=== PATIENT | female | born 1965 | race Caucasian/White ===

== ENCOUNTER 2017-11-30 15:28 | Emergency (ER) | payer BC, OTHER ==
[~2017-11-30] VITALS: Ht 165.1 cm; Wt 94.6 kg
[~2017-11-30 15:28] MED LIST: ACET1TAB84 PO; FRRS300 PO; IBUP-1105 PO; OXYC-57 PO
[2017-11-30 15:34] VITALS: TEMP 36.7; Ht 165.1 cm; Wt 94.6 kg
[2017-11-30] MEDS ORDERED: FERR1TAB13 PO (16:24)
[2017-11-30] MEDS ORDERED: IBUP-103 PO (16:24)
--- NOTE | 2017-11-30 16:43 | DIAGNOSTIC IMAGING REPORT ---
R TIBIA/FIBULA 2 VIEWS ROUTINE CLINICAL HISTORY: R lower leg pain pain COMPARISON: None. DISCUSSION: The bones and joint spaces appear intact. There is no evidence of fracture, dislocation or bony disease. There is no evidence for soft tissue swelling. IMPRESSION: Negative study. The above report was generated using voice recognition software. It may contain grammatical, syntax or spelling errors. Electronically signed by: Alex Torres M.D. 11/30/2017 4:41 PM Dictated Date/Time: 11/30/2017 4:41 PM
[2017-11-30] MEDS ORDERED: HYDR-5688 PO (17:29)
[2017-11-30 17:49] VITALS: BP 168/82; PULSE 78; O2SAT 98
--- NOTE | 2017-12-01 16:10 | EMERGENCY ROOM VISIT NOTE ---
ED Visit Note First contact with patient: 15:39 Chief Complaint: Right calf pain. History of Present Illness: Ms. Langley is a 52-year-old white female who ambulates into the ED on crutches accompanied by her complaining of left calf pain. Historically patient reports she has had a previous DVT in the right leg. 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 She reports last evening about 5 PM she was working with the cows and she reports they started to encroach in her area. She started pushing them away and when she twisted to run away she felt a popping sensation in the area of the gastrocnemius. She reports since that time she has been having pain in the area of the gastrocnemius and difficulty walking. Currently she describes her pain as a sharp/throbbing discomfort in the gastrocnemius. While at rest her pain is 1/10 and with ambulation and dorsiflexion her pain is 8/10. Her pain also increases but to a lesser extent with palpation. She has been using ibuprofen without relief of her discomfort. She denies any associated symptoms including skin eruptions, skin color changes, upper respiratory tract symptoms, cough, wheezing, shortness of breath , chest pain, palpitations, orthopnea, recent surgery/inactivity/extended travel , claudication, cramping, right hip pain, right thigh pain, right ankle pain, right foot pain, right lower extremity weakness/numbness/tingling. Review of Systems: As noted above in history of present illness. 8 body systems were reviewed and found to be negative as noted above. Past Medical History: As previously noted. Current Medications: Iron tablets, ibuprofen and acetaminophen. Allergies to Medications: Penicillin. Social History: Patient is currently employed; she feels safe in her home environment; she denies tobacco and alcohol use. Physical Examination: Vital Signs: Date Time Temp Pulse Resp B/P (MAP) Pulse Ox O2 Delivery O2 Flow Rate FiO2 11/30/17 17:49 78 16 168/82 98 11/30/17 15:34 36.7 83 18 152/87 95 Room Air GENERAL: 52-year-old female in mild to moderate distress due to pain, nontoxic- appearing, afebrile and hemodynamically stable. NEUROLOGICAL: Awake, alert and oriented to person, place and time. Answering questions appropriately and following commands. SKIN: Warm, dry and pink. No soft tissue eruptions or trauma noted. BACK: No tenderness over the bony lumbar spine. Full range of motion of the lumbar spine. No paraspinous muscle tenderness or spasm. RIGHT LOWER EXTREMITY: No gross bony deformity. No shortening or malrotation. No tenderness over the hip, thigh, anterior knee, ankle or foot. Mild to moderate tenderness over the mid aspect of the gastrocnemius. This area is firm also but is not erythematous or edematous. I believe this is consistent with a possible muscle rupture that has rolled superiorly. Throughout the knee there is no joint line tenderness. No laxity of the collateral cruciate ligaments. Negative patellar apprehension test. Negative ballottement test. Ganesh's test was deferred. Patient has minimally diminished strength in plantarflexion of the ankle. The Achilles tendon was palpable but not tender or erythematous. She had markedly diminished dorsiflexion strength which dramatically increased her discomfort. There is no dependent edema. No palpable cords. Distal pulses, sensation and capillary refill was intact. ED Course: Patient is assessed as noted above. Patient's medication list was reviewed. Patient was offered pain medication and refused. Right Lower Leg X-Rays: Were read by myself and the radiologist showing no acute fractures or dislocations. Patient was placed in an Ortho-Glass splint with the knee and partial plantar flexion; patient did bring crutches from a previous left leg injury and they were reevaluated to make sure they were fitting appropriately.. Patient was educated about today's findings and instructed on her treatment plan ; she verbalized understanding and agreement with this plan. Clinical Impression: Right calf pain. Decision-Making: Initially my differential diagnosis I considered gastrocnemius strain, Achilles tendon injury, tibial/fibula fracture and other causes. Disposition: Patient discharged home in stable condition accompanied by her ; prior to departure she was reassessed and subjectively reported she was feeling the same. Plan: Comfort measures were discussed with the patient including a sliding pain medication scale of acetaminophen, ibuprofen and [place]; her name was checked on state database and no red flags were noted and she was given appropriate narcotic precautions. Other comfort measures including rest, ice, splint and nonweightbearing crutches were discussed with the patient. Patient was encouraged to follow-up with orthopedics for recheck. Patient was encouraged to return the ED for worsening/uncontrolled pain, worsening swelling, leg weakness/numbness/tingling or any new/concerning symptoms.
== END 2017-11-30 17:47 | disposition home or self-care (01) ==
LOC: C.EDB 15:29 → C.EDD 17:47
DX: M79.661 Pain in right lower leg (principal); X50.1XXA Overexertion from prolonged static or awkward postures, initial encounter; Y92.79 Other farm location as the place of occurrence of the external cause; Y99.0 Civilian activity done for income or pay

== ENCOUNTER → 2017-12-04 | Outpatient (CLI) | payer OTHER ==
[~2017-12-04] MED LIST changes: +FERR1TAB13 PO; -FRRS300 PO; +HYDR-5688 PO; +IBUP-103 PO; -IBUP-1105 PO; -OXYC-57 PO
--- NOTE | 2017-12-04 16:26 | DIAGNOSTIC IMAGING REPORT ---
VENOUS DOPP LOWER EXT UNILAT HISTORY: 52 years-old Female HX DVT/PE, R LEG MUSCLE TEAR acute right leg pain and swelling COMPARISON: Duplex venous Doppler study of lower extremities 09/07/2015 TECHNIQUE: Multiple real-time sonographic images of the right lower extremity deep venous structures were obtained assessing grayscale appearance, color and spectral flow FINDINGS: The common femoral, profunda femoris and superficial femoral veins are patent. Occlusive thrombus with noncompressibility of the vessel involves the popliteal vein extending from the proximal portion of the vessel through the distal aspect of the posterior tibial and one of the paired peroneal veins. IMPRESSION: Occlusive deep venous thrombosis of the popliteal vein extending into the distal aspect of the posterior tibial vein and involving one of the paired peroneal veins. The above report was generated using voice recognition software. It may contain grammatical, syntax or spelling errors. Electronically signed by: Koko Clements M.D. 12/04/2017 4:24 PM Dictated Date/Time: 12/04/2017 4:21 PM
== END | disposition home or self-care (01) ==
LOC: C.ULTR 15:53
PROVIDERS: ATTEND Family Medicine Sports Medicine
DX: I82.4Z1 Acute embolism and thrombosis of unspecified deep veins of right distal lower extremity (principal); Z86.718 Personal history of other venous thrombosis and embolism; S86.119A Strain of other muscle(s) and tendon(s) of posterior muscle group at lower leg level, unspecified leg, initial encounter; X58.XXXA Exposure to other specified factors, initial encounter

== ENCOUNTER 2019-03-16 10:33 | Inpatient (IN) ==
[2019-03-16] MEDS ORDERED: MoRPHine SULFATE 4 MG/ML 1 ML CARP\\VIAL IV STA ×2 (11:01→11:37)
[2019-03-16] MEDS ORDERED: ONDANSETRON INJ 2 MG/ML 2 ML VIAL IV STA (11:01)
--- NOTE | 2019-03-16 11:05 | Emergency Department Note ---
History of Present Illness General Chief complaint: Abdominal Pain Stated complaint: ABD PAIN, VOMITING Time Seen by Provider: 03/16/19 10:54 History of Present Illness Maximum Pain Intensity: 10 This is a 53-year-old female that presents to the emergency department via private vehicle accompanied by male with complaints of "abdominal pain, vomiting". The patient notes that yesterday around 10 PM all of a sudden she began with diffuse abdominal pain that is worse in the left. Her bowel movements have been mucus-like over the past week. She has never had this before. No dysuria or urinary symptoms. She denies history of ulcerative colitis or Crohn's. She has a penicillin allergy, and notes that she has a history of PE and is currently on Xarelto but has not missed any doses. Last dose was around 10 PM but she vomited about half an hour later. No hematemesis. No hematochezia that she is aware of. This does not feel similar to any previous pain. No chest pain or shortness of breath. No fevers or chills. No abdominal surgeries. Home Medications Home Medications Medication Instructions Recorded Confirmed Type rivaroxaban [Xarelto] 20 mg PO PM 03/16/19 03/16/19 History Allergies Allergy/AdvReac Type Severity Reaction Status Date / Time Penicillins Allergy Severe HIVES, Verified 03/16/19 11:21 SOB, FACIAL SWELLING benzonatate AdvReac Intermediate rash Verified 03/16/19 11:21 [From Dior Young] Past Med/Surg History Medical History Lower leg fracture (Resolved) s/p pins & screws Pulmonary embolism (Chronic) Surgical History History of surgery on extremity Hx of appendectomy S/P lobectomy of lung Pt reports LLL resected s/p PE Family History Mother Factor V Leiden Social History Preferred Language: Macedonian Communication Ability: Effective Skylights Assembler Required: No Beliefs That Will Affect Care: None Current Living Situation: Spouse Other Information That Helps Us Care for You: No Feels Safe at Home: Yes Safety Concerns: Feels Safe At This Time Smoking Status: Never smoker Hx Alcohol Use: No Hx Substance Use: No Review of Systems A total of 10 systems reviewed and were otherwise negative Physical Exam Vital Signs Vital Signs - 24 hr 03/16/19 10:42 03/16/19 11:01 03/16/19 11:49 Temperature 36.6 C Temperature Source Oral Sepsis Recent Fever Within 48 Hours No Sepsis Action Taken by Nursing No Action Required Pulse Rate 102 H Pulse Rate [Left Finger] 83 Respiratory Rate 20 18 Respiratory Effort / Characteristics Non-Labored Non-Labored Spontaneous Respiratory Depth Normal Normal Respiratory Pattern Regular Blood Pressure 131/57 L Blood Pressure [Left Arm] 138/60 Blood Pressure Mean 81 Blood Pressure Mean [Left Arm] 86 Blood Pressure Position [Left Arm] Lying Pulse Oximetry 96 99 95 Oxygen Delivery Method Room Air Room Air Room Air 03/16/19 12:51 03/16/19 13:04 Temperature 37.0 C Temperature Source Oral Sepsis Recent Fever Within 48 Hours Sepsis Action Taken by Nursing Pulse Rate Pulse Rate [Left Finger] 79 82 Respiratory Rate 22 20 Respiratory Effort / Characteristics Non-Labored Spontaneous Non-Labored Spontaneous Respiratory Depth Normal Normal Respiratory Pattern Regular Blood Pressure Blood Pressure [Left Arm] 122/59 L 130/59 L Blood Pressure Mean Blood Pressure Mean [Left Arm] 80 82 Blood Pressure Position [Left Arm] Lying Lying Pulse Oximetry 100 97 Oxygen Delivery Method Room Air Room Air VITAL SIGNS - Vital signs and nursing notes were reviewed. Slightly hypotensive in regard to diastolic, slightly tachycardic at 102. GENERAL -53-year-old female appearing her stated age who is in no acute distress but appears to be in pain and is laying in the right position.. Communicates well with provider and answers questions appropriately. SKIN - Without rashes. No meningeal or petechial rash. HEAD - NC/AT. EYES - PERRL with EOMI bilaterally. Sclera anicteric. EARS - No deformities of external structures noted on gross examination bilaterally. NOSE - Midline and without cyanosis. No epistaxis or purulent drainage noted. MOUTH/OROPHARYNX - Without perioral cyanosis. NECK - Neck with FROM. Supple to palpation. No lymphadenopathy noted. No nuchal rigidity. LUNGS - Chest wall symmetric without accessory muscle use, intercostals retractions, or central cyanosis. Normal vesicular breath sounds CTA B/L. No wheezes, rales, or rhonchi appreciated. CARDIAC - RRR with S1/S2. No murmur, rubs, or gallops appreciated. ABDOMEN - Abdominal contour normal without pulsations or visible masses. BS normoactive all four quadrants. Diffuse abdominal tenderness noted throughout. No palpable masses, hepatosplenomegaly, or ascites noted. EXTREMITIES - No clubbing or peripheral cyanosis. No pretibial edema present.+5/5 strength noted in UE/LE bilaterally. NEUROLOGIC - Cranial nerves II through XII grossly intact. PSYCH - A&Ox3 and cooperates fully with examiner. Pt is very pleasant and interacts well with examiner. RECTAL exam: Large amount of hemorrhoids were noted. There is no bright red blood. No stool was visualized. Exam had to be stopped short secondary to patient not being able to tolerate the exam. There was no stool seen. I did nonetheless test with Hemoccult and it was negative. Please be aware this could be a false negative. Course Administered Medications Pantoprazole Sodium 40 mg/ (Dextrose) 100 mls @ 20 mls/hr IV Q5H YUNG Stop: 04/15/19 12:59 Last Admin: 03/16/19 13:43 Dose: 20 mls/hr Documented by: [id number] Ciprofloxacin (Cipro) 400 mg in 200 mls @ 100 mls/hr IV Q12H YUNG Stop: 03/26/19 15:59 Last Admin: 03/16/19 16:20 Dose: 100 mls/hr Documented by: [id number] Metronidazole (Flagyl) 500 mg in 100 mls @ 100 mls/hr IV Q8H YUNG Stop: 03/26/19 15:59 Last Infusion: 03/16/19 17:20 Dose: 0 mls/hr Documented by: [id number] Admin: 03/16/19 16:18 Dose: 100 mls/hr Documented by: [id number] Ioversol (Optiray 320 100ml) 94 ml IV ONCE PRN PRN Reason: Interaction Checking Stop: 03/20/19 12:19 Last Admin: 03/16/19 12:21 Dose: 94 ml Documented by: [id number] Morphine Sulfate (Morphine Sulfate) 4 mg IV Q4H PRN PRN Reason: Pain Stop: 03/30/19 15:03 Last Admin: 03/16/19 16:25 Dose: 4 mg Documented by: [id number] Discontinued Medications Fentanyl Citrate (Fentanyl Citrate) 25 mcg IV NOW STA Stop: 03/16/19 13:29 Last Admin: 03/16/19 14:08 Dose: 25 mcg Documented by: [id number] Sodium Chloride (Nss 1000ml) 1,000 mls @ 999 mls/hr IV .Q1H1M YUNG Stop: 03/16/19 12:15 Last Infusion: 03/16/19 12:48 Dose: 0 mls/hr Documented by: [id number] Admin: 03/16/19 11:12 Dose: 999 mls/hr Documented by: [id number] Sodium Chloride (Nss 1000ml) 1,000 mls @ 999 mls/hr IV .Q1H1M YUNG Stop: 03/16/19 14:00 Last Infusion: 03/16/19 15:09 Dose: 0 mls/hr Documented by: [id number] Admin: 03/16/19 14:01 Dose: 999 mls/hr Documented by: [id number] Pantoprazole Sodium 80 mg/ (Dextrose) 120 mls @ 480 mls/hr IV NOW STA Stop: 03/16/19 13:13 Last Infusion: 03/16/19 14:22 Dose: 0 mls/hr Documented by: [id number] Admin: 03/16/19 13:43 Dose: 480 mls/hr Documented by: [id number] Morphine Sulfate (Morphine Sulfate) 4 mg IV NOW STA Stop: 03/16/19 11:02 Last Admin: 03/16/19 11:12 Dose: 4 mg Documented by: [id number] Morphine Sulfate (Morphine Sulfate) 4 mg IV NOW STA Stop: 03/16/19 11:38 Last Admin: 03/16/19 11:45 Dose: 4 mg Documented by: [id number] Ondansetron HCl (Zofran) 4 mg IV NOW STA Stop: 03/16/19 11:02 Last Admin: 03/16/19 11:12 Dose: 4 mg Documented by: [id number] Medical Decision Making Laboratory Data Result diagrams: 03/16/19 11:08 03/16/19 11:08 Lab Results 03/16/19 03/16/19 03/16/19 Range/Units 11:08 11:08 11:08 WBC 13.38 H (4.8-10.8) K/uL RBC 3.68 L (4.2-5.4) M/uL Hgb 6.1 L* (12.0-16.0) g/dL Hct 22.8 L (37-47) % MCV 62.0 L (80-100) fL MCH 16.6 L (25-34) pg MCHC 26.8 L (32-36) g/dL RDW Std Deviation 46.5 H (36.4-46.3) fL RDW Coeff of Omero 20.8 H (11.5-14.5) % Plt Count 371 (130-400) K/uL MPV 8.9 (7.4-10.4) fL Immature Gran % (Auto) 0.2 % Neut % (Auto) 84.5 % Lymph % (Auto) 9.7 % [place] % (Auto) 5.5 % Eos % (Auto) 0.0 % Baso % (Auto) 0.1 % Immature Gran # (Auto) 0.03 H (0.00-0.02) K/uL Neut # (Auto) 11.31 H (1.4-6.5) K/uL Lymph # (Auto) 1.30 (1.2-3.4) K/uL [place] # (Auto) 0.73 H (0.11-0.59) K/uL Eos # (Auto) 0.00 (0-0.5) K/uL Baso # (Auto) 0.01 (0-0.2) K/uL Hypochromasia Present Anisocytosis Present PT 10.7 (9.0-12.0) Seconds INR 1.0 (0.9-1.1) APTT 21.7 (21.0-31.0) Seconds PTT Ratio 0.8 Sodium 136 (136-145) mmol/L Potassium 3.4 L (3.5-5.1) mmol/L Chloride 105 (98-107) mmol/L Carbon Dioxide 18 L (21-32) mmol/L Anion Gap 13.0 H (3-11) BUN 12 (7-18) mg/dl Creatinine 1.03 (0.6-1.2) mg/dl Est Cr Clr Drug Dosing 71.3 ml/min Est GFR ( Amer) 71.9 Est GFR (Non-Af Amer) 62.0 BUN/Creatinine Ratio 11.4 (10-20) Glucose 134 H (70-99) mg/dl Lactate (0.4-2.0) mmol/L Calcium 9.4 (8.5-10.1) mg/dl Magnesium 1.9 (1.8-2.4) mg/dl Total Bilirubin 0.6 (0.2-1) mg/dl AST 25 (15-37) U/L ALT 34 (12-78) U/L Alkaline Phosphatase 65 (45-117) U/L Troponin I < 0.015 (0-0.045) ng/ml Total Protein 8.0 (6.4-8.2) gm/dl Albumin 3.8 (3.4-5.0) gm/dl Globulin 4.2 H (2.5-4.0) gm/dl Albumin/Globulin Ratio 0.9 (0.9-2) Lipase 86 (73-393) U/L Blood Type Blood Type Recheck Antibody Screen Crossmatch 03/16/19 03/16/19 03/16/19 Range/Units 11:08 12:05 12:23 WBC (4.8-10.8) K/uL RBC (4.2-5.4) M/uL Hgb (12.0-16.0) g/dL Hct (37-47) % MCV (80-100) fL MCH (25-34) pg MCHC (32-36) g/dL RDW Std Deviation (36.4-46.3) fL RDW Coeff of Omero (11.5-14.5) % Plt Count (130-400) K/uL MPV (7.4-10.4) fL Immature Gran % (Auto) % Neut % (Auto) % Lymph % (Auto) % [place] % (Auto) % Eos % (Auto) % Baso % (Auto) % Immature Gran # (Auto) (0.00-0.02) K/uL Neut # (Auto) (1.4-6.5) K/uL Lymph # (Auto) (1.2-3.4) K/uL [place] # (Auto) (0.11-0.59) K/uL Eos # (Auto) (0-0.5) K/uL Baso # (Auto) (0-0.2) K/uL Hypochromasia Anisocytosis PT (9.0-12.0) Seconds INR (0.9-1.1) APTT (21.0-31.0) Seconds PTT Ratio Sodium (136-145) mmol/L Potassium (3.5-5.1) mmol/L Chloride (98-107) mmol/L Carbon Dioxide (21-32) mmol/L Anion Gap (3-11) BUN (7-18) mg/dl Creatinine (0.6-1.2) mg/dl Est Cr Clr Drug Dosing ml/min Est GFR ( Amer) Est GFR (Non-Af Amer) BUN/Creatinine Ratio (10-20) Glucose (70-99) mg/dl Lactate 3.9 H* (0.4-2.0) mmol/L Calcium (8.5-10.1) mg/dl Magnesium (1.8-2.4) mg/dl Total Bilirubin (0.2-1) mg/dl AST (15-37) U/L ALT (12-78) U/L Alkaline Phosphatase (45-117) U/L Troponin I (0-0.045) ng/ml Total Protein (6.4-8.2) gm/dl Albumin (3.4-5.0) gm/dl Globulin (2.5-4.0) gm/dl Albumin/Globulin Ratio (0.9-2) Lipase (73-393) U/L Blood Type A Positive Blood Type Recheck A Positive Antibody Screen NEGATIVE Crossmatch See Detail Imaging Data Radiologist's Impression: ABDOMEN AND PELVIS CT WITH IV CONTRAST CT DOSE: 914.89 mGycm HISTORY: Acute generalized abdominal pain diffuse abd pain, mucus stools. TECHNIQUE: Multiaxial CT images of the abdomen and pelvis were performed following the use of intravenous contrast. A dose lowering technique was utilized adhering to the principles of ALARA. COMPARISON STUDY: CTA of the chest 04/05/2018 FINDINGS: Minimal dependent subsegmental bibasilar atelectasis. There is no pneumatosis or pneumoperitoneum. The imaged inferior cardiac chambers are unremarkable. Trace pericardial effusion. Mild nonspecific periportal edema. Liver is otherwise unremarkable. The spleen, pancreas and adrenal glands are also unremarkable. There is suggestion of mild gallbladder wall thickening. No cholelithiasis or biliary ductal dilation identified. Kidneys, ureters and urinary bladder are within normal limits. Uterus and adnexa are also within normal limits. Mild calcified plaque of the abdominal aorta without aneurysm. There is no adenopathy. Small hiatal hernia. No bowel obstruction. Trace free pelvic fluid. Suggestion of mild wall thickening noted throughout the mid to distal sigmoid colon. Mild colonic diverticulosis without acute diverticulitis. Terminal ileum is unremarkable. The appendix is not diagnostically visualized. No secondary signs of acute appendicitis. Tiny fat filled periumbilical hernia, diastases 1.9 cm. Soft tissues and breast parenchyma are unremarkable. Multilevel spondylitic spurring and facet arthrosis. IMPRESSION: 1. Mild wall thickening about the mid to distal sigmoid colon may be secondary to partial distention versus a nonspecific colitis. Correlate clinically. Additionally, there is trace free pelvic fluid which may be on a reactive basis. 2. Suggestion of mild gallbladder wall thickening. Correlate clinically. 3. No bowel obstruction, pneumatosis or pneumoperitoneum. 4. Small hiatal hernia. 5. Additional findings as above. Electronically signed by: Koko Clements M.D. 03/16/2019 12:41 PM MDM Narrative Patient was seen and evaluated as above in room C9. Review was performed of nursing notes and vital signs. After obtaining a thorough history and physical examination the above work up was performed. She presents to us today with lower abdominal pain. She is nontoxic on exam but appears to be in pain and is laying on the right side in the position. She was given IV morphine x2. Zofran for nausea. Leukocytosis of 13.38 with significant anemia with hemoglobin of 6.1. Type and screen/cross for 2 units were ordered. Consent was obtained by the attending physician. Coags are normal. Potassium 3.4. Lactic is 3.9. She was given fluids. She is a positive. I discussed these findings with Dr. Thomason. We discussed how the patient had the last dose of Xarelto last night and there is likely very little in her system as she vomited about half an hour after and has not had any today. No indication to reverse at this time however we discussed benefit versus risk of TXA but will hold at this time. A ratio of 2-1 red cell to plasma transfusion was recommended. She can be reached at [phone] with any questions. The patient was then managed pain farrell with fentanyl noting that she became slightly hypotensive. The concern is that with her decreased volume she could have had a slow GI bleed and now has ischemic colitis. CT of the abdomen pelvis shows nonspecific colitis. Given her lactic elevation and level of pain I believe it is reasonable until another diagnosis can be made. Case discussed with the attending physician, and subsequently the hospitalist and implementation project coordinator. Please refer to further documentation regarding her stay. Pharmacy did provide Protonix bolus drip. A rectal exam was performed on the patient with nurse post partum nurse at bedside. A large amount of hemorrhoids were noted but no bright red blood or melena. I will note that the patient had a difficult time tolerating this and this was stopped and no stool was able to be visualized. Although the Hemoccult was negative this could be a false negative. Patient was educated upon today's findings and will be admitted to the ICU for further evaluation and management. Case was discussed with the attending physician. GCS: 15 In the evaluation and treatment of this patient, the following differential diagnoses were considered: ASC, CO, Pneumonia, GERD, Cholecystitis, Ascending Cholangitis, dissection, ischemic colitis, Cholydocholithiasis, Bowel Obstruction, PE, Amongst Others. Impression & Plan Colitis, Anemia Critical Care Time Critical Care Time: Yes I have personally spent greater than 60 minutes of critical care time in the direct management of this patient. This includes bedside care, interpretation of diagnostic studies, and testing, discussion with consultants, patient, and family members, and other required patient management activities. This 60 minutes is in excess of all separately billable procedures. Discharge Plan Visit Data *Final* Discharge Date/Time: 03/16/19 14:55 Chief Complaint: Abdominal Pain Stated Complaint: ABD PAIN, VOMITING ED Provider: Ramon Whalen ED Midlevel Provider: Ulisses Alonso Discharge Problem: Colitis, Anemia Patient Disposition: Admitted As Inpatient Discharge Instructions Interventions: ED Discharge Assessment Last Done: 03/16/19 14:55
[2019-03-16] MEDS ORDERED: SODIUM CHLORIDE 0.9% 1000ML 1,000 ML IV SCH ×2 (11:15→13:00)
[2019-03-16 11:43] LABS: Partial Thromboplastin Ratio 0.8; Partial Thromboplastin Time 21.7 Seconds (21.0-31.0); Prothrombin Time 10.7 Seconds (9.0-12.0)
[2019-03-16 11:46] LABS: Alanine Aminotransferase 34 U/L (12-78); Albumin Level 3.8 gm/dl (3.4-5.0); Aspartate Aminotransferase 25 U/L (15-37); BUN Creatinine Ratio 11.4 (10-20); Blood Urea Nitrogen 12 mg/dl (7-18); Calcium 9.4 mg/dl (8.5-10.1); Carbon Dioxide 18 mmol/L (21-32); Chloride 105 mmol/L (98-107); Creatinine Clr Calc Pharmacy 71.3 ml/min; Est GFR (African American) 71.9; Glucose 134 mg/dl (70-99); Magnesium 1.9 mg/dl (1.8-2.4); Potassium 3.4 mmol/L (3.5-5.1); Sodium 136 mmol/L (136-145)
[2019-03-16 11:47] LABS: Hematocrit (blood only) 22.8 % (37-47); Hemoglobin 6.1 g/dL (12.0-16.0); Mean Corpuscular Hgb Conc 26.8 g/dL (32-36); Mean Platelet Volume 8.9 fL (7.4-10.4); Platelet Count 371 K/uL (130-400); RDW Coefficient of Variation 20.8 % (11.5-14.5); RDW Standard Deviation 46.5 fL (36.4-46.3); Red Blood Count 3.68 M/uL (4.2-5.4); White Blood Count 13.38 K/uL (4.8-10.8)
[2019-03-16 11:51] LABS: Albumin Globulin Ratio 0.9 (0.9-2); Alkaline Phosphatase 65 U/L (45-117); Bilirubin,Total 0.6 mg/dl (0.2-1); Globulin 4.2 gm/dl (2.5-4.0); Troponin I < 0.015 ng/ml (0-0.045)
[2019-03-16] MEDS ORDERED: SODIUM CHLORIDE 0.9% 250 ML IV PRN ×2 (12:09→13:03)
[2019-03-16] MEDS ORDERED: IOVERSOL 100ml IV PRN (12:20)
[2019-03-16 12:26] LABS: Anisocytosis Present; Basophils # (auto) 0.01 K/uL (0-0.2); Basophils % (auto) 0.1 %; Hypochromasia Present; Immature Granulocytes # (auto) 0.03 K/uL (0.00-0.02); Immature Granulocytes % (auto) 0.2 %; Lymphocytes % (auto) 9.7 %; Monocytes # (auto) 0.73 K/uL (0.11-0.59); Monocytes % (auto) 5.5 %; Neutrophils # (auto) 11.31 K/uL (1.4-6.5); Neutrophils % (auto) 84.5 %
--- NOTE | 2019-03-16 12:42 | CT Scan Report ---
ABDOMEN AND PELVIS CT WITH IV CONTRAST CT DOSE: 914.89 mGycm HISTORY: Acute generalized abdominal pain diffuse abd pain, mucus stools. TECHNIQUE: Multiaxial CT images of the abdomen and pelvis were performed following the use of intrave nous contrast. A dose lowering technique was utilized adhering to the principles of ALARA. COMPARISON STUDY: CTA of the chest 04/05/2018 FINDINGS: Minimal dependent subsegmental bibasilar atelectasis. There is no pneumatosis or pneumoperitoneum. Th e imaged inferior cardiac chambers are unremarkable. Trace pericardial effusion. Mild nonspecific periportal edema. Liver is otherwise unremarkable. The spleen, pancreas and adrenal glands are also unremarkable. There is suggestion of mild gallbladder wall thickening. No cholelithia sis or biliary ductal dilation identified. Kidneys, ureters and urinary bladder are within normal lock its. Uterus and adnexa are also within normal limits. Mild calcified plaque of the abdominal aorta wi thout aneurysm. There is no adenopathy. Small hiatal hernia. No bowel obstruction. Trace free pelvic fluid. Suggestion of mild wall thickenin g noted throughout the mid to distal sigmoid colon. Mild colonic diverticulosis without acute diverti culitis. Terminal ileum is unremarkable. The appendix is not diagnostically visualized. No secondary signs of acute appendicitis. Tiny fat filled periumbilical hernia, diastases 1.9 cm. Soft tissues and breast parenchyma are unremarkable. Multilevel spondylitic spurring and facet arthrosis. IMPRESSION: 1. Mild wall thickening about the mid to distal sigmoid colon may be secondary to partial distention versus a nonspecific colitis. Correlate clinically. Additionally, there is trace free pelvic fluid wh ich may be on a reactive basis. 2. Suggestion of mild gallbladder wall thickening. Correlate clinically. 3. No bowel obstruction, pneumatosis or pneumoperitoneum. 4. Small hiatal hernia. 5. Additional findings as above. Electronically signed by: Koko Clements M.D. 03/16/2019 12:41 PM
[2019-03-16] MEDS ORDERED: PANTOprazole 80 MG in DEXTROSE 5% 100 ML IV STA (12:59)
[2019-03-16] MEDS ORDERED: fentaNYL citrate 100 MCG/2 ML VIAL IV STA (13:28)
[2019-03-16] MEDS: PANTOprazole 40 MG in DEXTROSE 5% 100 ML IV SCH ×3 (13:43→23:28)
--- NOTE | 2019-03-16 14:00 | Critical Care Consultation ---
Date of Consultation March 16, 2019 Assessment & Plan (1) Abdominal pain: Neuro- awake alert. pain control CV- HD stable. elevated lactic acid. fluids and recheck Pulmonary- sat well on RA ID- abx for colitis cipro/metronidazole. Renal- cr ok. hypokalemia will replace GI- abdominal pain nonspecific colitis on CT. I am concerned about inflammatory bowel disease. it is not clear to me that she has acute GI bleed. I suspect her anemia is more chronic. will need GI eval for source of bleeding as well as for colitis. nausea control Heme- leukocytosis. anemia with low MCV likely iron deficiency. needs colonoscopy and possibly EGD for source. hold anticoagulation for now with possible bleeding. history of pulmonary embolism. has been on anticoagulation for 3 years. unsure she needs to continue as she had aprovoked PE. per pt has had hypercoagulable workup in the past that was negative Endocrine- keep blood sugars <180 Dispo- will need admission for further eval (2) Colitis: (3) Anemia: History of Present Illness Reason for Consultation: possible GI bleed History of Present Illness 53 y/o female with a history of pulmonary embolism related to leg surgery presenting with abdominal pain which started yesterday. She has also has nausea and vomiting last this morning. no blood. says at end vomit was yellow. no blood or dark stool. has been having trouble having a bowel movement and has had mucus in stool. Her abdominal pain is diffuse but worse in lower abd. prior to the pain she says he has generally been weak. She says she has been craving ice for the last 3 months. She recently had a cough and was treated with Tessalon pearls. she denies URI symptoms at that time and said her chest felt congested. In the ED she was found to have nonspecific colitis on CT. no clear bleeding source with hgb 6.1. no family history of inflammatory bowel disease. Allergies Allergy/AdvReac Type Severity Reaction Status Date / Time Penicillins Allergy Severe HIVES, Verified 03/16/19 11:21 SOB, FACIAL SWELLING benzonatate AdvReac Intermediate rash Verified 03/16/19 11:21 [From Tesganga Young] Home Medications Home Medications Medication Instructions Recorded Confirmed Type rivaroxaban [Xarelto] 20 mg PO PM 03/16/19 03/16/19 History Patient History Medical History Lower leg fracture (Resolved) Pulmonary embolism (Chronic) Surgical History History of surgery on extremity Hx of appendectomy Family History Mother Factor V Leiden Social History Feels Safe at Home: Yes Smoking Status: Never smoker Review of Systems Constitutional: + fatigue and + weakness; no fever and no chills Eyes: no diplopia and no worsening vision Ear, Nose, Mouth, Throat: no dizziness, no nasal congestion, no sinus pain/pressure and no sore throat Respiratory: + cough and + chest congestion; no dyspnea and no dyspnea on exertion Cardiovascular: no chest pain, no chest pain with activity, no palpitations and no lightheadedness Gastrointestinal: + abdominal pain, + nausea and + vomiting; no hematemesis, no diarrhea/loose stools, no blood in stools and no melena Genitourinary: no dysuria, no difficulty urinating, no urinary frequency and no urinary urgency Musculoskeletal: no back pain, no joint pain and no myalgia Integumentary: no rash and no new lesions Neurologic: no localized weakness, no numbness, no syncope and no headache(s) Psychiatric: no depression and no anxiety Endocrine: + fatigue; no cold intolerance and no heat intolerance Hematologic / Lymphatic: no easy bleeding and no easy bruising Allergy / Immunological: no rash Physical Exam Physical Exam: Constitutional: uncomfortable in pain NAD HEENT: normocephalic atraumatic. MMM. no cervical lymphadenopathy CV: RRR nl s1,s2 no murmurs rubs or gallops Lungs: clear to auscultation bilaterally. no accessory muscle use Abd: soft diffusely tender nondistended. + bowel sounds (rectal per ED hemorrhoids no stool, no gross blood) Ext: no edema. no cyanosis, no clubbing Skin: warm dry. no rash Neuro: alert and oriented. moving all extremities Psych: slightly anxious Results & Data Vital Signs (Past 12 Hours) Vital Signs Temp Pulse Pulse Resp BP BP Pulse Ox 03/16/19 13:04 37.0 C 82 20 130/59 L 97 03/16/19 12:51 79 22 122/59 L 100 03/16/19 11:49 83 18 138/60 95 03/16/19 11:01 99 07/01/19 10:42 36.6 C 102 H 20 131/57 L 96 Laboratory Results Laboratory Results - last 24 hr 03/16/19 03/16/19 03/16/19 11:08 11:08 11:08 WBC 13.38 H RBC 3.68 L Hgb 6.1 L* Hct 22.8 L MCV 62.0 L MCH 16.6 L MCHC 26.8 L RDW Std Deviation 46.5 H RDW Coeff of Omero 20.8 H Plt Count 371 MPV 8.9 Immature Gran % (Auto) 0.2 Neut % (Auto) 84.5 Lymph % (Auto) 9.7 Nolan % (Auto) 5.5 Eos % (Auto) 0.0 Baso % (Auto) 0.1 Immature Gran # (Auto) 0.03 H Neut # (Auto) 11.31 H Lymph # (Auto) 1.30 Nolan # (Auto) 0.73 H Eos # (Auto) 0.00 Baso # (Auto) 0.01 Hypochromasia Present Anisocytosis Present PT 10.7 INR 1.0 APTT 21.7 PTT Ratio 0.8 Sodium 136 Potassium 3.4 L Chloride 105 Carbon Dioxide 18 L Anion Gap 13.0 H BUN 12 Creatinine 1.03 Est Cr Clr Drug Dosing 71.3 Est GFR ( Amer) 71.9 Est GFR (Non-Af Amer) 62.0 BUN/Creatinine Ratio 11.4 Glucose 134 H Lactate Calcium 9.4 Magnesium 1.9 Total Bilirubin 0.6 AST 25 ALT 34 Alkaline Phosphatase 65 Troponin I < 0.015 Total Protein 8.0 Albumin 3.8 Globulin 4.2 H Albumin/Globulin Ratio 0.9 Lipase 86 Blood Type Blood Type Recheck Antibody Screen Crossmatch 03/16/19 03/16/19 03/16/19 11:08 12:05 12:23 WBC RBC Hgb Hct MCV MCH MCHC RDW Std Deviation RDW Coeff of Omero Plt Count MPV Immature Gran % (Auto) Neut % (Auto) Lymph % (Auto) Nolan % (Auto) Eos % (Auto) Baso % (Auto) Immature Gran # (Auto) Neut # (Auto) Lymph # (Auto) Nolan # (Auto) Eos # (Auto) Baso # (Auto) Hypochromasia Anisocytosis PT INR APTT PTT Ratio Sodium Potassium Chloride Carbon Dioxide Anion Gap BUN Creatinine Est Cr Clr Drug Dosing Est GFR ( Amer) Est GFR (Non-Af Amer) BUN/Creatinine Ratio Glucose Lactate 3.9 H* Calcium Magnesium Total Bilirubin AST ALT Alkaline Phosphatase Troponin I Total Protein Albumin Globulin Albumin/Globulin Ratio Lipase Blood Type A Positive Blood Type Recheck A Positive Antibody Screen NEGATIVE Crossmatch See Detail Diagnostic Findings ABDOMEN AND PELVIS CT WITH IV CONTRAST CT DOSE: 914.89 mGycm HISTORY: Acute generalized abdominal pain diffuse abd pain, mucus stools. TECHNIQUE: Multiaxial CT images of the abdomen and pelvis were performed following the use of intravenous contrast. A dose lowering technique was utilized adhering to the principles of ALARA. COMPARISON STUDY: CTA of the chest 04/05/2018 FINDINGS: Minimal dependent subsegmental bibasilar atelectasis. There is no pneumatosis or pneumoperitoneum. The imaged inferior cardiac chambers are unremarkable. Trace pericardial effusion. Mild nonspecific periportal edema. Liver is otherwise unremarkable. The spleen, pancreas and adrenal glands are also unremarkable. There is suggestion of mild gallbladder wall thickening. No cholelithiasis or biliary ductal dilation identified. Kidneys, ureters and urinary bladder are within normal limits. Uterus and adnexa are also within normal limits. Mild calcified plaque of the abdominal aorta without aneurysm. There is no adenopathy. Small hiatal hernia. No bowel obstruction. Trace free pelvic fluid. Suggestion of mild wall thickening noted throughout the mid to distal sigmoid colon. Mild colonic diverticulosis without acute diverticulitis. Terminal ileum is unremarkable. The appendix is not diagnostically visualized. No secondary signs of acute appendicitis. Tiny fat filled periumbilical hernia, diastases 1.9 cm. Soft tissues and breast parenchyma are unremarkable. Multilevel spondylitic spurring and facet arthrosis. IMPRESSION: 1. Mild wall thickening about the mid to distal sigmoid colon may be secondary to partial distention versus a nonspecific colitis. Correlate clinically. Additionally, there is trace free pelvic fluid which may be on a reactive basis. 2. Suggestion of mild gallbladder wall thickening. Correlate clinically. 3. No bowel obstruction, pneumatosis or pneumoperitoneum. 4. Small hiatal hernia. 5. Additional findings as above. Electronically signed by: Koko Clements M.D. 03/16/2019 12:41 PM
--- NOTE | 2019-03-16 14:26 | History & Physical Report ---
Date of Service March 16, 2019 Assessment & Plan (1) Abdominal pain: Uncertain etiology CTAP noted for possible colitis Concerning for GIB in the setting of abd pain and xarelto use with anemia GI c/s pending Heme neg in the ED, but no stool obtained for that testing Hemoccult pending NPO with protonix gtt and IVF Holding xarelto, ED spoke with Dr. Thomason who felt it did not need reversed given pt had an episode of emesis shortly after taking it last night (2) Anemia: As noted above PRBC ordered in the ED Monitor (3) Pulmonary emboli: Hx of provoked PE 3 yrs ago Holding xarelto Prior hypercoag workup reported as neg (4) Hypokalemia: Replace and monitor (5) DVT prophylaxis: SCDs, holding rx due to above History of Present Illness Primary Care Provider: Paulo Weston MD 53 y/o F c/o abd pain. Pt states that this started suddenly last night after taking her xarelto. She had an episode of emesis at that time. Abd pain starts laterally and moves into the center of her abd. Her pain worsened and she had n/v this AM. Denies blood in her emesis. She has been constipated lately, no blood in her stool. She has never had abd pain like this in the past. Pt denies fever, SOB, chest pain, LE pain or swelling. Pt does feel somewhat improved s/p ED interventions, but still with abd pain. Allergies Allergy/AdvReac Type Severity Reaction Status Date / Time Penicillins Allergy Severe HIVES, Verified 03/16/19 11:21 SOB, FACIAL SWELLING benzonatate AdvReac Intermediate rash Verified 03/16/19 11:21 [From Tesganga Young] Home Medications Home Medications Medication Instructions Recorded Confirmed Type rivaroxaban [Xarelto] 20 mg PO PM 03/16/19 03/16/19 History Past Med/Surg History Medical History Lower leg fracture (Resolved) s/p pins & screws Pulmonary embolism (Chronic) Surgical History History of surgery on extremity Hx of appendectomy S/P lobectomy of lung Pt reports LLL resected s/p PE Family History Mother Factor V Leiden Social History Preferred Language: Sudanese Communication Ability: Effective [employer] Range Feeder Required: No Beliefs That Will Affect Care: None Current Living Situation: Spouse Other Information That Helps Us Care for You: No Feels Safe at Home: Yes Safety Concerns: Feels Safe At This Time Smoking Status: Never smoker Hx Alcohol Use: No Hx Substance Use: No Review of Systems Review of Systems: Pertinent positives and negatives reviewed in HPI--all others negative Physical Exam Constitutional: WD/WN, vitals as above + ill appearing Eyes: normal visual suero by confrontation and + anicteric sclerae Neck: normal visual inspection and trachea midline Respiratory: normal respiratory effort, lungs clear to auscultation Cardiovascular: Rate/Rhythm: regular rate and regular rhythm Gastrointestinal (Abdomen): Inspection/Auscultation: abdomen not distended Percussion/Palpation: + abdomen tender (diffuse) and abdomen soft Musculoskeletal: Head/Neck/Chest: normocephalic and head atraumatic negative for edema, peripheral pulses intact Skin: no rashes, warm and dry Neurologic: awake; not confused Speech / Cognition: normal speech Psychiatric: A+Ox3, euthymic affect Results & Data Vital Signs (Past 12 Hours) Vital Signs Temp Pulse Pulse Resp BP BP Pulse Ox 03/16/19 14:07 37.1 C 95 H 18 129/61 96 03/16/19 13:57 37.0 C 85 18 131/63 98 03/16/19 13:52 37 C 94 H 18 123/63 96 03/16/19 13:04 37.0 C 82 20 130/59 L 97 03/16/19 12:51 79 22 122/59 L 100 03/16/19 11:49 83 18 138/60 95 03/16/19 11:01 99 03/16/19 10:42 36.6 C 102 H 20 131/57 L 96 Diagnostic Findings CTAP: possible colitis of sigmoid colon ECG Additional Comments: Sinus arrhytmia seen prior Code Status & VTE Plan Code Status Full code VTE Prophylaxis Plan VTE Prophylaxis will be ordered: Yes PG Care Time/CCT Total # of Minutes Spent Total Time Spent with Patient: Total time spent is greater than 50% in coordination of care (as documented) at patient's floor/unit and/or counseling patient:
[2019-03-16] MEDS ORDERED: MAGNESIUM HYDROXIDE SUSP 30 ML UDC PO PRN (14:59)
[2019-03-16] MEDS ORDERED: ICU PROTOCOL FOR HYPERGLYCEMIA PRN (14:59)
[2019-03-16] MEDS: metroNIDAZOLE 500 MG/100 ML BAG IV SCH ×2 (16:18→23:31)
[2019-03-16] MEDS: CIPROFLOXACIN 400 MG/200 ML BAG IV SCH (16:20)
[2019-03-16] MEDS: MoRPHine SULFATE 4 MG/ML 1 ML CARP\\VIAL IV PRN ×2 (16:25→20:33)
[2019-03-16] MEDS: D5NSS + 20MEQ KCL 20 MEQ/1,000 ML BAG IV SCH (19:00)
[2019-03-16 19:23] LABS: Hematocrit (blood only) 27.9 % (37-47); Hemoglobin 8.1 g/dL (12.0-16.0); Mean Corpuscular Volume 68.6 fL (80-100); Platelet Count 251 K/uL (130-400); RDW Coefficient of Variation 24.4 % (11.5-14.5); RDW Standard Deviation 60.4 fL (36.4-46.3); Red Blood Count 4.07 M/uL (4.2-5.4); White Blood Count 20.38 K/uL (4.8-10.8)
[2019-03-16 23:57] LABS: Appearance Urine Clear (Clear); Bilirubin Urine Negative (Negative); Blood Urine Negative (Negative); Color Urine Yellow; Glucose Urine UA Negative (Negative); Ketones Urine Negative (Negative); Leukocyte Esterase Urine Negative (Negative); Nitrite Urine Negative (Negative); Protein Urine Negative (Negative); Specific Gravity Urine > 1.045 (1.000-1.030); Urobilinogen Urine Negative (Negative)
[2019-03-17 03:45] LABS: BUN Creatinine Ratio 8.6 (10-20); Calcium 8.5 mg/dl (8.5-10.1); Creatinine Clr Calc Pharmacy 82.5 ml/min; Est GFR (African American) 85.8; Phosphorus 2.7 mg/dl (2.5-4.9); Potassium 3.9 mmol/L (3.5-5.1)
[2019-03-17] MEDS: CIPROFLOXACIN 400 MG/200 ML BAG IV SCH ×2 (04:27→16:46)
[2019-03-17] MEDS: PANTOprazole 40 MG in DEXTROSE 5% 100 ML IV SCH ×4 (04:27→19:09)
[2019-03-17] MEDS: D5NSS + 20MEQ KCL 20 MEQ/1,000 ML BAG IV SCH ×2 (04:28→15:59)
[2019-03-17 04:31] LABS: Hematocrit (blood only) 27.3 % (37-47); Hemoglobin 7.8 g/dL (12.0-16.0); Mean Corpuscular Hgb Conc 28.6 g/dL (32-36); Mean Corpuscular Volume 67.7 fL (80-100); Mean Platelet Volume 9.5 fL (7.4-10.4); Platelet Count 267 K/uL (130-400); RDW Standard Deviation 59.5 fL (36.4-46.3); Red Blood Count 4.03 M/uL (4.2-5.4); White Blood Count 21.04 K/uL (4.8-10.8)
[2019-03-17 05:00] LABS: Anisocytosis Present; Basophils # (auto) 0.02 K/uL (0-0.2); Basophils % (auto) 0.1 %; Hypochromasia Present; Immature Granulocytes # (auto) 0.08 K/uL (0.00-0.02); Immature Granulocytes % (auto) 0.4 %; Lymphocytes # (auto) 1.54 K/uL (1.2-3.4); Lymphocytes % (auto) 7.3 %; Microcytosis Present; Monocytes # (auto) 1.39 K/uL (0.11-0.59); Monocytes % (auto) 6.6 %; Neutrophils # (auto) 18.01 K/uL (1.4-6.5); Neutrophils % (auto) 85.6 %; Poikilocytosis Present
[2019-03-17] MEDS ORDERED: INSULIN ASPART 100 UNITS/ML 3 ML PEN SC SCH (06:00)
[2019-03-17] MEDS ORDERED: CARBOHYDRATES FOR HYPOGLYCEMIA PO PRN (06:00)
[2019-03-17] MEDS ORDERED: GLUCOSE 10 TABS/TUBE PO PRN (06:00)
[2019-03-17] MEDS ORDERED: GLUCOSE 40% GEL 15 GM TUBE PO PRN (06:00)
[2019-03-17] MEDS ORDERED: DEXTROSE 50% 50 ML SYRINGE IV PRN (06:00)
[2019-03-17] MEDS ORDERED: GLUCAGON FOR INJ 1 MG VIAL IM PRN (06:00)
--- NOTE | 2019-03-17 07:52 | Critical Care Progress Note ---
Date of Service March 17, 2019 Assessment & Plan (1) Abdominal pain: Neuro- awake alert. pain control CV- HD stable. lactic acid improved Pulmonary- sat well on RA ID- abx for colitis cipro/metronidazole(pcn allergy) but unclear she has true infection. Renal- cr ok. GI- abdominal pain nonspecific colitis on CT. I am concerned about inflammatory bowel disease. it is not clear to me that she has acute GI bleed. I suspect her anemia is more chronic. will need GI eval for source of bleeding as well as for colitis. nausea control Heme- leukocytosis. anemia with low MCV likely iron deficiency. needs colonoscopy and possibly EGD for source. hold anticoagulation for now with possible bleeding. history of pulmonary embolism. has been on anticoagulation for 3 years. unsure she needs to continue as she had a provoked PE. per pt has had hypercoagulable workup in the past that was negative Endocrine- keep blood sugars <180 Dispo- ok to transfer out of the ICU (2) Colitis: (3) Anemia: Subjective no bleeding hgb responded appropriately abd pain improving and only present when she moves complains of a headache Physical Exam Physical Exam: Constitutional: Comfortable NAD HEENT: normocephalic atraumatic. MMM. CV: RRR nl s1,s2 no murmurs rubs or gallops Lungs: clear to auscultation bilaterally. no accessory muscle use Abd: soft diffusely tender nondistended. + bowel sounds Ext: no edema. no cyanosis, no clubbing Skin: warm dry. no rash Neuro: alert and oriented. moving all extremities Psych: slightly anxious Results & Data Vital Signs (Past 12 Hours) Vital Signs Temp Pulse BP Pulse Ox 03/17/19 06:30 87 93 03/17/19 06:13 91 H 122/68 91 03/17/19 06:07 110 H 94 03/17/19 05:40 37.1 C 88 100 03/17/19 05:30 84 100 03/17/19 05:00 90 133/64 100 03/17/19 04:30 91 H 100 03/17/19 04:01 98 H 133/88 100 03/17/19 04:00 103 H 99 03/17/19 03:30 89 97 03/17/19 03:00 100 H 133/67 96 03/17/19 02:30 95 H 100 03/17/19 02:00 94 H 128/66 99 03/17/19 01:30 91 H 98 03/17/19 01:00 90 131/67 96 03/17/19 00:30 88 97 03/17/19 00:20 89 98 03/17/19 00:10 36.9 C 90 136/71 96 03/17/19 00:00 92 H 136/71 94 03/16/19 23:50 95 H 93 03/16/19 23:40 103 H 88 L 03/16/19 22:50 107 H 96 03/16/19 22:40 99 H 90 03/16/19 22:30 99 H 93 03/16/19 22:20 96 H 94 03/16/19 22:10 98 H 94 03/16/19 22:00 100 H 129/70 92 03/16/19 21:00 100 H 130/60 90 03/16/19 20:00 92 H 135/63 97 Laboratory Results Laboratory Results - last 24 hr 03/16/19 03/16/19 03/16/19 11:08 11:08 11:08 WBC 13.38 H RBC 3.68 L Hgb 6.1 L* Hct 22.8 L MCV 62.0 L MCH 16.6 L MCHC 26.8 L RDW Std Deviation 46.5 H RDW Coeff of Omero 20.8 H Plt Count 371 MPV 8.9 Immature Gran % (Auto) 0.2 Neut % (Auto) 84.5 Lymph % (Auto) 9.7 Clay % (Auto) 5.5 Eos % (Auto) 0.0 Baso % (Auto) 0.1 Immature Gran # (Auto) 0.03 H Neut # (Auto) 11.31 H Lymph # (Auto) 1.30 Clay # (Auto) 0.73 H Eos # (Auto) 0.00 Baso # (Auto) 0.01 Absolute Nucleated RBC Nucleated RBC % (auto) Neutrophils % (Manual) Band Neutrophils % Lymphocytes % (Manual) Prolymphocyte % Reactive Lymphs % (Man) Monocytes % (Manual) Eosinophils % (Manual) Basophils % (Manual) Metamyelocytes % (Man) Myelocytes % (Man) Promyelocytes % (Man) Blast Cells % (Manual) Plasma Cell % (Manual) Other Cells % Nucleated RBC % Neutrophils # (Manual) Band Neutrophils # Total Absolute Neuts Lymphocytes # (Manual) Prolymphocyte # Reactive Lymphs # Total Abs Lymphocytes Monocytes # (Manual) Eosinophils # (Manual) Basophils # (Manual) Metamyelocytes # (Man) Myelocytes # (Manual) Promyelocytes # (Man) Blast Cells # (Man) Plasma Cell # (Manual) Other Cells # Nucleated RBCs # (Man) Hypersegmented Neuts Hyposegmented Neuts Hypogranular Neuts Large Granular Lymphs # Lrg Granular Lymphs Hairy Cells Smudge Cells Toxic Granulation Toxic Vacuolation Dohle Bodies Harmony Rods Platelet Estimate Hypogranular Platelets Clumped Platelets Giant Platelets Platelet Satelliting RBC Morphology Polychromasia Hypochromasia Present Poikilocytosis Basophilic Stippling Anisocytosis Present Microcytosis Macrocytosis Spherocytes Pappenheimer Bodies Sickle Cells Target Cells Tear Drop Cells Ovalocytes Stomatocytes [place] Bodies Echinocytes Acanthocytes (Spur) Rouleaux RBC Agglutinates Schistocytes RBC Morph Comment Sezary Cell PT 10.7 INR 1.0 APTT 21.7 PTT Ratio 0.8 Sodium 136 Potassium 3.4 L Chloride 105 Carbon Dioxide 18 L Anion Gap 13.0 H BUN 12 Creatinine 1.03 Est Cr Clr Drug Dosing 71.3 Est GFR ( Amer) 71.9 Est GFR (Non-Af Amer) 62.0 BUN/Creatinine Ratio 11.4 Glucose 134 H POC Glucose Lactate Calcium 9.4 Phosphorus Magnesium 1.9 Total Bilirubin 0.6 AST 25 ALT 34 Alkaline Phosphatase 65 Troponin I < 0.015 Total Protein 8.0 Albumin 3.8 Globulin 4.2 H Albumin/Globulin Ratio 0.9 Lipase 86 Urine Color Urine Appearance Urine pH Ur Specific [place] Urine Protein Urine Glucose (UA) Urine Ketones Urine Blood Urine Nitrite Urine Bilirubin Urine Urobilinogen Ur Leukocyte Esterase Nasal Screen MRSA (PCR) Blood Type Blood Type Recheck Antibody Screen Crossmatch 03/16/19 03/16/19 03/16/19 11:08 12:05 12:23 WBC RBC Hgb Hct MCV MCH MCHC RDW Std Deviation RDW Coeff of Omero Plt Count MPV Immature Gran % (Auto) Neut % (Auto) Lymph % (Auto) Clay % (Auto) Eos % (Auto) Baso % (Auto) Immature Gran # (Auto) Neut # (Auto) Lymph # (Auto) [place] # (Auto) Eos # (Auto) Baso # (Auto) Absolute Nucleated RBC Nucleated RBC % (auto) Neutrophils % (Manual) Band Neutrophils % Lymphocytes % (Manual) Prolymphocyte % Reactive Lymphs % (Man) Monocytes % (Manual) Eosinophils % (Manual) Basophils % (Manual) Metamyelocytes % (Man) Myelocytes % (Man) Promyelocytes % (Man) Blast Cells % (Manual) Plasma Cell % (Manual) Other Cells % Nucleated RBC % Neutrophils # (Manual) Band Neutrophils # Total Absolute Neuts Lymphocytes # (Manual) Prolymphocyte # Reactive Lymphs # Total Abs Lymphocytes Monocytes # (Manual) Eosinophils # (Manual) Basophils # (Manual) Metamyelocytes # (Man) Myelocytes # (Manual) Promyelocytes # (Man) Blast Cells # (Man) Plasma Cell # (Manual) Other Cells # Nucleated RBCs # (Man) Hypersegmented Neuts Hyposegmented Neuts Hypogranular Neuts Large Granular Lymphs # Lrg Granular Lymphs Hairy Cells Smudge Cells Toxic Granulation Toxic Vacuolation Dohle Bodies Harmony Rods Platelet Estimate Hypogranular Platelets Clumped Platelets Giant Platelets Platelet Satelliting RBC Morphology Polychromasia Hypochromasia Poikilocytosis Basophilic Stippling Anisocytosis Microcytosis Macrocytosis Spherocytes Pappenheimer Bodies Sickle Cells Target Cells Tear Drop Cells Ovalocytes Stomatocytes [place] Bodies Echinocytes Acanthocytes (Spur) Rouleaux RBC Agglutinates Schistocytes RBC Morph Comment Sezary Cell PT INR APTT PTT Ratio Sodium Potassium Chloride Carbon Dioxide Anion Gap BUN Creatinine Est Cr Clr Drug Dosing Est GFR ( Amer) Est GFR (Non-Af Amer) BUN/Creatinine Ratio Glucose POC Glucose Lactate 3.9 H* Calcium Phosphorus Magnesium Total Bilirubin AST ALT Alkaline Phosphatase Troponin I Total Protein Albumin Globulin Albumin/Globulin Ratio Lipase Urine Color Urine Appearance Urine pH Ur Specific [place] Urine Protein Urine Glucose (UA) Urine Ketones Urine Blood Urine Nitrite Urine Bilirubin Urine Urobilinogen Ur Leukocyte Esterase Nasal Screen MRSA (PCR) Blood Type A Positive Blood Type Recheck A Positive Antibody Screen NEGATIVE Crossmatch See Detail 03/16/19 03/16/19 03/16/19 14:45 19:07 19:07 WBC 20.38 H RBC 4.07 L Hgb 8.1 L Hct 27.9 L MCV 68.6 L D MCH 19.9 L MCHC 29.0 L RDW Std Deviation 60.4 H RDW Coeff of Omero 24.4 H Plt Count 251 MPV 9.0 Immature Gran % (Auto) Neut % (Auto) Lymph % (Auto) [place] % (Auto) Eos % (Auto) Baso % (Auto) Immature Gran # (Auto) Neut # (Auto) Lymph # (Auto) [place] # (Auto) Eos # (Auto) Baso # (Auto) Absolute Nucleated RBC Nucleated RBC % (auto) Neutrophils % (Manual) Band Neutrophils % Lymphocytes % (Manual) Prolymphocyte % Reactive Lymphs % (Man) Monocytes % (Manual) Eosinophils % (Manual) Basophils % (Manual) Metamyelocytes % (Man) Myelocytes % (Man) Promyelocytes % (Man) Blast Cells % (Manual) Plasma Cell % (Manual) Other Cells % Nucleated RBC % Neutrophils # (Manual) Band Neutrophils # Total Absolute Neuts Lymphocytes # (Manual) Prolymphocyte # Reactive Lymphs # Total Abs Lymphocytes Monocytes # (Manual) Eosinophils # (Manual) Basophils # (Manual) Metamyelocytes # (Man) Myelocytes # (Manual) Promyelocytes # (Man) Blast Cells # (Man) Plasma Cell # (Manual) Other Cells # Nucleated RBCs # (Man) Hypersegmented Neuts Hyposegmented Neuts Hypogranular Neuts Large Granular Lymphs # Lrg Granular Lymphs Hairy Cells Smudge Cells Toxic Granulation Toxic Vacuolation Dohle Bodies Harmony Rods Platelet Estimate Hypogranular Platelets Clumped Platelets Giant Platelets Platelet Satelliting RBC Morphology Polychromasia Hypochromasia Poikilocytosis Basophilic Stippling Anisocytosis Microcytosis Macrocytosis Spherocytes Pappenheimer Bodies Sickle Cells Target Cells Tear Drop Cells Ovalocytes Stomatocytes [place] Bodies Echinocytes Acanthocytes (Spur) Rouleaux RBC Agglutinates Schistocytes RBC Morph Comment Sezary Cell PT INR APTT PTT Ratio Sodium Potassium Chloride Carbon Dioxide Anion Gap BUN Creatinine Est Cr Clr Drug Dosing Est GFR ( Amer) Est GFR (Non-Af Amer) BUN/Creatinine Ratio Glucose POC Glucose Lactate 2.7 H* Calcium Phosphorus Magnesium Total Bilirubin AST ALT Alkaline Phosphatase Troponin I Total Protein Albumin Globulin Albumin/Globulin Ratio Lipase Urine Color Urine Appearance Urine pH Ur Specific [place] Urine Protein Urine Glucose (UA) Urine Ketones Urine Blood Urine Nitrite Urine Bilirubin Urine Urobilinogen Ur Leukocyte Esterase Nasal Screen MRSA (PCR) Negative Blood Type Blood Type Recheck Antibody Screen Crossmatch 03/16/19 03/16/19 03/17/19 23:42 23:45 03:21 WBC Cancelled RBC Cancelled Hgb Cancelled Hct Cancelled MCV Cancelled MCH Cancelled MCHC Cancelled RDW Std Deviation Cancelled RDW Coeff of Omero Cancelled Plt Count Cancelled MPV Cancelled Immature Gran % (Auto) Cancelled Neut % (Auto) Cancelled Lymph % (Auto) Cancelled Clay % (Auto) Cancelled Eos % (Auto) Cancelled Baso % (Auto) Cancelled Immature Gran # (Auto) Cancelled Neut # (Auto) Cancelled Lymph # (Auto) Cancelled [place] # (Auto) Cancelled Eos # (Auto) Cancelled Baso # (Auto) Cancelled Absolute Nucleated RBC Cancelled Nucleated RBC % (auto) Cancelled Neutrophils % (Manual) Cancelled Band Neutrophils % Cancelled Lymphocytes % (Manual) Cancelled Prolymphocyte % Cancelled Reactive Lymphs % (Man) Cancelled Monocytes % (Manual) Cancelled Eosinophils % (Manual) Cancelled Basophils % (Manual) Cancelled Metamyelocytes % (Man) Cancelled Myelocytes % (Man) Cancelled Promyelocytes % (Man) Cancelled Blast Cells % (Manual) Cancelled Plasma Cell % (Manual) Cancelled Other Cells % Cancelled Nucleated RBC % Cancelled Neutrophils # (Manual) Cancelled Band Neutrophils # Cancelled Total Absolute Neuts Cancelled Lymphocytes # (Manual) Cancelled Prolymphocyte # Cancelled Reactive Lymphs # Cancelled Total Abs Lymphocytes Cancelled Monocytes # (Manual) Cancelled Eosinophils # (Manual) Cancelled Basophils # (Manual) Cancelled Metamyelocytes # (Man) Cancelled Myelocytes # (Manual) Cancelled Promyelocytes # (Man) Cancelled Blast Cells # (Man) Cancelled Plasma Cell # (Manual) Cancelled Other Cells # Cancelled Nucleated RBCs # (Man) Cancelled Hypersegmented Neuts Cancelled Hyposegmented Neuts Cancelled Hypogranular Neuts Cancelled Large Granular Lymphs Cancelled # Lrg Granular Lymphs Cancelled Hairy Cells Cancelled Smudge Cells Cancelled Toxic Granulation Cancelled Toxic Vacuolation Cancelled Dohle Bodies Cancelled Harmony Rods Cancelled Platelet Estimate Cancelled Hypogranular Platelets Cancelled Clumped Platelets Cancelled Giant Platelets Cancelled Platelet Satelliting Cancelled RBC Morphology Cancelled Polychromasia Cancelled Hypochromasia Cancelled Poikilocytosis Cancelled Basophilic Stippling Cancelled Anisocytosis Cancelled Microcytosis Cancelled Macrocytosis Cancelled Spherocytes Cancelled Pappenheimer Bodies Cancelled Sickle Cells Cancelled Target Cells Cancelled Tear Drop Cells Cancelled Ovalocytes Cancelled Stomatocytes Cancelled [place] Bodies Cancelled Echinocytes Cancelled Acanthocytes (Spur) Cancelled Rouleaux Cancelled RBC Agglutinates Cancelled Schistocytes Cancelled RBC Morph Comment Cancelled Sezary Cell Cancelled PT INR APTT PTT Ratio Sodium Potassium Chloride Carbon Dioxide Anion Gap BUN Creatinine Est Cr Clr Drug Dosing Est GFR ( Amer) Est GFR (Non-Af Amer) BUN/Creatinine Ratio Glucose POC Glucose 149 H Lactate Calcium Phosphorus Magnesium Total Bilirubin AST ALT Alkaline Phosphatase Troponin I Total Protein Albumin Globulin Albumin/Globulin Ratio Lipase Urine Color Yellow Urine Appearance Clear Urine pH 5.0 Ur Specific [place] > 1.045 H Urine Protein Negative Urine Glucose (UA) Negative Urine Ketones Negative Urine Blood Negative Urine Nitrite Negative Urine Bilirubin Negative Urine Urobilinogen Negative Ur Leukocyte Esterase Negative Nasal Screen MRSA (PCR) Blood Type Blood Type Recheck Antibody Screen Crossmatch 03/17/19 03/17/19 03/17/19 03:21 03:21 04:10 WBC 21.04 H RBC 4.03 L Hgb 7.8 L Hct 27.3 L MCV 67.7 L MCH 19.4 L MCHC 28.6 L RDW Std Deviation 59.5 H RDW Coeff of Omero 24.0 H Plt Count 267 MPV 9.5 Immature Gran % (Auto) 0.4 Neut % (Auto) 85.6 Lymph % (Auto) 7.3 Clay % (Auto) 6.6 Eos % (Auto) 0.0 Baso % (Auto) 0.1 Immature Gran # (Auto) 0.08 H Neut # (Auto) 18.01 H Lymph # (Auto) 1.54 Clay # (Auto) 1.39 H Eos # (Auto) 0.00 Baso # (Auto) 0.02 Absolute Nucleated RBC Nucleated RBC % (auto) Neutrophils % (Manual) Band Neutrophils % Lymphocytes % (Manual) Prolymphocyte % Reactive Lymphs % (Man) Monocytes % (Manual) Eosinophils % (Manual) Basophils % (Manual) Metamyelocytes % (Man) Myelocytes % (Man) Promyelocytes % (Man) Blast Cells % (Manual) Plasma Cell % (Manual) Other Cells % Nucleated RBC % Neutrophils # (Manual) Band Neutrophils # Total Absolute Neuts Lymphocytes # (Manual) Prolymphocyte # Reactive Lymphs # Total Abs Lymphocytes Monocytes # (Manual) Eosinophils # (Manual) Basophils # (Manual) Metamyelocytes # (Man) Myelocytes # (Manual) Promyelocytes # (Man) Blast Cells # (Man) Plasma Cell # (Manual) Other Cells # Nucleated RBCs # (Man) Hypersegmented Neuts Hyposegmented Neuts Hypogranular Neuts Large Granular Lymphs # Lrg Granular Lymphs Hairy Cells Smudge Cells Toxic Granulation Toxic Vacuolation Dohle Bodies Harmony Rods Platelet Estimate Hypogranular Platelets Clumped Platelets Giant Platelets Platelet Satelliting RBC Morphology Polychromasia Hypochromasia Present Poikilocytosis Present Basophilic Stippling Anisocytosis Present Microcytosis Present Macrocytosis Spherocytes Pappenheimer Bodies Sickle Cells Target Cells Tear Drop Cells Ovalocytes Stomatocytes [place] Bodies Echinocytes Acanthocytes (Spur) Rouleaux RBC Agglutinates Schistocytes RBC Morph Comment Sezary Cell PT INR APTT PTT Ratio Sodium 136 Potassium 3.9 Chloride 105 Carbon Dioxide 26 Anion Gap 5.0 BUN 8 Creatinine 0.89 Est Cr Clr Drug Dosing 82.5 Est GFR ( Amer) 85.8 Est GFR (Non-Af Amer) 74.0 BUN/Creatinine Ratio 8.6 L Glucose 158 H POC Glucose Lactate 1.8 Calcium 8.5 Phosphorus 2.7 Magnesium 2.0 Total Bilirubin AST ALT Alkaline Phosphatase Troponin I Total Protein Albumin Globulin Albumin/Globulin Ratio Lipase Urine Color Urine Appearance Urine pH Ur Specific [place] Urine Protein Urine Glucose (UA) Urine Ketones Urine Blood Urine Nitrite Urine Bilirubin Urine Urobilinogen Ur Leukocyte Esterase Nasal Screen MRSA (PCR) Blood Type Blood Type Recheck Antibody Screen Crossmatch 03/17/19 06:10 WBC RBC Hgb Hct MCV MCH MCHC RDW Std Deviation RDW Coeff of Omero Plt Count MPV Immature Gran % (Auto) Neut % (Auto) Lymph % (Auto) Clay % (Auto) Eos % (Auto) Baso % (Auto) Immature Gran # (Auto) Neut # (Auto) Lymph # (Auto) [place] # (Auto) Eos # (Auto) Baso # (Auto) Absolute Nucleated RBC Nucleated RBC % (auto) Neutrophils % (Manual) Band Neutrophils % Lymphocytes % (Manual) Prolymphocyte % Reactive Lymphs % (Man) Monocytes % (Manual) Eosinophils % (Manual) Basophils % (Manual) Metamyelocytes % (Man) Myelocytes % (Man) Promyelocytes % (Man) Blast Cells % (Manual) Plasma Cell % (Manual) Other Cells % Nucleated RBC % Neutrophils # (Manual) Band Neutrophils # Total Absolute Neuts Lymphocytes # (Manual) Prolymphocyte # Reactive Lymphs # Total Abs Lymphocytes Monocytes # (Manual) Eosinophils # (Manual) Basophils # (Manual) Metamyelocytes # (Man) Myelocytes # (Manual) Promyelocytes # (Man) Blast Cells # (Man) Plasma Cell # (Manual) Other Cells # Nucleated RBCs # (Man) Hypersegmented Neuts Hyposegmented Neuts Hypogranular Neuts Large Granular Lymphs # Lrg Granular Lymphs Hairy Cells Smudge Cells Toxic Granulation Toxic Vacuolation Dohle Bodies Harmony Rods Platelet Estimate Hypogranular Platelets Clumped Platelets Giant Platelets Platelet Satelliting RBC Morphology Polychromasia Hypochromasia Poikilocytosis Basophilic Stippling Anisocytosis Microcytosis Macrocytosis Spherocytes Pappenheimer Bodies Sickle Cells Target Cells Tear Drop Cells Ovalocytes Stomatocytes [place] Bodies Echinocytes Acanthocytes (Spur) Rouleaux RBC Agglutinates Schistocytes RBC Morph Comment Sezary Cell PT INR APTT PTT Ratio Sodium Potassium Chloride Carbon Dioxide Anion Gap BUN Creatinine Est Cr Clr Drug Dosing Est GFR ( Amer) Est GFR (Non-Af Amer) BUN/Creatinine Ratio Glucose POC Glucose 139 H Lactate Calcium Phosphorus Magnesium Total Bilirubin AST ALT Alkaline Phosphatase Troponin I Total Protein Albumin Globulin Albumin/Globulin Ratio Lipase Urine Color Urine Appearance Urine pH Ur Specific [place] Urine Protein Urine Glucose (UA) Urine Ketones Urine Blood Urine Nitrite Urine Bilirubin Urine Urobilinogen Ur Leukocyte Esterase Nasal Screen MRSA (PCR) Blood Type Blood Type Recheck Antibody Screen Crossmatch
[2019-03-17] MEDS: metroNIDAZOLE 500 MG/100 ML BAG IV SCH ×2 (08:20→15:58)
[2019-03-17] MEDS ORDERED: METOCLOPRAMIDE HCL INJ 5 MG/ML 2 ML VIAL IV ONE (09:42)
--- NOTE | 2019-03-17 10:36 | Gastrointestinal Consultation ---
Date of Consultation March 17, 2019 Assessment & Plan (1) Anemia: Differentials considered include IBD, colon cancer, upper GI bleeding. Plan: Clear liquids p.o. today Antiemetics EGD tomorrow as well as colonoscopy (if able to hold down p.o. liquid prep) by Dr. Ellis. Present on Admission?: Yes (2) Colitis: Present on Admission?: Yes Supervising Physician Co-Signing Physician Notes I performed a history and physical examination of the patient, including specifically on physical exam - soft, nontender abdomen. I have discussed the patient's management with Naomy. Please refer to the nurse practitioner's note for the documented findings and plan of care. 53 years old female patient on Xarelto for Hx of PE, admitted with anemia, seems to be chronic, no rectal bleeding. CT scan with concern for sigmoid colitis. DDx: r/o PUD, Ischemic colitis, AVM and malignancy. Plan: EGD and colonoscopy tomorrow after bowel prep. Check Echocardiogram. History of Present Illness Reason for Consultation: Colitis, anemia. ?inflam bowel disease. ?GI bleed Requesting Physician: Tessy Sahni Attending Physician: Maldonado Mae History of Present Illness Ms. Liliana Langley is a 53-year-old female patient of Dr. Weston with a history of PE (provoked 3 years ago) on rivaroxaban (Xarelto), most recent dose on Saturday. GI is consulted for anemia, question colitis The patient tells me that about a week ago she noticed that her bowel movements consisted of clear mucus a small amount and she did not have any abdominal pain or cramping with those bowel movements. However, as the week progressed she began to have diffuse abdominal discomfort. . She has not passed flatus since . On Saturday she noticed a distended painful abdomen and yesterday vomited several times. She denies any gross GI bleeding. She has felt tired weak and had exertional shortness of breath for at least a few months but cannot recall exactly when this started. She is never previously had endoscopy. Rectal in the ICU with occult positive stool. She denies any NSAID use. On arrival, rivaroxaban was held, CT with mild sigmoid wall thickening and mild gallbladder wall thickening. She has microcytic anemia Hb 6.1, MCV 19 on arrival, then received 2 units of red blood cells and hemoglobin this morning is 78. She also has marked leukocytosis at 21. She has not passed a BM. Abdomen is distended though not taunt and she remains with a diffuse painful abdomen though she is awake, alert, oriented and hemodynamically stable with BP: 122/68, HR 87, POx 93% with O2 by NC at 2L/min. Allergies Allergy/AdvReac Type Severity Reaction Status Date / Time Penicillins Allergy Severe HIVES, Verified 03/16/19 11:21 SOB, FACIAL SWELLING benzonatate AdvReac Intermediate rash Verified 03/16/19 11:21 [From Dior Young] Home Medications Home Medications Medication Instructions Recorded Confirmed Type rivaroxaban [Xarelto] 20 mg PO PM 03/16/19 03/16/19 History Patient History Medical History Lower leg fracture (Resolved) s/p pins & screws Pulmonary embolism (Chronic) Surgical History History of surgery on extremity Hx of appendectomy S/P lobectomy of lung Pt reports LLL resected s/p PE Family History Mother Factor V Leiden Social History Preferred Language: [place] Communication Ability: Effective Esthetic Dermatologist Required: No Beliefs That Will Affect Care: None Current Living Situation: Spouse Other Information That Helps Us Care for You: No Feels Safe at Home: Yes Safety Concerns: Feels Safe At This Time Smoking Status: Never smoker Hx Alcohol Use: No Hx Substance Use: No Review of Systems Review of Systems: ROS: Gen: Generalized weakness No fevers or weight loss Eyes: No eye redness, or pain, no recent vision changes Resp: No SOB, no cough Cardio: No palpitations/irregular beats, no chest pain GI: + abdominal pain and distention, + no nausea/vomiting : Denies pain on urination Skin: No jaundice, itching or new rashes Physical Exam Constitutional: WD/WN, vitals as above + ill appearing Eyes: PERRL, conjunctivae normal, anicteric sclerae ENMT: external ear and nose normal, oropharynx normal Neck: trachea midline, no thyromegaly Respiratory: normal respiratory effort, lungs clear to auscultation Cardiovascular: RRR, no murmur, no edema Gastrointestinal (Abdomen): normal bowel sounds, soft, nontender, no hepatosplenomegaly Musculoskeletal: no cyanosis or clubbing, extremities motor strength 5/5 Skin: pale Neurologic: PERRL, EOMI, accommodation nl, no face palsy, no dysarthria Psychiatric: A+Ox3, euthymic affect Lymphatic: no cervical or axillary lymphadenopathy Results & Data Vital Signs (Past 12 Hours) Vital Signs Temp Pulse BP Pulse Ox 03/17/19 06:30 87 93 03/17/19 06:13 91 H 122/68 91 03/17/19 06:07 110 H 94 03/17/19 05:40 37.1 C 88 100 03/17/19 05:30 84 100 03/17/19 05:00 90 133/64 100 03/17/19 04:30 91 H 100 03/17/19 04:01 98 H 133/88 100 03/17/19 04:00 103 H 99 03/17/19 03:30 89 97 03/17/19 03:00 100 H 133/67 96 03/17/19 02:30 95 H 100 03/17/19 02:00 94 H 128/66 99 03/17/19 01:30 91 H 98 03/17/19 01:00 90 131/67 96 03/17/19 00:30 88 97 03/17/19 00:20 89 98 03/17/19 00:10 36.9 C 90 136/71 96 03/17/19 00:00 92 H 136/71 94 03/16/19 23:50 95 H 93 03/16/19 23:40 103 H 88 L 03/16/19 22:50 107 H 96 03/16/19 22:40 99 H 90 Laboratory Results WBC 21, hemoglobin 7.8, hematocrit 27, platelets 267, sodium 136, potassium 3.9, BUN 8, creatinine 0.8, glucose [address] abd/pelvis with IV contrast: 1. Mild wall thickening about the mid to distal sigmoid colon may be secondary to partial distention versus a nonspecific colitis. Correlate clinically. Additionally, there is trace free pelvic fluid which may be on a reactive basis. 2. Suggestion of mild gallbladder wall thickening. Correlate clinically. 3. No bowel obstruction, pneumatosis or pneumoperitoneum. 4. Small hiatal hernia. 5. Additional findings as above.
[2019-03-17] MEDS ORDERED: LAVAGE SOLUTION 4000ML PO SCH (11:30)
[2019-03-17] MEDS: MoRPHine SULFATE 4 MG/ML 1 ML CARP\\VIAL IV PRN ×2 (15:58→20:05)
--- NOTE | 2019-03-17 20:01 | Hospitalist Progress Note ---
Date of Service March 17, 2019 Assessment & Plan (1) Colitis: Question of -- as seen on CT. Abdominal pain on exam is in same location of colitis on CT. Remains on cipro/flagyl. Concern is for IBD in light of what appears to be a chronic iron deficiency anemia. Plan - Cipro/flagyl. IVF. Pain meds. EGD/colonoscopy tomorrow; prep tonight. NPO. Check a c diff to be complete but low likelihood of this. (2) Abdominal pain: see "colitis" as above (3) Microcytosis: check iron studies in AM replace Fe as needed (4) Anemia: microcytic EGD/colonoscopy tomorrow to r/o source of occult GI blood loss check iron studies, b12, folate in am (5) Aphthous ulcer of tongue: in light of clinical history/exam/etc this would be concerning for IBD (6) Dyspnea: o2 sats during my visit were low 90s in RA will check a 2-view cxr to start if normal or noncontributory then consider echo, CT chest, outpatient PFTs, etc could have pulmonary HTN related to past PEs (7) Pulmonary emboli: history of - has been on xarelto of late. had significant PE burden in March 2015 at time of diagnosis with possible infarction as well. xarelto on hold due to presumed GI blood loss and need for GI endoscopies (8) DVT prophylaxis: SCDs for now continue IV fluids Subjective patient with lower abdominal discomfort. was trying to drink her colonoscopy prep for tomorrow's c-scope. burping but no nausea or emesis. has not noted any obvious melena or blood at home. has had a "strawberry tongue" since childhood. Review of Systems Constitutional: + weight gain; no weight loss Respiratory: + cough, + dyspnea and + dyspnea on exertion symptoms present for several months or longer Cardiovascular: no chest pain Gastrointestinal: + abdominal pain and + nausea; no vomiting and no blood in stools Physical Exam Constitutional: + obese; no acute distress and no altered mental status ENMT: Mouth: + tongue abnormality (aphthous ulcers; no thrush) Respiratory: normal respiratory effort, lungs clear to auscultation Auscultation: + diminished lung sounds (bases) Cardiovascular: Rate/Rhythm: regular rate and regular rhythm Heart Sounds: normal S1 and normal S2; no murmur Vessels: posterior tibial pulses present and dorsalis pedis pulses present; no JVD Gastrointestinal (Abdomen): Inspection/Auscultation: + abdomen distended and normal bowel sounds Percussion/Palpation: + abdomen tender (LLQ); no hepatosplenomegaly Skin: + pallor Psychiatric: A+Ox3, euthymic affect Results & Data Vital Signs (Past 12 Hours) Vital Signs Temp Pulse Resp BP Pulse Ox 03/17/19 18:01 37.4 C 84 135/71 92 03/17/19 17:01 81 128/69 97 03/17/19 16:20 87 95 03/17/19 16:10 87 97 03/17/19 16:00 37.4 C 82 138/68 100 03/17/19 15:46 89 03/17/19 15:01 82 117/67 100 03/17/19 14:00 82 18 128/62 100 03/17/19 13:00 86 20 114/69 100 03/17/19 12:00 37.3 C 94 H 20 129/64 100 03/17/19 11:00 88 125/76 100 03/17/19 10:00 80 134/68 100 03/17/19 09:00 94 H 96/83 L 98 03/17/19 08:00 37.6 C H 85 118/73 99 Laboratory Results Laboratory Results - last 24 hr 03/16/19 03/16/19 03/17/19 23:42 23:45 03:21 WBC Cancelled RBC Cancelled Hgb Cancelled Hct Cancelled MCV Cancelled MCH Cancelled MCHC Cancelled RDW Std Deviation Cancelled RDW Coeff of Omero Cancelled Plt Count Cancelled MPV Cancelled Immature Gran % (Auto) Cancelled Neut % (Auto) Cancelled Lymph % (Auto) Cancelled [place] % (Auto) Cancelled Eos % (Auto) Cancelled Baso % (Auto) Cancelled Immature Gran # (Auto) Cancelled Neut # (Auto) Cancelled Lymph # (Auto) Cancelled [place] # (Auto) Cancelled Eos # (Auto) Cancelled Baso # (Auto) Cancelled Absolute Nucleated RBC Cancelled Nucleated RBC % (auto) Cancelled Neutrophils % (Manual) Cancelled Band Neutrophils % Cancelled Lymphocytes % (Manual) Cancelled Prolymphocyte % Cancelled Reactive Lymphs % (Man) Cancelled Monocytes % (Manual) Cancelled Eosinophils % (Manual) Cancelled Basophils % (Manual) Cancelled Metamyelocytes % (Man) Cancelled Myelocytes % (Man) Cancelled Promyelocytes % (Man) Cancelled Blast Cells % (Manual) Cancelled Plasma Cell % (Manual) Cancelled Other Cells % Cancelled Nucleated RBC % Cancelled Neutrophils # (Manual) Cancelled Band Neutrophils # Cancelled Total Absolute Neuts Cancelled Lymphocytes # (Manual) Cancelled Prolymphocyte # Cancelled Reactive Lymphs # Cancelled Total Abs Lymphocytes Cancelled Monocytes # (Manual) Cancelled Eosinophils # (Manual) Cancelled Basophils # (Manual) Cancelled Metamyelocytes # (Man) Cancelled Myelocytes # (Manual) Cancelled Promyelocytes # (Man) Cancelled Blast Cells # (Man) Cancelled Plasma Cell # (Manual) Cancelled Other Cells # Cancelled Nucleated RBCs # (Man) Cancelled Hypersegmented Neuts Cancelled Hyposegmented Neuts Cancelled Hypogranular Neuts Cancelled Large Granular Lymphs Cancelled # Lrg Granular Lymphs Cancelled Hairy Cells Cancelled Smudge Cells Cancelled Toxic Granulation Cancelled Toxic Vacuolation Cancelled Dohle Bodies Cancelled Harmony Rods Cancelled Platelet Estimate Cancelled Hypogranular Platelets Cancelled Clumped Platelets Cancelled Giant Platelets Cancelled Platelet Satelliting Cancelled RBC Morphology Cancelled Polychromasia Cancelled Hypochromasia Cancelled Poikilocytosis Cancelled Basophilic Stippling Cancelled Anisocytosis Cancelled Microcytosis Cancelled Macrocytosis Cancelled Spherocytes Cancelled Pappenheimer Bodies Cancelled Sickle Cells Cancelled Target Cells Cancelled Tear Drop Cells Cancelled Ovalocytes Cancelled Stomatocytes Cancelled [place] Bodies Cancelled Echinocytes Cancelled Acanthocytes (Spur) Cancelled Rouleaux Cancelled RBC Agglutinates Cancelled Schistocytes Cancelled RBC Morph Comment Cancelled Sezary Cell Cancelled Sodium Potassium Chloride Carbon Dioxide Anion Gap BUN Creatinine Est Cr Clr Drug Dosing Est GFR ( Amer) Est GFR (Non-Af Amer) BUN/Creatinine Ratio Glucose POC Glucose 149 H Lactate Calcium Phosphorus Magnesium Urine Color Yellow Urine Appearance Clear Urine pH 5.0 Ur Specific [place] > 1.045 H Urine Protein Negative Urine Glucose (UA) Negative Urine Ketones Negative Urine Blood Negative Urine Nitrite Negative Urine Bilirubin Negative Urine Urobilinogen Negative Ur Leukocyte Esterase Negative 07/11/0403/17/19 03/17/19 03:21 03:21 04:10 WBC 21.04 H RBC 4.03 L Hgb 7.8 L Hct 27.3 L MCV 67.7 L MCH 19.4 L MCHC 28.6 L RDW Std Deviation 59.5 H RDW Coeff of Omero 24.0 H Plt Count 267 MPV 9.5 Immature Gran % (Auto) 0.4 Neut % (Auto) 85.6 Lymph % (Auto) 7.3 [place] % (Auto) 6.6 Eos % (Auto) 0.0 Baso % (Auto) 0.1 Immature Gran # (Auto) 0.08 H Neut # (Auto) 18.01 H Lymph # (Auto) 1.54 [place] # (Auto) 1.39 H Eos # (Auto) 0.00 Baso # (Auto) 0.02 Absolute Nucleated RBC Nucleated RBC % (auto) Neutrophils % (Manual) Band Neutrophils % Lymphocytes % (Manual) Prolymphocyte % Reactive Lymphs % (Man) Monocytes % (Manual) Eosinophils % (Manual) Basophils % (Manual) Metamyelocytes % (Man) Myelocytes % (Man) Promyelocytes % (Man) Blast Cells % (Manual) Plasma Cell % (Manual) Other Cells % Nucleated RBC % Neutrophils # (Manual) Band Neutrophils # Total Absolute Neuts Lymphocytes # (Manual) Prolymphocyte # Reactive Lymphs # Total Abs Lymphocytes Monocytes # (Manual) Eosinophils # (Manual) Basophils # (Manual) Metamyelocytes # (Man) Myelocytes # (Manual) Promyelocytes # (Man) Blast Cells # (Man) Plasma Cell # (Manual) Other Cells # Nucleated RBCs # (Man) Hypersegmented Neuts Hyposegmented Neuts Hypogranular Neuts Large Granular Lymphs # Lrg Granular Lymphs Hairy Cells Smudge Cells Toxic Granulation Toxic Vacuolation Dohle Bodies Harmony Rods Platelet Estimate Hypogranular Platelets Clumped Platelets Giant Platelets Platelet Satelliting RBC Morphology Polychromasia Hypochromasia Present Poikilocytosis Present Basophilic Stippling Anisocytosis Present Microcytosis Present Macrocytosis Spherocytes Pappenheimer Bodies Sickle Cells Target Cells Tear Drop Cells Ovalocytes Stomatocytes [place] Bodies Echinocytes Acanthocytes (Spur) Rouleaux RBC Agglutinates Schistocytes RBC Morph Comment Sezary Cell Sodium 136 Potassium 3.9 Chloride 105 Carbon Dioxide 26 Anion Gap 5.0 BUN 8 Creatinine 0.89 Est Cr Clr Drug Dosing 82.5 Est GFR ( Amer) 85.8 Est GFR (Non-Af Amer) 74.0 BUN/Creatinine Ratio 8.6 L Glucose 158 H POC Glucose Lactate 1.8 Calcium 8.5 Phosphorus 2.7 Magnesium 2.0 Urine Color Urine Appearance Urine pH Ur Specific [place] Urine Protein Urine Glucose (UA) Urine Ketones Urine Blood Urine Nitrite Urine Bilirubin Urine Urobilinogen Ur Leukocyte Esterase 03/17/19 03/17/19 03/17/19 06:10 11:52 18:31 WBC RBC Hgb Hct MCV MCH MCHC RDW Std Deviation RDW Coeff of Omero Plt Count MPV Immature Gran % (Auto) Neut % (Auto) Lymph % (Auto) [place] % (Auto) Eos % (Auto) Baso % (Auto) Immature Gran # (Auto) Neut # (Auto) Lymph # (Auto) [place] # (Auto) Eos # (Auto) Baso # (Auto) Absolute Nucleated RBC Nucleated RBC % (auto) Neutrophils % (Manual) Band Neutrophils % Lymphocytes % (Manual) Prolymphocyte % Reactive Lymphs % (Man) Monocytes % (Manual) Eosinophils % (Manual) Basophils % (Manual) Metamyelocytes % (Man) Myelocytes % (Man) Promyelocytes % (Man) Blast Cells % (Manual) Plasma Cell % (Manual) Other Cells % Nucleated RBC % Neutrophils # (Manual) Band Neutrophils # Total Absolute Neuts Lymphocytes # (Manual) Prolymphocyte # Reactive Lymphs # Total Abs Lymphocytes Monocytes # (Manual) Eosinophils # (Manual) Basophils # (Manual) Metamyelocytes # (Man) Myelocytes # (Manual) Promyelocytes # (Man) Blast Cells # (Man) Plasma Cell # (Manual) Other Cells # Nucleated RBCs # (Man) Hypersegmented Neuts Hyposegmented Neuts Hypogranular Neuts Large Granular Lymphs # Lrg Granular Lymphs Hairy Cells Smudge Cells Toxic Granulation Toxic Vacuolation Dohle Bodies Harmony Rods Platelet Estimate Hypogranular Platelets Clumped Platelets Giant Platelets Platelet Satelliting RBC Morphology Polychromasia Hypochromasia Poikilocytosis Basophilic Stippling Anisocytosis Microcytosis Macrocytosis Spherocytes Pappenheimer Bodies Sickle Cells Target Cells Tear Drop Cells Ovalocytes Stomatocytes [place] Bodies Echinocytes Acanthocytes (Spur) Rouleaux RBC Agglutinates Schistocytes RBC Morph Comment Sezary Cell Sodium Potassium Chloride Carbon Dioxide Anion Gap BUN Creatinine Est Cr Clr Drug Dosing Est GFR ( Amer) Est GFR (Non-Af Amer) BUN/Creatinine Ratio Glucose POC Glucose 139 H 150 H 124 H Lactate Calcium Phosphorus Magnesium Urine Color Urine Appearance Urine pH Ur Specific [place] Urine Protein Urine Glucose (UA) Urine Ketones Urine Blood Urine Nitrite Urine Bilirubin Urine Urobilinogen Ur Leukocyte Esterase PG Care Time/CCT Total # of Minutes Spent Total Time Spent with Patient: Total time spent is greater than 50% in coordination of care (as documented) at patient's floor/unit and/or counseling patient: (1) Abdominal pain Abdominal location: left lower quadrant Qualified Code(s): R10.32 - Left lower quadrant pain (2) Pulmonary emboli Pulmonary embolism type: unspecified Chronicity: unspecified Acute cor pulmonale presence: without acute cor pulmonale Qualified Code(s): I26.99 - Other pulmonary embolism without acute cor pulmonale (3) Dyspnea Dyspnea type: dyspnea on exertion Qualified Code(s): R06.09 - Other forms of dyspnea (4) Anemia Anemia type: unspecified type Qualified Code(s): D64.9 - Anemia, unspecified
--- NOTE | 2019-03-17 21:01 | XRay Report ---
XR chest 1V portable CLINICAL HISTORY: cough, sob history COMPARISON STUDY: 04/05/2018 FINDINGS: Interval increase in cardiac size as well as prominence of the pulmonary vasculature. Small bilateral pleural effusions. IMPRESSION: Congestive heart failure The above report was generated using voice recognition software. It may contain grammatical, syntax or spelling errors. Electronically signed by: Alex Torres M.D. 03/17/2019 9:00 PM
[2019-03-18] MEDS: PANTOprazole 40 MG in DEXTROSE 5% 100 ML IV SCH ×2 (00:02→05:28)
[2019-03-18] MEDS: metroNIDAZOLE 500 MG/100 ML BAG IV SCH ×3 (00:03→15:45)
[2019-03-18] MEDS: MoRPHine SULFATE 4 MG/ML 1 ML CARP\\VIAL IV PRN ×3 (00:03→20:45)
[2019-03-18] MEDS: CIPROFLOXACIN 400 MG/200 ML BAG IV SCH ×2 (04:19→16:20)
[2019-03-18] MEDS: D5NSS + 20MEQ KCL 20 MEQ/1,000 ML BAG IV SCH ×3 (04:19→21:10)
[2019-03-18 05:48] LABS: Hematocrit (blood only) 26.5 % (37-47); Hemoglobin 7.5 g/dL (12.0-16.0); Mean Corpuscular Hgb Conc 28.3 g/dL (32-36); Mean Corpuscular Volume 68.8 fL (80-100); Mean Platelet Volume 9.4 fL (7.4-10.4); Platelet Count 244 K/uL (130-400); RDW Coefficient of Variation 24.7 % (11.5-14.5); RDW Standard Deviation 62.1 fL (36.4-46.3); Red Blood Count 3.85 M/uL (4.2-5.4); White Blood Count 15.46 K/uL (4.8-10.8)
[2019-03-18 05:57] LABS: Anisocytosis Present; Basophils # (auto) 0.01 K/uL (0-0.2); Basophils % (auto) 0.1 %; Eosinophils # (auto) 0.03 K/uL (0-0.5); Eosinophils % (auto) 0.2 %; Hypochromasia Present; Immature Granulocytes # (auto) 0.05 K/uL (0.00-0.02); Immature Granulocytes % (auto) 0.3 %; Lymphocytes # (auto) 1.86 K/uL (1.2-3.4); Microcytosis Present; Monocytes % (auto) 8.4 %; Neutrophils # (auto) 12.21 K/uL (1.4-6.5)
[2019-03-18 05:58] LABS: BUN Creatinine Ratio 9.3 (10-20); Calcium 8.4 mg/dl (8.5-10.1); Creatinine Clr Calc Pharmacy 97.9 ml/min; Est GFR (African American) 105.5; Potassium 3.6 mmol/L (3.5-5.1)
[2019-03-18 06:02] LABS: Ferritin 28.5 ng/ml (8-388); Phosphorus 2.4 mg/dl (2.5-4.9)
[2019-03-18 07:59] LABS: Folate (Folic Acid) 12.52 ng/ml (>5.38)
--- NOTE | 2019-03-18 07:59 | Critical Care Progress Note ---
Date of Service March 18, 2019 Assessment & Plan (1) Abdominal pain: Neuro- awake alert. pain control CV- HD stable. lactic acid improved Pulmonary- sat well on RA. some hypoxia yesterday worse after morphine. CXR will some pulm edema. incentive spirometry ID- abx for colitis cipro/metronidazole(pcn allergy) but unclear she has true infection. Renal- cr ok. GI- abdominal pain nonspecific colitis on CT. I am concerned about inflammatory bowel disease. it is not clear to me that she has acute GI bleed. I suspect her anemia is more chronic. for EGD colonoscopy today Heme- leukocytosis. anemia with low MCV likely iron deficiency. needs colonoscopy and possibly EGD for source. hold anticoagulation for now with possible bleeding. history of pulmonary embolism. has been on anticoagulation for 3 years. unsure she needs to continue as she had a provoked PE. per pt has had hypercoagulable workup in the past that was negative Endocrine- keep blood sugars <180 Dispo- ok to transfer out of the ICU (2) Colitis: (3) Anemia: Subjective no events overnight abdominal pain about the same Physical Exam Physical Exam: Constitutional: Comfortable NAD HEENT: normocephalic atraumatic. MMM. CV: RRR nl s1,s2 no murmurs rubs or gallops Lungs: clear to auscultation bilaterally. no accessory muscle use Abd: soft diffusely tender nondistended. + bowel sounds Ext: no edema. no cyanosis, no clubbing Skin: warm dry. no rash Neuro: alert and oriented. moving all extremities Psych: slightly anxious Results & Data Vital Signs (Past 12 Hours) Vital Signs Temp Pulse Resp BP Pulse Ox 03/18/19 06:14 82 134/66 93 03/18/19 05:00 77 18 121/69 98 03/18/19 04:00 81 20 123/73 100 03/18/19 03:00 81 20 129/66 100 03/18/19 02:01 102 H 20 122/82 93 03/18/19 01:00 84 116/62 100 03/18/19 00:00 37.0 C 74 18 132/75 100 03/17/19 23:00 92 H 20 145/78 H 100 03/17/19 22:00 84 20 130/66 99 03/17/19 21:00 80 20 138/74 100 03/17/19 20:00 36.8 C 84 129/67 92 (1) Anemia Anemia type: unspecified type Qualified Code(s): D64.9 - Anemia, unspecified (2) Abdominal pain Abdominal location: left lower quadrant Qualified Code(s): R10.32 - Left lower quadrant pain
[2019-03-18] MEDS ORDERED: LIDOCAINE HCL VISCOUS SOLN 2% 15 ML UDC TOP ONE (09:00)
--- NOTE | 2019-03-18 10:14 | Gastroenterology Progress Note ---
Date of Service March 18, 2019 Assessment & Plan (1) Anemia: Differentials considered include IBD, colon cancer, upper GI bleeding. Plan: NPO, enema prior to endoscopy. BID PPI. EGD and colonoscopy Dr. Ellis, today. (2) Colitis: Supervising Physician Co-Signing Physician Notes I performed a history and physical examination of the patient, including specifically on physical exam - soft, nontender abdomen. I have discussed the patient's management with Naomy. Please refer to the nurse practitioner's note for the documented findings and plan of care. EGD and colonoscopy today. Subjective Ms. Liliana Langley is a 53 yr old female pt who presented to the ED Saturday for constipation x 5 days, abdominal distention, N/V x 24 hrs. Since arrival, leukocytosis, anemia (Hb 6 + 2units-> 7.5), abdominal distention continues. CT mild wall thickening about the mid to distal sigmoid colon. Drank about 1800ml of Golytely through he day yesterday - > 3 loose/liquid brown BMs. On cipro Flaygl and WBC decreasing 20 ->13 Review of Systems Review of Systems: ROS: Gen: Generalized weakness No fevers or weight loss Eyes: No eye redness, or pain, no recent vision changes Resp: No SOB, no cough Cardio: No palpitations/irregular beats, no chest pain GI: + abdominal pain and distention, + no nausea; no vomiting since prior to admission. + Constipation prior to arrival, diarrhea only with prep. : Denies pain on urination Skin: No jaundice, itching or new rashes Physical Exam Constitutional: WD/WN, vitals as above + ill appearing Eyes: PERRL, conjunctivae normal, anicteric sclerae ENMT: external ear and nose normal, oropharynx normal Neck: trachea midline, no thyromegaly Respiratory: normal respiratory effort, lungs clear to auscultation Cardiovascular: RRR, no murmur, no edema Gastrointestinal (Abdomen): normal bowel sounds, soft, nontender, no hepatosplenomegaly Musculoskeletal: no cyanosis or clubbing, extremities motor strength 5/5 Neurologic: PERRL, EOMI, accommodation nl, no face palsy, no dysarthria Psychiatric: A+Ox3, euthymic affect Lymphatic: no cervical or axillary lymphadenopathy Results & Data Vital Signs (Past 12 Hours) Vital Signs Temp Pulse Resp BP Pulse Ox 03/18/19 06:14 82 134/66 93 03/18/19 05:00 77 18 121/69 98 03/18/19 04:00 81 20 123/73 100 03/18/19 03:00 81 20 129/66 100 03/18/19 02:01 102 H 20 122/82 93 03/18/19 01:00 84 116/62 100 03/18/19 00:00 37.0 C 74 18 132/75 100 03/17/19 23:00 92 H 20 145/78 H 100 (1) Anemia Anemia type: unspecified type Qualified Code(s): D64.9 - Anemia, unspecified
--- NOTE | 2019-03-18 12:49 | Anesthesiology Consultation ---
Date of Service March 18, 2019 Assessment & Plan (1) Encounter for pre-operative examination: Chart Review Chart Review: Acceptable Risk for Surgery and Patient NOT seen in Pre Admission Testing Consults Requested none History Surgery Operation Date: 03/18/19 09:30 Proposed Procedures p Colonoscopy EGD Dr. Ellis - Bautista Ellis MD Height/Weight Height: 5 ft 5 in Weight: 93.3 kg Allergies Allergy/AdvReac Type Severity Reaction Status Date / Time Penicillins Allergy Severe HIVES, Verified 03/18/19 12:48 SOB, FACIAL SWELLING benzonatate AdvReac Intermediate rash Verified 03/18/19 12:48 [From Tesganga Young] Medications Home Medications Medication Instructions Recorded Confirmed Last Taken rivaroxaban [Xarelto] 20 mg PO PM 03/16/19 03/16/19 03/15/19 Active Medications Generic Name Dose Route Start Last Admin Trade Name Freq PRN Reason Stop Dose Admin Potassium Chloride/Dextrose/Sod Cl 20 meq in 1,000 mls @ 100 mls/hr 03/16/19 15:00 03/18/19 04:19 D5nss + 20meq Kcl IV 04/15/19 14:59 100 mls/hr .Q10H YUNG Administration Ciprofloxacin 400 mg in 200 mls @ 100 mls/hr 03/16/19 16:00 03/18/19 06:35 Cipro IV 03/26/19 15:59 Infused Q12H YUNG Infusion Metronidazole 500 mg in 100 mls @ 100 mls/hr 03/16/19 16:00 03/18/19 11:00 Flagyl IV 03/26/19 15:59 Infused Q8H YUNG Infusion Ioversol 94 ml 03/16/19 12:20 03/16/19 12:21 Optiray 320 100ml IV 03/20/19 12:19 94 ml ONCE PRN Administration Interaction Checking Morphine Sulfate 4 mg 03/16/19 15:04 03/18/19 06:09 Morphine Sulfate IV 03/30/19 15:03 4 mg Q4H PRN Administration Pain Past Medical History Medical History Lower leg fracture (Resolved) s/p pins & screws Pulmonary embolism (Chronic) Exercise / Class Metabolic Activity II 4-5 Yardwork/Stairs/Walk up hill Past Family History Family History Mother Factor V Leiden Past Surgical History Surgical History History of surgery on extremity Hx of appendectomy S/P lobectomy of lung Pt reports LLL resected s/p PE Past Anesthesia History No Hx of Anesthesia Complications and No Family Hx of Anesthesia Complications History of PONV No Hx of PONV and No Hx of Motion Sickness Social History Smoking Status: Never smoker Hx Alcohol Use: No Hx Substance Use: No Physical Exam Vital Signs Last Vital Signs Temp 37.0 C 03/18/19 00:00 Pulse 78 03/18/19 11:01 Resp 14 03/18/19 11:01 BP 107/59 L 03/18/19 11:01 Pulse Ox 94 03/18/19 11:01 Testing Laboratory Results 03/18/19 05:13 03/18/19 05:13 PT 10.7 Seconds (9.0-12.0) 03/16/19 11:08 INR 1.0 (0.9-1.1) 03/16/19 11:08 APTT 21.7 Seconds (21.0-31.0) 03/16/19 11:08 Urine Color Yellow 03/16/19 23:45 Urine Appearance Clear (Clear) 03/16/19 23:45 Urine pH 5.0 (4.5-7.5) 03/16/19 23:45 Ur Specific [place] > 1.045 (1.000-1.030) H 03/16/19 23:45 Urine Protein Negative (Negative) 03/16/19 23:45 Urine Glucose (UA) Negative (Negative) 03/16/19 23:45 Urine Ketones Negative (Negative) 03/16/19 23:45 Urine Nitrite Negative (Negative) 03/16/19 23:45 Ur Leukocyte Esterase Negative (Negative) 03/16/19 23:45 Blood Type A Positive 03/16/19 12:05 Antibody Screen NEGATIVE 03/16/19 12:05
[2019-03-18] MEDS ORDERED: LIDOCAINE HCL 2% 2 ML VIAL/AMP(20MG/ML) INFIL ONE ×2 (14:21→17:16)
[2019-03-18] MEDS ORDERED: PROPOFOL IV EMULSION 10 MG/ML 20 ML VIAL IV ONE ×2 (14:21→17:16)
--- NOTE | 2019-03-18 14:23 | GI REPORT ---
Patient Name: Liliana Langley Procedure Date: 03/18/2019 1:46 PM Date of : 1965 Admit Type: Inpatient Age: 53 Gender: Female Attending MD: Bautista Ellis MD Procedure: Upper GI endoscopy Providers: Bautista Ellis MD Referring MD: Maldonado Mae Indications: Anemia Medicines: Monitored Anesthesia Care Complications: No immediate complications. Estimated Blood Loss: Estimated blood loss: none. Procedure: Pre-Anesthesia Assessment: - Prior to the procedure, a History and Physical was performed, and patient medications and allergies were reviewed. The patient is competent. The risks and benefits of the procedure and the sedation options and risks were discussed with the patient. All questions were answered and informed consent was obtained. Patient identification and proposed procedure were verified by the physician and the nurse in the procedure room. Mental Status Examination: alert and oriented. Airway Examination: normal oropharyngeal airway and neck mobility. Respiratory Examination: clear to auscultation. CV Examination: normal. ASA Grade Assessment: III - A patient with severe systemic disease. After reviewing the risks and benefits, the patient was deemed in satisfactory condition to undergo the procedure. The anesthesia plan was to use monitored anesthesia care (MAC). Immediately prior to administration of medications, the patient was re-assessed for adequacy to receive sedatives. The heart rate, respiratory rate, oxygen saturations, blood pressure, adequacy of pulmonary ventilation, and response to care were monitored throughout the procedure. The physical status of the patient was re-assessed after the procedure. After obtaining informed consent, the endoscope was passed under direct vision. Throughout the procedure, the patient's blood pressure, pulse, and oxygen saturations were monitored continuously. The Endoscope was introduced through the mouth, and advanced to the second part of duodenum. The upper GI endoscopy was accomplished without difficulty. The patient tolerated the procedure well. Findings: The examined esophagus was normal. Mildly erythematous mucosa was found in the gastric antrum. Biopsies were taken with a cold forceps for Helicobacter pylori testing. Verification of patient identification for the specimen was done by the physician and nurse using the patient's name and date. The duodenal bulb and second portion of the duodenum were normal. Biopsies were taken with a cold forceps for histology. Impression: - Normal esophagus. - Erythematous mucosa in the antrum. Biopsied. - Normal duodenal bulb and second portion of the duodenum. Biopsied. Recommendation: - Await pathology results. - Perform a colonoscopy today. Bautista Ellis MD 03/18/2019 2:22:46 PM This report has been signed electronically. Note Initiated On: 03/18/2019 1:46 PM Number of Addenda: 0 I attest to the content of the Intraoperative Record and orders documented therein, exceptions below {[id number]}
--- NOTE | 2019-03-18 14:34 | GI REPORT ---
Patient Name: Liliana Langley Procedure Date: 03/18/2019 1:46 PM Date of : 1965 Admit Type: Inpatient Age: 53 Gender: Female Attending MD: Bautista Ellis MD Procedure: Colonoscopy Providers: Bautista Ellis MD Referring MD: Maldonado Mae Indications: Abnormal CT of the GI tract, Anemia Medicines: Monitored Anesthesia Care Complications: No immediate complications. Estimated Blood Loss: Estimated blood loss: none. Procedure: Pre-Anesthesia Assessment: - Prior to the procedure, a History and Physical was performed, and patient medications and allergies were reviewed. The patient is competent. The risks and benefits of the procedure and the sedation options and risks were discussed with the patient. All questions were answered and informed consent was obtained. Patient identification and proposed procedure were verified by the physician and the nurse in the procedure room. Mental Status Examination: alert and oriented. Airway Examination: normal oropharyngeal airway and neck mobility. Respiratory Examination: clear to auscultation. CV Examination: normal. ASA Grade Assessment: III - A patient with severe systemic disease. After reviewing the risks and benefits, the patient was deemed in satisfactory condition to undergo the procedure. The anesthesia plan was to use monitored anesthesia care (MAC). Immediately prior to administration of medications, the patient was re-assessed for adequacy to receive sedatives. The heart rate, respiratory rate, oxygen saturations, blood pressure, adequacy of pulmonary ventilation, and response to care were monitored throughout the procedure. The physical status of the patient was re-assessed after the procedure. After I obtained informed consent, the scope was passed under direct vision. Throughout the procedure, the patient's blood pressure, pulse, and oxygen saturations were monitored continuously. The Scope was introduced through the anus with the intention of advancing to the cecum. The scope was advanced to the sigmoid colon before the procedure was aborted. Medications were given. The colonoscopy was performed without difficulty. The patient tolerated the procedure well. The quality of the bowel preparation was good. The rectum was photographed. Findings: The perianal exam findings include thrombosed external hemorrhoids. Segmental severe mucosal changes (necrosis) were found in the sigmoid colon and from 20 to 30 cm proximal to the anus. Biopsies were taken with a cold forceps for histology, no blood oozed from the biopsy site consistent with necrosis. Verification of patient identification for the specimen was done by the physician and nurse using the patient's name and date. Procedure was aborted at this point and the scope was not advanced beyond this area to avoid the risk of perforation. Non-bleeding internal hemorrhoids were found during retroflexion. The hemorrhoids were small. Impression: - Thrombosed external hemorrhoids found on perianal exam. 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 Biopsied. - Non-bleeding internal hemorrhoids. Recommendation: - Return patient to [facility] for ongoing care. - NPO. - Surgery consult for possible resection (high risk for perforation). - Await pathology results. - Cotninue broad spectrum IV ABx. - Echocardiogram to r/o Embolization. - CTA to evaluate the PEDRITO. - Vasculitis work up. Bautista Ellis MD 03/18/2019 2:34:28 PM This report has been signed electronically. Note Initiated On: 03/18/2019 1:46 PM Number of Addenda: 0 I attest to the content of the Intraoperative Record and orders documented therein, exceptions below {[id number]}
--- NOTE | 2019-03-18 14:47 | Progress Note ---
Date of Service March 18, 2019 Subjective Patient with Hx of PE and AC presented with anemia and severe LLQ abdominal pain, CT scan showed sigmoid colitis. Initially with Leukocytosis and Lactic acidosis that responded to ABx and Hydration. Colonoscopy showed 10 cm segment of colon necrosis due to severe ischemic colitis. In view of her abdominal pain and tenderness she is extremely high risk for perforation and I recommend urgent colonic resection. Please consult surgery. Results & Data Vital Signs (Past 12 Hours) Vital Signs Temp Pulse Pulse Resp BP BP Pulse Ox 03/18/19 14:33 83 18 104/83 95 03/18/19 14:18 90 16 119/64 99 03/18/19 12:50 36.7 C 92 H 14 144/73 H 94 03/18/19 11:01 78 14 107/59 L 94 03/18/19 10:01 77 17 152/77 H 96 03/18/19 09:01 80 127/70 93 03/18/19 08:01 77 135/71 100 03/18/19 07:01 81 140/79 100 03/18/19 06:14 82 134/66 93 03/18/19 05:00 77 18 121/69 98 03/18/19 04:00 81 20 123/73 100 03/18/19 03:00 81 20 129/66 100
[2019-03-18] MEDS ORDERED: SODIUM CHLORIDE 0.9% 250 ML IV PRN ×2 (15:00→15:09)
[2019-03-18] MEDS ORDERED: LIDOCAINE HCL 1% 20 ML VIAL ONE (15:05)
[2019-03-18] MEDS ORDERED: BUPIVACAINE 0.5 % 5 MG/1 ML MPF 30ML VIAL ONE (15:05)
[2019-03-18] MEDS ORDERED: BACITRACIN OINT 15 GM TUBE ONE (15:05)
--- NOTE | 2019-03-18 15:06 | Surgery Consultation ---
Date of Consultation March 18, 2019 Assessment & Plan (1) Colon necrosis: pt is 53 year old female who was admitted to ICU for anemia and abdominal pain, colitis, today, pt had colonoscopy done finding- necrosis of sigmoid colon IMP: necrosis of sigmoid colon Plan, I recommend to do emergent exploratory laparotomy, bowel resection, colostomy, D/W benefits, risks and alternatives of the surgery with pt and her , the risks may including but not limit such as infection, sepsis, bleeding, incisional hernia, bowel obstruction, anastomotic leak, SC, DVT, stroke, , pt and her understood, they agree with the surgery, I answered all questions, 2 Units PRBC now, pt will go to OR soon, D/W ICU attending, History of Present Illness Attending Physician: Ms. Liliana Langley is a 53-year-old female patient of Dr. Weston with a history of PE (provoked 3 years ago) on rivaroxaban (Xarelto), most recent dose on Saturday. GI is consulted for anemia, question colitis The patient tells me that about a week ago she noticed that her bowel movements consisted of clear mucus a small amount and she did not have any abdominal pain or cramping with those bowel movements. However, as the week progressed she began to have diffuse abdominal discomfort. . She has not passed flatus since . On Saturday she noticed a distended painful abdomen and yesterday vomited several times. She denies any gross GI bleeding. She has felt tired weak and had exertional shortness of breath for at least a few months but cannot recall exactly when this started. She is never previously had endoscopy. Rectal in the ICU with occult positive stool. She denies any NSAID use. On arrival, rivaroxaban was held, CT with mild sigmoid wall thickening and mild gallbladder wall thickening. She has microcytic anemia Hb 6.1, MCV 19 on arrival, then received 2 units of red blood cells and hemoglobin this morning is 78. She also has marked leukocytosis at 21. She has not passed a BM. Abdomen is distended though not taunt and she remains with a diffuse painful abdomen though she is awake, alert, oriented and hemodynamically stable with BP: 122/68, HR 87, POx 93% with O2 by NC at 2L/min. I ( Mary Kay Mcnair MD ) got a call for consult colonoscopy finding- necrosis of sigmoid colon, I reviewed pt's H/P with pt and her , pt has been abdominal pain for 1 week, pt was admitted to ICU for anemia, colitis yesterday, H/H 6.10/07. she had 2 PRBC yesterday, today H/H 7.03/11. pt is still have a lot abdominal pain, pt denies nausea, no vomiting, no chest pain, no bloody stool, or dark stool, today pt had Colonoscopy by GI doctor finding- necrosis of sigmoid colon, Allergies Allergy/AdvReac Type Severity Reaction Status Date / Time Penicillins Allergy Severe HIVES, Verified 03/18/19 12:48 SOB, FACIAL SWELLING benzonatate AdvReac Intermediate rash Verified 03/18/19 12:48 [From Dior Young] Home Medications Home Medications Medication Instructions Recorded Confirmed Type rivaroxaban [Xarelto] 20 mg PO PM 03/16/19 03/18/19 History Patient History Medical History Lower leg fracture (Resolved) s/p pins & screws Pulmonary embolism (Chronic) Surgical History History of surgery on extremity Hx of appendectomy S/P lobectomy of lung Pt reports LLL resected s/p PE Family History Mother Factor V Leiden Social History Preferred Language: Occitan Communication Ability: Effective Facilities Assistant Required: No Beliefs That Will Affect Care: None Current Living Situation: Spouse Other Information That Helps Us Care for You: No Feels Safe at Home: Yes Safety Concerns: Feels Safe At This Time Smoking Status: Never smoker Hx Alcohol Use: No Hx Substance Use: No Review of Systems Constitutional: as per Subjective / HPI Ear, Nose, Mouth, Throat: as per Subjective / HPI Respiratory: as per Subjective / HPI PE 3 years ago Cardiovascular: as per Subjective / HPI Additional Comments: chest pain Gastrointestinal: abdominal pain colitis, esophagitis Genitourinary: as per Subjective / HPI Musculoskeletal: as per Subjective / HPI Neurologic: as per Subjective / HPI Psychiatric: as per Subjective / HPI Endocrine: as per Subjective / HPI Hematologic / Lymphatic: as per Subjective / HPI Physical Exam Constitutional: WD/WN, vitals as above well developed, well nourished, + ill appearing, + intoxicated appearing and + obese ENMT: external ear and nose normal, oropharynx normal Neck: trachea midline, no thyromegaly trachea midline Respiratory: normal respiratory effort, lungs clear to auscultation normal respiratory effort Cardiovascular: RRR, no murmur, no edema Rate/Rhythm: regular rate, regular rhythm and + tachycardic Heart Sounds: normal S1 and normal S2 Gastrointestinal (Abdomen): slightly distend, tenderness LLQ, with rebound pain, guarding, BS_ Musculoskeletal: no cyanosis or clubbing, extremities motor strength 5/5 Neurologic: patellar DTR's 2+ bilat, sensation intact Psychiatric: A+Ox3, euthymic affect Orientation: alert and oriented x 3 Lymphatic: no cervical or axillary lymphadenopathy Results & Data Vital Signs (Past 12 Hours) Vital Signs Temp Pulse Pulse Resp BP BP Pulse Ox 03/18/19 14:48 86 18 112/69 98 03/18/19 14:33 83 18 104/83 95 03/18/19 14:18 90 16 119/64 99 03/18/19 12:50 36.7 C 92 H 14 144/73 H 94 03/18/19 11:01 78 14 107/59 L 94 03/18/19 10:01 77 17 152/77 H 96 03/18/19 09:01 80 127/70 93 03/18/19 08:01 77 135/71 100 03/18/19 07:01 81 140/79 100 03/18/19 06:14 82 134/66 93 03/18/19 05:00 77 18 121/69 98 03/18/19 04:00 81 20 123/73 100 Laboratory Results Abnormal lab results 03/16/19 03/17/19 03/18/19 Range/Units 12:05 18:31 05:13 WBC (4.8-10.8) K/uL RBC (4.2-5.4) M/uL Hgb (12.0-16.0) g/dL Hct (37-47) % MCV (80-100) fL MCH (25-34) pg MCHC (32-36) g/dL RDW Std Deviation (36.4-46.3) fL RDW Coeff of Omero (11.5-14.5) % Immature Gran # (Auto) (0.00-0.02) K/uL Neut # (Auto) (1.4-6.5) K/uL Izard # (Auto) (0.11-0.59) K/uL BUN/Creatinine Ratio 9.3 L (10-20) Glucose 139 H (70-99) mg/dl POC Glucose 124 H (70-99) Calcium 8.4 L (8.5-10.1) mg/dl Phosphorus 2.4 L (2.5-4.9) mg/dl Iron 9 L (35-150) mcg/dl Transferrin % Sat 2 L (15-50) % Crossmatch See Detail 03/18/19 Range/Units 05:13 WBC 15.46 H (4.8-10.8) K/uL RBC 3.85 L (4.2-5.4) M/uL Hgb 7.5 L (12.0-16.0) g/dL Hct 26.5 L (37-47) % MCV 68.8 L (80-100) fL MCH 19.5 L (25-34) pg MCHC 28.3 L (32-36) g/dL RDW Std Deviation 62.1 H (36.4-46.3) fL RDW Coeff of Omero 24.7 H (11.5-14.5) % Immature Gran # (Auto) 0.05 H (0.00-0.02) K/uL Neut # (Auto) 12.21 H (1.4-6.5) K/uL Izard # (Auto) 1.30 H (0.11-0.59) K/uL BUN/Creatinine Ratio (10-20) Glucose (70-99) mg/dl POC Glucose (70-99) Calcium (8.5-10.1) mg/dl Phosphorus (2.5-4.9) mg/dl Iron (35-150) mcg/dl Transferrin % Sat (15-50) % Crossmatch Diagnostic Findings ABDOMEN AND PELVIS CT WITH IV CONTRAST CT DOSE: 914.89 mGycm HISTORY: Acute generalized abdominal pain diffuse abd pain, mucus stools. TECHNIQUE: Multiaxial CT images of the abdomen and pelvis were performed following the use of intravenous contrast. A dose lowering technique was utilized adhering to the principles of ALARA. COMPARISON STUDY: CTA of the chest 04/05/2018 FINDINGS: Minimal dependent subsegmental bibasilar atelectasis. There is no pneumatosis or pneumoperitoneum. The imaged inferior cardiac chambers are unremarkable. Trace pericardial effusion. Mild nonspecific periportal edema. Liver is otherwise unremarkable. The spleen, pancreas and adrenal glands are also unremarkable. There is suggestion of mild gallbladder wall thickening. No cholelithiasis or biliary ductal dilation identified. Kidneys, ureters and urinary bladder are within normal limits. Uterus and adnexa are also within normal limits. Mild calcified plaque of the abdominal aorta without aneurysm. There is no adenopathy. Small hiatal hernia. No bowel obstruction. Trace free pelvic fluid. Suggestion of mild wall thickening noted throughout the mid to distal sigmoid colon. Mild colonic diverticulosis without acute diverticulitis. Terminal ileum is unremarkable. The appendix is not diagnostically visualized. No secondary signs of acute appendicitis. Tiny fat filled periumbilical hernia, diastases 1.9 cm. Soft tissues and breast parenchyma are unremarkable. Multilevel spondylitic spurring and facet arthrosis. IMPRESSION: 1. Mild wall thickening about the mid to distal sigmoid colon may be secondary to partial distention versus a nonspecific colitis. Correlate clinically. Additionally, there is trace free pelvic fluid which may be on a reactive basis. 2. Suggestion of mild gallbladder wall thickening. Correlate clinically. 3. No bowel obstruction, pneumatosis or pneumoperitoneum. 4. Small hiatal hernia. 5. Additional findings as above. I reviewed colonoscopy- segmental necrosis of sigmoid colon, 20-30cm and anus,
[2019-03-18] MEDS ORDERED: MIDAZOLAM HCL 1 MG/ML 2ML VIAL ONE (15:09)
[2019-03-18] MEDS ORDERED: fentaNYL citrate 100 MCG/2 ML VIAL ONE (15:09)
--- NOTE | 2019-03-18 15:27 | History & Physical Bridge Note ---
Date of Service March 18, 2019 History & Physical Bridge Note I have examined the patient, reviewed the History & Physical and in the interval since the performance of the History & Physical I have noted the following changes of clinical significance: no changes noted Supervising Physician Co-Signing Physician Notes I performed a history and physical examination of the patient, including specifically on physical exam - soft, nontender abdomen. I have discussed the patient's management with Naomy. Please refer to the nurse practitioner's note for the documented findings and plan of care. EGD and colonoscopy today.
--- NOTE | 2019-03-18 15:48 | Anesthesiology Progress Note ---
Date of Service March 18, 2019 Anesthesia Post Procedure Vital Signs Vital Signs: Temp Pulse Pulse Resp BP BP Pulse Ox 03/18/19 15:28 36.9 C 89 22 133/73 97 03/18/19 14:48 86 18 112/69 98 03/18/19 14:33 83 18 104/83 95 03/18/19 14:18 90 16 119/64 99 03/18/19 12:50 36.7 C 92 H 14 144/73 H 94 03/18/19 11:01 78 14 107/59 L 94 03/18/19 10:01 77 17 152/77 H 96 03/18/19 09:01 80 127/70 93 03/18/19 08:01 77 135/71 100 03/18/19 07:01 81 140/79 100 03/18/19 06:14 82 134/66 93 03/18/19 05:00 77 18 121/69 98 03/18/19 04:00 81 20 123/73 100 03/18/19 03:00 81 20 129/66 100 03/18/19 02:01 102 H 20 122/82 93 03/18/19 01:00 84 116/62 100 03/18/19 00:00 37.0 C 74 18 132/75 100 03/17/19 23:00 92 H 20 145/78 H 100 03/17/19 22:00 84 20 130/66 99 03/17/19 21:00 80 20 138/74 100 03/17/19 20:00 36.8 C 84 129/67 92 03/17/19 19:00 84 131/64 90 03/17/19 18:01 37.4 C 84 135/71 92 03/17/19 17:01 81 128/69 97 03/17/19 16:20 87 95 03/17/19 16:10 87 97 03/17/19 16:00 37.4 C 82 138/68 100 Pain Intensity Left Abdomen: Pain Intensity: 10 Transfer of Care Handoff Completed per policy Notes Mental Status: alert / awake / arousable and participated in evaluation Patient Amnestic to Procedure: Yes Nausea / Vomiting: adequately controlled Pain: see Notes below Airway Patency, RR, SpO2: stable & adequate BP & HR: stable & adequate Hydration State: stable & adequate Anesthetic Complications: no major complications apparent and Pt Satisfied with anesthetic care Notes: pt found to have ischemic bowel and planned trip now to OR after blood transfusion in ICU
--- NOTE | 2019-03-18 16:01 | Anesthesiology Consultation ---
Date of Service March 18, 2019 Acute CHF Necrotic Bowel Acute anemia DVTs Factor V Leiden Sepsis Assessment & Plan Chart Review Chart Review: Acceptable Risk for Surgery and Patient NOT seen in Pre Admission Testing Consults Requested none ASA [id number] Proposed Anesthesia Anesthesia Type: General Anesthesia Line Insertion: Arterial line Risk / Benefits Reviewed With: PT / POA / Parent / Guardian, Accepts Plan and Informed Consent Obtained History Surgery Operation Date: 03/18/19 07:50 Proposed Procedures p Exploratory Laparotomy - Bowel - Mary Kay Mcnair MD Operation Date: 03/18/19 09:30 Proposed Procedures p Colonoscopy EGD Dr. Ellis - Bautista Ellis MD Height/Weight Height: 5 ft 5 in Weight: 93.3 kg Allergies Allergy/AdvReac Type Severity Reaction Status Date / Time Penicillins Allergy Severe HIVES, Verified 03/18/19 12:48 SOB, FACIAL SWELLING benzonatate AdvReac Intermediate rash Verified 03/18/19 12:48 [From Dior Young] Medications Home Medications Medication Instructions Recorded Confirmed Last Taken rivaroxaban [Xarelto] 20 mg PO PM 03/16/19 03/18/19 03/15/19 Active Medications Generic Name Dose Route Start Last Admin Trade Name Freq PRN Reason Stop Dose Admin Potassium Chloride/Dextrose/Sod Cl 20 meq in 1,000 mls @ 100 mls/hr 03/16/19 15:00 03/18/19 12:30 D5nss + 20meq Kcl IV 04/15/19 14:59 0 mls/hr .Q10H YUNG Infusion Ciprofloxacin 400 mg in 200 mls @ 100 mls/hr 03/16/19 16:00 03/18/19 06:35 Cipro IV 03/26/19 15:59 Infused Q12H YUNG Infusion Metronidazole 500 mg in 100 mls @ 100 mls/hr 03/16/19 16:00 03/18/19 15:45 Flagyl IV 03/26/19 15:59 100 mls/hr Q8H YUNG Administration Ioversol 94 ml 03/16/19 12:20 03/16/19 12:21 Optiray 320 100ml IV 03/20/19 12:19 94 ml ONCE PRN Administration Interaction Checking Morphine Sulfate 4 mg 03/16/19 15:04 03/18/19 06:09 Morphine Sulfate IV 03/30/19 15:03 4 mg Q4H PRN Administration Pain NPO Date Last Intake of Fluids: 03/18/19 Time Last Intake of Fluids: 08:15 Date Last Intake of Solids: 03/15/19 Time Last Intake of Solids: 07:00 Past Medical History Medical History Colon necrosis Lower leg fracture (Resolved) s/p pins & screws Pulmonary embolism (Chronic) Exercise / Class Metabolic Activity III < 4 Walking/Shop/Light housework Past Family History Family History Mother Factor V Leiden Past Surgical History Surgical History History of surgery on extremity Hx of appendectomy S/P lobectomy of lung Pt reports LLL resected s/p PE Past Anesthesia History No Hx of Anesthesia Complications and No Family Hx of Anesthesia Complications History of PONV No Hx of PONV and No Hx of Motion Sickness Social History Smoking Status: Never smoker Hx Alcohol Use: No Hx Substance Use: No Physical Exam Vital Signs Last Vital Signs Temp 36.9 C 03/18/19 15:28 Pulse 89 03/18/19 15:28 Resp 22 03/18/19 15:28 BP 133/73 03/18/19 15:28 Pulse Ox 97 03/18/19 15:28 Constitutional + obese ENMT Mouth: no dentition abnormality Thyromental Distance: > or= 3.5 Finger Breadths Mallampati Class: III Neck normal visual inspection Respiratory normal respiratory effort Auscultation: + diminished lung sounds Cardiovascular Rate/Rhythm: regular rate and regular rhythm Psychiatric Orientation: alert Testing Laboratory Results 03/18/19 05:13 03/18/19 05:13 PT 10.7 Seconds (9.0-12.0) 03/16/19 11:08 INR 1.0 (0.9-1.1) 03/16/19 11:08 APTT 21.7 Seconds (21.0-31.0) 03/16/19 11:08 Urine Color Yellow 03/16/19 23:45 Urine Appearance Clear (Clear) 03/16/19 23:45 Urine pH 5.0 (4.5-7.5) 03/16/19 23:45 Ur Specific [place] > 1.045 (1.000-1.030) H 03/16/19 23:45 Urine Protein Negative (Negative) 03/16/19 23:45 Urine Glucose (UA) Negative (Negative) 03/16/19 23:45 Urine Ketones Negative (Negative) 03/16/19 23:45 Urine Nitrite Negative (Negative) 03/16/19 23:45 Ur Leukocyte Esterase Negative (Negative) 03/16/19 23:45 Blood Type A Positive 03/16/19 12:05 Antibody Screen NEGATIVE 03/16/19 12:05 Electrocardiogram Date: 03/17/19 Findings: + NSR @ and + NSST changes Chest X-Ray Date: 03/17/19 Findings: + pulmonary vascular congestion
[2019-03-18] MEDS ORDERED: LARYING-O-JET KIT (LTA) ONE (17:16)
[2019-03-18] MEDS ORDERED: ONDANSETRON INJ 2 MG/ML 2 ML VIAL ONE (17:16)
[2019-03-18] MEDS ORDERED: SUCCINYLCHOLINE CHLORIDE 20 MG/ML 10 ML VIAL ONE (17:16)
[2019-03-18] MEDS ORDERED: DEXAMETHASONE SOD INJ 4 MG/ML VIAL ONE (17:16)
[2019-03-18] MEDS ORDERED: ROCURONIUM BROMIDE 10 MG/ML 5 ML VIAL ONE (17:16)
[2019-03-18] MEDS ORDERED: GLYCOPYRROLATE 0.2 MG/ML VIAL ONE (17:16)
[2019-03-18] MEDS ORDERED: NEOSTIGMINE METHYLSULFATE 5 MG/5 ML SYR ONE (17:16)
[2019-03-18] MEDS ORDERED: HYDROmorphone INJ 2 MG/ML SYR/VIAL ONE (17:49)
--- NOTE | 2019-03-18 18:54 | Post Operative Brief Note ---
Immediate Post Op Note v1 Date of Surgery March 18, 2019 Pre & Post Diagnosis Operation Date: 03/18/19 07:50 Pre-Op Diagnosis: Necrosis of Sigmoid Colon Post-Op Diagnosis: Necrosis of Sigmoid Colon Operation Date: 03/18/19 09:30 Pre-Op Diagnosis: ANEMIA Post-Op Diagnosis: EGD: Normal Findings Procedure Operation Date: 03/18/19 07:50 Actual Procedures exploratory laparotomy, resection sigmoid colon, colostomy - Mary Kay Mcnair MD Operation Date: 03/18/19 09:30 Actual Procedures p EGD Biopsy Cytology - Bautista Ellis MD s Colonoscopy Biopsy Cytology - Bautista Ellis MD Surgeon Mary Kay Mcnair MD 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
[2019-03-18 19:17] LABS: iSTAT Creatinine 0.5 mg/dl (0.6-1.3); iSTAT Hemoglobin 9.2 g/dl (12.0-16.0); iSTAT Ionized Calcium 1.13 mmol/l (1.12-1.32); iSTAT Potassium 3.8 mEq/L (3.3-5.0)
[2019-03-18 19:17] LABS: iSTAT Arterial Blood Gas HCO3 22 meg/L (19-24); iSTAT Arterial Blood Gas pCO2 36 mmHg (35-46); iSTAT Arterial Blood Gas pH 7.39 (7.35-7.45); iSTAT Carbon Dioxide 23 mEq/l (24-31)
--- NOTE | 2019-03-18 19:43 | Surgery Progress Note ---
Date of Service S/P exploratory laparotomy, resection sigmoid colon, colostomy, pt is in ICU now, March 18, 2019 Assessment & Plan (1) Colon necrosis: pt is 53 year old female who was admitted to ICU for anemia and abdominal pain, colitis, today, pt had colonoscopy done finding- necrosis of sigmoid colon IMP: necrosis of sigmoid colon Plan, I recommend to do emergent exploratory laparotomy, bowel resection, colostomy, D/W benefits, risks and alternatives of the surgery with pt and her , the risks may including but not limit such as infection, sepsis, bleeding, incisional hernia, bowel obstruction, anastomotic leak, [place], DVT, stroke, , pt and her understood, they agree with the surgery, I answered all questions, 2 Units PRBC now, pt will go to OR soon, D/W ICU attending, 03/18/2019 7:39pm, just finished surgery pt tolerated the procedure well, VVS in ICU now, I informed pt's family members about OR finding, and the procedure pt had, they understood, I answered all questions, sanitation officer surgeon will cover this pt tomorrow and weekend, D/W ICU attending, Physical Exam Constitutional: see ICU monitor record Gastrointestinal (Abdomen): EVELIA minimal fluid, no active bleeding Results & Data Vital Signs (Past 12 Hours) Vital Signs Temp Pulse Pulse Pulse Resp BP BP 03/18/19 19:30 36.5 C 91 H 18 140/74 03/18/19 19:25 36.5 C 90 20 135/74 03/18/19 19:20 36.5 C 96 H 20 122/80 03/18/19 19:15 36.5 C 91 H 21 132/81 03/18/19 19:10 36.5 C 97 H 19 140/80 03/18/19 16:00 37 C 85 25 H 116/72 03/18/19 15:45 83 25 H 117/65 03/18/19 15:30 85 23 133/68 03/18/19 15:28 36.9 C 89 22 133/73 03/18/19 14:48 86 18 112/69 03/18/19 14:33 83 18 104/83 03/18/19 14:18 90 16 119/64 03/18/19 12:50 36.7 C 92 H 14 144/73 H 03/18/19 11:01 78 14 107/59 L 03/18/19 10:01 77 17 152/77 H 03/18/19 09:01 80 127/70 03/18/19 08:01 77 135/71 Pulse Ox 03/18/19 19:30 95 03/18/19 19:25 98 03/18/19 19:20 96 03/18/19 19:15 97 03/18/19 19:10 97 03/18/19 16:00 90 03/18/19 15:45 92 03/18/19 15:30 95 03/18/19 15:28 97 03/18/19 14:48 98 03/18/19 14:33 95 03/18/19 14:18 99 03/18/19 12:50 94 03/18/19 11:01 94 03/18/19 10:01 96 03/18/19 09:01 93 03/18/19 08:01 100
--- NOTE | 2019-03-18 20:28 | Hospitalist Progress Note ---
Date of Service March 18, 2019 Assessment & Plan (1) Ischemic colitis: Colonoscopy today revealed necrosis of the sigmoid colon consistent with ischemic colitis. This is an unusual case in that she does not have traditional risk factors for ischemia including HTN, hyperlipidemia, smoking, advanced age, etc. Apparently symptoms began sometime Saturday evening; that afternoon she had been mowing the lawn in the hot weather. She never had documented hypotension here. Did she have transient hypotension at home in the setting of severe anemia leading to colonic ischemia? Could she have had an embolus to the colonic vessels? Other? s/p emergent sigmoid resection with colostomy formation by Dr Mcnair this afternoon. Defer management to surgical team. Work-up for ischemic colitis - 1. consider CTA abd/pelvis 2. echo - rule out thrombus 3. consider sed rate/crp (for vasculitis) 4. review old records from her hospitalization for PEs in 2014 (had hypercoagulable then) Remains on cipro/flagyl. (2) Anemia: severe iron deficiency based on iron studies today. this is likely chronic. b12/folate normal. cause of iron deficiency? biopsies taken from stomach/duodenum. no evidence of upper GI bleeding. will need to inquire about whether she still has menses and if so are they heavy. will need iron replacement. s/p 2 additional units of PRBCs today. CBC am. Present on Admission?: Yes (3) Aphthous ulcer of tongue: concerning for IBD but no evidence of such at this time (4) Dyspnea: check echo, consider CT chest, obtain outpatient PFTs, etc could have pulmonary HTN related to past PEs (5) Pulmonary emboli: 2015. provoked - had the event in setting of ankle surgery. had significant PE burden in March 2015 at time of diagnosis with possible infarction as well. xarelto has been on hold since admission. VTE risk is quite high post-op. I discussed this with Tyrel Benson from the ICU. Will check with general surgery to see when a heparin infusion can be safely started from surgical standpoint. (6) Gastritis: as seen on EGD today H2 Flip IV (7) DVT prophylaxis: lovenox 40mg daily but needs systemic anticoagulation in light of PE history and high risk of post-op VTE /son updated at bedside this evening Subjective I saw the patient post-op in the ICU. She was sleeping. /son were at bedside. Events of day reviewed - had EGD that only showed gastritis. Then had colonoscopy showing severe ischemia/necrosis of the sigmoid colon. The scope was not traversed beyond the sigmoid colon. Following the colonoscopy the patient had an emergent gen surg consultation and decision was made to take him to the OR immediately. Op note reviewed - he underwent sigmoid resection with colostomy formation. Son/ confirm she DOES NOT SMOKE and has been compliant with her xarelto. Review of Systems Review of Systems: Unobtainable due to cognitive status Physical Exam Constitutional: + obese; no acute distress ENMT: NG tube in place; oxymask on mouth; MM dry Respiratory: no respiratory distress Auscultation: + rales (bases, w/ course BS b/l) Cardiovascular: Rate/Rhythm: regular rate and regular rhythm Heart Sounds: normal S1 and normal S2; no murmur Vessels: posterior tibial pulses present and dorsalis pedis pulses present; no JVD Gastrointestinal (Abdomen): Inspection/Auscultation: + abdomen distended; + abnormal bowel sounds (decreased) abdominal binder in place; EVELIA drain in place; dressings present; colostomy bag present Psychiatric: sleeping but arouses and occasionally moans Results & Data Vital Signs (Past 12 Hours) Vital Signs Temp Pulse Pulse Pulse Resp BP BP 03/18/19 19:40 36.5 C 86 18 138/92 03/18/19 19:35 36.5 C 89 18 141/71 H 03/18/19 19:30 36.5 C 91 H 18 140/74 03/18/19 19:25 36.5 C 90 20 135/74 03/18/19 19:20 36.5 C 96 H 20 122/80 03/18/19 19:15 36.5 C 91 H 21 132/81 03/18/19 19:10 36.5 C 97 H 19 140/80 03/18/19 16:00 37 C 85 25 H 116/72 03/18/19 15:45 83 25 H 117/65 03/18/19 15:30 85 23 133/68 03/18/19 15:28 36.9 C 89 22 133/73 03/18/19 14:48 86 18 112/69 03/18/19 14:33 83 18 104/83 03/18/19 14:18 90 16 119/64 03/18/19 12:50 36.7 C 92 H 14 144/73 H 03/18/19 11:01 78 14 107/59 L 03/18/19 10:01 77 17 152/77 H 03/18/19 09:01 80 127/70 Pulse Ox 03/18/19 19:40 93 03/18/19 19:35 95 03/18/19 19:30 95 03/18/19 19:25 98 03/18/19 19:20 96 03/18/19 19:15 97 03/18/19 19:10 97 03/18/19 16:00 90 03/18/19 15:45 92 03/18/19 15:30 95 03/18/19 15:28 97 03/18/19 14:48 98 03/18/19 14:33 95 03/18/19 14:18 99 03/18/19 12:50 94 03/18/19 11:01 94 03/18/19 10:01 96 03/18/19 09:01 93 Laboratory Results Laboratory Results - last 24 hr 03/16/19 03/17/19 03/18/19 12:05 23:53 05:13 WBC RBC Hgb POC Hgb Hct POC Hct MCV MCH MCHC RDW Std Deviation RDW Coeff of Omero Plt Count MPV Immature Gran % (Auto) Neut % (Auto) Lymph % (Auto) [place] % (Auto) Eos % (Auto) Baso % (Auto) Immature Gran # (Auto) Neut # (Auto) Lymph # (Auto) [place] # (Auto) Eos # (Auto) Baso # (Auto) Hypochromasia Anisocytosis Microcytosis POC pH POC pCO2 POC pO2 POC HCO3 POC Total CO2 POC Base Excess POC ABG O2 Sat POC Sodium Sodium 137 POC Potassium Potassium 3.6 POC Chloride Chloride 106 Carbon Dioxide 27 Anion Gap 5.0 POC Anion Gap POC BUN BUN 7 Creatinine 0.75 POC Creatinine Est Cr Clr Drug Dosing 97.9 Est GFR ( Amer) 105.5 Est GFR (Non-Af Amer) 91.0 BUN/Creatinine Ratio 9.3 L Glucose 139 H POC Glucose (other) Calcium 8.4 L POC Ioniz Calcium Anastasia Phosphorus 2.4 L Magnesium 2.0 Iron 9 L Transferrin 267 Transferrin % Sat 2 L Ferritin 28.5 Vitamin B12 Folate Stl C. diff Tox B Gene Negative Cdiff Gene Blood Type A Positive Antibody Screen NEGATIVE Crossmatch See Detail 03/18/19 03/18/19 03/18/19 05:13 05:13 16:59 WBC 15.46 H RBC 3.85 L Hgb 7.5 L POC Hgb Hct 26.5 L POC Hct MCV 68.8 L MCH 19.5 L MCHC 28.3 L RDW Std Deviation 62.1 H RDW Coeff of Omero 24.7 H Plt Count 244 MPV 9.4 Immature Gran % (Auto) 0.3 Neut % (Auto) 79.0 Lymph % (Auto) 12.0 [place] % (Auto) 8.4 Eos % (Auto) 0.2 Baso % (Auto) 0.1 Immature Gran # (Auto) 0.05 H Neut # (Auto) 12.21 H Lymph # (Auto) 1.86 [place] # (Auto) 1.30 H Eos # (Auto) 0.03 Baso # (Auto) 0.01 Hypochromasia Present Anisocytosis Present Microcytosis Present POC pH 7.39 POC pCO2 36 POC pO2 135 H POC HCO3 22 POC Total CO2 23 L POC Base Excess -3.0 POC ABG O2 Sat 99.0 H POC Sodium Sodium POC Potassium Potassium POC Chloride Chloride Carbon Dioxide Anion Gap POC Anion Gap POC BUN BUN Creatinine POC Creatinine Est Cr Clr Drug Dosing Est GFR ( Amer) Est GFR (Non-Af Amer) BUN/Creatinine Ratio Glucose POC Glucose (other) Calcium POC Ioniz Calcium Anastasia Phosphorus Magnesium Iron Transferrin Transferrin % Sat Ferritin Vitamin B12 447 Folate 12.52 Stl C. diff Tox B Gene Blood Type Antibody Screen Crossmatch 03/18/19 17:36 WBC RBC Hgb POC Hgb 9.2 L Hct POC Hct 27 L MCV MCH MCHC RDW Std Deviation RDW Coeff of Omero Plt Count MPV Immature Gran % (Auto) Neut % (Auto) Lymph % (Auto) [place] % (Auto) Eos % (Auto) Baso % (Auto) Immature Gran # (Auto) Neut # (Auto) Lymph # (Auto) [place] # (Auto) Eos # (Auto) Baso # (Auto) Hypochromasia Anisocytosis Microcytosis POC pH POC pCO2 POC pO2 POC HCO3 POC Total CO2 23 L POC Base Excess POC ABG O2 Sat POC Sodium 136 Sodium POC Potassium 3.8 Potassium POC Chloride 103 Chloride Carbon Dioxide Anion Gap POC Anion Gap 15.0 L POC BUN 5 L BUN Creatinine POC Creatinine 0.5 L Est Cr Clr Drug Dosing Est GFR ( Amer) Est GFR (Non-Af Amer) BUN/Creatinine Ratio Glucose POC Glucose (other) 148 H Calcium POC Ioniz Calcium Anastasia 1.13 Phosphorus Magnesium Iron Transferrin Transferrin % Sat Ferritin Vitamin B12 Folate Stl C. diff Tox B Gene Blood Type Antibody Screen Crossmatch PG Care Time/CCT Total # of Minutes Spent Total Time Spent with Patient: Total time spent is greater than 50% in coordination of care (as documented) at patient's floor/unit and/or counseling patient: (1) Anemia Anemia type: unspecified type Qualified Code(s): D64.9 - Anemia, unspecified (2) Dyspnea Dyspnea type: dyspnea on exertion Qualified Code(s): R06.09 - Other forms of dyspnea (3) Pulmonary emboli Pulmonary embolism type: unspecified Chronicity: unspecified Acute cor pulmonale presence: without acute cor pulmonale Qualified Code(s): I26.99 - Other pulmonary embolism without acute cor pulmonale (4) Gastritis Gastritis type: unspecified gastritis Chronicity: unspecified Gastritis bleeding: without bleeding Qualified Code(s): K29.70 - Gastritis, unspecified, without bleeding
[2019-03-18] MEDS: ONDANSETRON INJ 2 MG/ML 2 ML VIAL IV PRN (20:45)
[2019-03-18] MEDS: FAMOTIDINE 20 MG in SYRINGE 3 ML IV SCH (20:45)
--- NOTE | 2019-03-18 20:56 | Anesthesiology Progress Note ---
Date of Service March 18, 2019 Anesthesia Post Procedure Vital Signs Vital Signs: Temp Pulse Pulse Pulse Resp BP BP 03/18/19 20:00 87 03/18/19 19:40 36.5 C 86 18 138/92 03/18/19 19:35 36.5 C 89 18 141/71 H 03/18/19 19:30 36.5 C 91 H 18 140/74 03/18/19 19:25 36.5 C 90 20 135/74 03/18/19 19:20 36.5 C 96 H 20 122/80 03/18/19 19:15 36.5 C 91 H 21 132/81 03/18/19 19:10 36.5 C 97 H 19 140/80 03/18/19 16:00 37 C 85 25 H 116/72 03/18/19 15:45 83 25 H 117/65 03/18/19 15:30 85 23 133/68 03/18/19 15:28 36.9 C 89 22 133/73 03/18/19 14:48 86 18 112/69 03/18/19 14:33 83 18 104/83 03/18/19 14:18 90 16 119/64 03/18/19 12:50 36.7 C 92 H 14 144/73 H 03/18/19 11:01 78 14 107/59 L 03/18/19 10:01 77 17 152/77 H 03/18/19 09:01 80 127/70 03/18/19 08:01 77 135/71 03/18/19 07:01 81 140/79 03/18/19 06:14 82 134/66 03/18/19 05:00 77 18 121/69 03/18/19 04:00 81 20 123/73 03/18/19 03:00 81 20 129/66 03/18/19 02:01 102 H 20 122/82 03/18/19 01:00 84 116/62 03/18/19 00:00 37.0 C 74 18 132/75 03/17/19 23:00 92 H 20 145/78 H 03/17/19 22:00 84 20 130/66 03/17/19 21:00 80 20 138/74 Pulse Ox 03/18/19 20:00 03/18/19 19:40 93 03/18/19 19:35 95 03/18/19 19:30 95 03/18/19 19:25 98 03/18/19 19:20 96 03/18/19 19:15 97 03/18/19 19:10 97 03/18/19 16:00 90 03/18/19 15:45 92 03/18/19 15:30 95 03/18/19 15:28 97 03/18/19 14:48 98 03/18/19 14:33 95 03/18/19 14:18 99 03/18/19 12:50 94 03/18/19 11:01 94 03/18/19 10:01 96 03/18/19 09:01 93 03/18/19 08:01 100 03/18/19 07:01 100 03/18/19 06:14 93 03/18/19 05:00 98 03/18/19 04:00 100 03/18/19 03:00 100 03/18/19 02:01 93 03/18/19 01:00 100 03/18/19 00:00 100 03/17/19 23:00 100 03/17/19 22:00 99 03/17/19 21:00 100 Pain Intensity Left Abdomen: Pain Intensity: 10 Transfer of Care Handoff Completed per policy Notes Mental Status: alert / awake / arousable Patient Amnestic to Procedure: Yes Nausea / Vomiting: adequately controlled Pain: adequately controlled Airway Patency, RR, SpO2: stable & adequate BP & HR: stable & adequate Hydration State: stable & adequate Anesthetic Complications: no major complications apparent Notes: Report personally given to refund specialist
[2019-03-18] MEDS ORDERED: FAMOTIDINE 20MG/5ML IV PUSH IV SCH (21:00)
--- NOTE | 2019-03-18 21:08 | Procedure Note ---
Procedure Note Date of Service March 18, 2019 Procedure: Wire Coiner Indwelling Peripherally Inserted IV Catheter Placement Attending: Dr. Turpin APC: Tyrel Benson PA-C Indication: Need for IV Access, Poor Vascular Access Anesthesia: None Verbal consent was obtained from patient prior to performing the procedure. A time-out was completed verifying correct patient, procedure, site, positioning, and implant(s) or special equipment if applicable. Utilizing bedside ultrasound, vascularity of the RIGHT upper extremity was assessed. V essel size was noted for appropriate catheter selection and skin was marked with gentle pressure. Patients RIGHT upper extremity was prepped and draped in the usual sterile fashion utilizing chlorhexidine. Ultrasound guidance was used to aid needle placement. An 18 g Endurance Catheter was introduced into the RIGHT Cephalic vein under direct ultrasound guidance. Guide wire was easily deployed without resistance. Catheter was threaded over the guide wire without resistance and the entire apparatus was removed intact. Good venous blood return was noted in the catheter. The IV catheter was easily flushed with sterile saline flush. Sterile clave was attached to the end of the catheter and good blood return was again noted. Tourniquet was released. StatLock device and sterile dressing were applied. The patient tolerated the procedure well. Blood Loss: Minimal Complications: None Procedural Ultrasound Guidance: Procedure Date: 03/18/2019 Indication: Poor Vascular Access Attending: Dr. Turpin APC: Tyrel Benson PA-C Artery/Veins Identified: YES Access confirmed in Vein with ultrasound: YES Complications: NONE Patient tolerated procedure: WELL Coding CPT Codes Tubes, Drains, and Vasc Access - Tubes, Drains, and Vasc Access: Venipuncture, Age 3/>Req physician skill, (sep proc), Dx/Tx (not rout) ([id number])
[2019-03-19] MEDS: MoRPHine SULFATE 4 MG/ML 1 ML CARP\\VIAL IV PRN ×4 (00:10→21:33)
[2019-03-19] MEDS: metroNIDAZOLE 500 MG/100 ML BAG IV SCH ×3 (00:11→16:18)
[2019-03-19 00:53] LABS: INR 1.2 (0.9-1.1); Partial Thromboplastin Time 25.9 Seconds (21.0-31.0); Prothrombin Time 12.2 Seconds (9.0-12.0)
[2019-03-19 00:54] LABS: Hematocrit (blood only) 33.5 % (37-47); Hemoglobin 10.3 g/dL (12.0-16.0); Mean Corpuscular Hgb Conc 30.7 g/dL (32-36); Mean Corpuscular Volume 72.5 fL (80-100); Mean Platelet Volume 9.1 fL (7.4-10.4); Platelet Count 200 K/uL (130-400); RDW Coefficient of Variation 25.3 % (11.5-14.5); RDW Standard Deviation 66.4 fL (36.4-46.3); Red Blood Count 4.62 M/uL (4.2-5.4); White Blood Count 15.35 K/uL (4.8-10.8)
[2019-03-19 01:16] LABS: Hypochromasia Present; Immature Granulocytes # (auto) 0.05 K/uL (0.00-0.02); Immature Granulocytes % (auto) 0.3 %; Lymphocytes # (auto) 0.65 K/uL (1.2-3.4); Lymphocytes % (auto) 4.2 %; Monocytes # (auto) 0.67 K/uL (0.11-0.59); Monocytes % (auto) 4.4 %; Neutrophils # (auto) 13.98 K/uL (1.4-6.5); Neutrophils % (auto) 91.1 %; Polychromasia 1+
[2019-03-19] MEDS ORDERED: Heparin Adult STANDARD Wt-Based Dextrose 5% 25,000 units/500 mL IV SCH (01:30)
[2019-03-19] MEDS ORDERED: Heparin IV Standard *NO* Bolus IV ONE (01:30)
[2019-03-19] MEDS: CIPROFLOXACIN 400 MG/200 ML BAG IV SCH ×2 (03:33→17:51)
[2019-03-19 04:59] LABS: Hematocrit (blood only) 32.3 % (37-47); Hemoglobin 9.7 g/dL (12.0-16.0); Immature Granulocytes # (auto) 0.03 K/uL (0.00-0.02); Immature Granulocytes % (auto) 0.2 %; Lymphocytes # (auto) 0.66 K/uL (1.2-3.4); Lymphocytes % (auto) 4.8 %; Mean Corpuscular Volume 72.4 fL (80-100); Mean Platelet Volume 9.3 fL (7.4-10.4); Monocytes # (auto) 0.65 K/uL (0.11-0.59); Monocytes % (auto) 4.7 %; Neutrophils # (auto) 12.46 K/uL (1.4-6.5); Neutrophils % (auto) 90.3 %; Platelet Count 221 K/uL (130-400); RDW Coefficient of Variation 25.1 % (11.5-14.5); RDW Standard Deviation 66.3 fL (36.4-46.3); Red Blood Count 4.46 M/uL (4.2-5.4)
[2019-03-19 05:14] LABS: Albumin Level 2.6 gm/dl (3.4-5.0); BUN Creatinine Ratio 11.1 (10-20); Calcium 8.1 mg/dl (8.5-10.1); Creatinine Clr Calc Pharmacy 106.5 ml/min; Est GFR (African American) 115.2; Est GFR (Non-African American) 99.4; Potassium 4.1 mmol/L (3.5-5.1)
[2019-03-19 05:33] LABS: Albumin Globulin Ratio 0.8 (0.9-2); Globulin 3.4 gm/dl (2.5-4.0); Phosphorus 3.3 mg/dl (2.5-4.9)
[2019-03-19 05:36] LABS: Anisocytosis Present; Hypochromasia Present; Ovalocytes 1+; Polychromasia 1+
--- NOTE | 2019-03-19 05:43 | Operative Report ---
DATE OF OPERATION: 03/18/2019 PREOPERATIVE DIAGNOSIS: Necrosis of sigmoid colon. POSTOPERATIVE DIAGNOSIS: Necrosis of sigmoid colon. OPERATION: Exploratory laparotomy; resection, sigmoid colon; and colostomy. SURGEON: Mary Kay Mcnair MD ANESTHESIA: General. ESTIMATED BLOOD LOSS: About 20 mL URINE OUTPUT: 400 mL IV FLUID: 1700 mL. COMPLICATIONS: None. INDICATIONS FOR THE PROCEDURE: This is a 53-year-old female who was admitted to the ICU for an anemia, colitis and the patient had a colonoscopy done today and found that the patient has necrosis of sigmoid colon and after a consult with this patient I recommend to do emergency exploratory laparotomy, resection of sigmoid colon and colostomy. I did talk to the patient and patient's about the benefit and risk, alternate procedure. I indicated the risks may include but not limited such as bleeding, infection, sepsis, multiple organ failure, myocardial infarction, DVT, stroke, [place],, incisional hernia, small-bowel obstruction, even . They understand. The patient signed informed consent and I answered all questions. DETAILS OF PROCEDURE: We brought the patient to the OR, put the patient in the supine position. The patient received SCD on bilateral legs to prevent DVT. Also, the patient received 500 mg Flagyl IV and 400 mg Cipro IV for prophylactic antibiotic. The patient received general anesthesia without difficulty and the patient received Vidal catheter insertion. The abdomen was prepped and draped in routine sterile fashion. After a timeout, I made a midline incision into the abdomen without difficulty and no significant free fluid in the abdomen. Then we explored the abdomen and found the patient had necrosis of the sigmoid colon about 10 cm long. Once I put the retractor on the abdomen and mobilized the sigmoid colon I used the Endo-EMMA staple transection on the sigmoid about 5 cm from the necrosis of the proximal sigmoid colon and then I mobilized the sigmoid colon to the rectal. I used an endovascular staple in the mesentery of the sigmoid colon. Rechecked, no active bleeding. Then I used a 60 mm EMMA staple transection on the rectal and we will be able to remove the whole of the necrosis of sigmoid colon. The staple line intact. No active bleeding. Then we removed the specimen, rechecked and no active bleeding from inside the abdomen. Then I mobilized the remaining sigmoid colon to the descending colon to create a colostomy on the right side of the abdomen and opened the skin and fascial layer, the peritoneal layer and then we pulled out the remaining sigmoid colon. We used a 0 Vicryl to fix colon on the peroneal fascial layer interruptedly 360 degree and then I used 0 Vicryl to fix the colon on the skin. Once we opened the colostomy the colon remained pink, good blood circulation after we created a colostomy. In the abdomen, we used normal saline to flush the abdomen. I put one 10 mm EVELIA drainage inside the abdomen pelvic area. I used a 2-0 silk to fix the EVELIA drainage on the skin. Then rechecked everything, there was no active bleeding inside the abdomen and then I closed the fascial layer by using #1 PDS continuous running, closed subcutaneous layer by using 2-0 Vicryl continuous running, closed skin by using staple and then we put a colostomy bag in and covered the incision. The patient tolerated the procedure well. All the instrument, needle and sponge count were correct x2 at the end of case. The patient transferred to Recovery Room in stable condition. After procedure, I did talk to the patient's family member, the patient and patient's son about the OR finding and procedure we did, they understand and also I informed them over the holiday weekend the on-call surgeon will cover this patient. They understand. I attest to the content of the Intraoperative Record and any orders documented therein. Any exceptions are noted below. YONIS
[2019-03-19] MEDS: D5NSS + 20MEQ KCL 20 MEQ/1,000 ML BAG IV SCH ×2 (06:31→12:00)
--- NOTE | 2019-03-19 06:44 | Progress Note ---
Date of Service March 19, 2019 Assessment & Plan (1) Colon necrosis: pt awake, vitals stable- O2 mask, NG in place - min output H/H ok, drain serosang, on IV Heparin no acute bleeding from wound seems to be breathing comfortably d/c NG, cont munoz, ice po only for today cont IV atbx, Heparin- monitor PTT closely Subjective see a/p Results & Data Vital Signs (Past 12 Hours) Vital Signs Temp Pulse Pulse Resp BP BP Pulse Ox 03/19/19 06:00 78 17 139/78 95 03/19/19 05:00 87 19 136/74 96 03/19/19 04:03 36.6 C 82 17 147/77 H 94 03/19/19 03:00 96 H 22 133/89 95 03/19/19 02:00 79 20 130/86 94/83 L 93 03/19/19 01:00 90 20 142/80 H 94/73 L 97 03/19/19 00:00 37.1 C 79 79 19 145/84 H 101/78 98 03/18/19 23:00 82 18 143/78 H 102/78 95 03/18/19 22:00 84 17 142/88 H 113/85 94 03/18/19 21:00 83 22 124/81 131/78 93 03/18/19 20:00 36.5 C 87 76 18 137/83 121/91 93 03/18/19 19:40 36.5 C 86 18 138/92 93 03/18/19 19:35 36.5 C 89 18 141/71 H 95 03/18/19 19:30 36.5 C 91 H 18 140/74 95 03/18/19 19:25 36.5 C 90 20 135/74 98 03/18/19 19:20 36.5 C 96 H 20 122/80 96 03/18/19 19:15 36.5 C 91 H 21 132/81 97 03/18/19 19:10 36.5 C 97 H 19 140/80 97
[2019-03-19] MEDS: FAMOTIDINE 20 MG in SYRINGE 3 ML IV SCH ×2 (07:54→20:13)
--- NOTE | 2019-03-19 08:45 | Critical Care Progress Note ---
Date of Service March 19, 2019 Assessment & Plan (1) Abdominal pain: Neuro- awake alert. pain control CV- HD stable. Pulmonary- sat well on RA. incentive spirometry. OOB as soon as possible ID- abx for GI cipro/metronidazole(pcn allergy). Renal- cr ok. GI- found to have necrosis of sigmoid colon aon colonoscopy and went to or where about 10 cm of bowel was resected and colostomy was found. unclear cause. check echo. t/c eval of abdminal vessels Heme- leukocytosis. anemia with low MCV likely iron deficiency. history of pulmonary embolism. has been on anticoagulation for 3 years. unsure she needs to continue as she had a provoked PE. per pt has had hypercoagulable workup in the past that was negative. continue enoxaparin for now as higher risk in setting of surgery Endocrine- keep blood sugars <180 Dispo- ok to transfer out of the ICU (2) Anemia: Subjective pain has been controlled though worse after coughing Physical Exam Physical Exam: Constitutional: Comfortable NAD on RA HEENT: normocephalic atraumatic. MMM. CV: RRR nl s1,s2 no murmurs rubs or gallops Lungs: clear to auscultation bilaterally. no accessory muscle use Abd: soft slightly tender nondistended. drain with serosanginous Ext: no edema. no cyanosis, no clubbing Skin: warm dry. no rash Neuro: alert and oriented. moving all extremities Psych: normal mood and affect Results & Data Vital Signs (Past 12 Hours) Vital Signs Temp Pulse Pulse Resp BP BP Pulse Ox 03/19/19 06:00 78 17 139/78 95 03/19/19 05:00 87 19 136/74 96 03/19/19 04:03 36.6 C 82 17 147/77 H 94 03/19/19 03:00 96 H 22 133/89 95 03/19/19 02:00 79 20 130/86 94/83 L 93 03/19/19 01:00 90 20 142/80 H 94/73 L 97 03/19/19 00:00 37.1 C 79 79 19 145/84 H 101/78 98 03/18/19 23:00 82 18 143/78 H 102/78 95 03/18/19 22:00 84 17 142/88 H 113/85 94 03/18/19 21:00 83 22 124/81 131/78 93 Laboratory Results Laboratory Results - last 24 hr 03/16/19 03/18/19 03/18/19 12:05 16:59 17:36 WBC RBC Hgb POC Hgb 9.2 L Hct POC Hct 27 L MCV MCH MCHC RDW Std Deviation RDW Coeff of Omero Plt Count MPV Immature Gran % (Auto) Neut % (Auto) Lymph % (Auto) [place] % (Auto) Eos % (Auto) Baso % (Auto) Immature Gran # (Auto) Neut # (Auto) Lymph # (Auto) [place] # (Auto) Eos # (Auto) Baso # (Auto) Polychromasia Hypochromasia Anisocytosis Ovalocytes PT INR APTT PTT Ratio POC pH 7.39 POC pCO2 36 POC pO2 135 H POC HCO3 22 POC Total CO2 23 L 23 L POC Base Excess -3.0 POC ABG O2 Sat 99.0 H POC Sodium 136 Sodium POC Potassium 3.8 Potassium POC Chloride 103 Chloride Carbon Dioxide Anion Gap POC Anion Gap 15.0 L POC BUN 5 L BUN Creatinine POC Creatinine 0.5 L Est Cr Clr Drug Dosing Est GFR ( Amer) Est GFR (Non-Af Amer) BUN/Creatinine Ratio Glucose POC Glucose POC Glucose (other) 148 H Calcium POC Ioniz Calcium Anastasia 1.13 Phosphorus Magnesium Total Bilirubin AST ALT Alkaline Phosphatase Total Protein Albumin Globulin Albumin/Globulin Ratio Blood Type A Positive Antibody Screen NEGATIVE Crossmatch See Detail 03/18/19 03/19/19 03/19/19 23:53 00:08 00:29 WBC 15.35 H RBC 4.62 Hgb 10.3 L POC Hgb Hct 33.5 L POC Hct MCV 72.5 L D MCH 22.3 L MCHC 30.7 L RDW Std Deviation 66.4 H RDW Coeff of Omero 25.3 H Plt Count 200 MPV 9.1 Immature Gran % (Auto) 0.3 Neut % (Auto) 91.1 Lymph % (Auto) 4.2 [place] % (Auto) 4.4 Eos % (Auto) 0.0 Baso % (Auto) 0.0 Immature Gran # (Auto) 0.05 H Neut # (Auto) 13.98 H Lymph # (Auto) 0.65 L [place] # (Auto) 0.67 H Eos # (Auto) 0.00 Baso # (Auto) 0.00 Polychromasia 1+ Hypochromasia Present Anisocytosis Ovalocytes PT 12.2 H INR 1.2 H APTT 25.9 PTT Ratio 1.0 POC pH POC pCO2 POC pO2 POC HCO3 POC Total CO2 POC Base Excess POC ABG O2 Sat POC Sodium Sodium POC Potassium Potassium POC Chloride Chloride Carbon Dioxide Anion Gap POC Anion Gap POC BUN BUN Creatinine POC Creatinine Est Cr Clr Drug Dosing Est GFR ( Amer) Est GFR (Non-Af Amer) BUN/Creatinine Ratio Glucose POC Glucose 151 H POC Glucose (other) Calcium POC Ioniz Calcium Anastasia Phosphorus Magnesium Total Bilirubin AST ALT Alkaline Phosphatase Total Protein Albumin Globulin Albumin/Globulin Ratio Blood Type Antibody Screen Crossmatch 03/19/19 03/19/19 04:36 04:36 WBC 13.80 H RBC 4.46 Hgb 9.7 L POC Hgb Hct 32.3 L POC Hct MCV 72.4 L MCH 21.7 L MCHC 30.0 L RDW Std Deviation 66.3 H RDW Coeff of Omero 25.1 H Plt Count 221 MPV 9.3 Immature Gran % (Auto) 0.2 Neut % (Auto) 90.3 Lymph % (Auto) 4.8 [place] % (Auto) 4.7 Eos % (Auto) 0.0 Baso % (Auto) 0.0 Immature Gran # (Auto) 0.03 H Neut # (Auto) 12.46 H Lymph # (Auto) 0.66 L [place] # (Auto) 0.65 H Eos # (Auto) 0.00 Baso # (Auto) 0.00 Polychromasia 1+ Hypochromasia Present Anisocytosis Present Ovalocytes 1+ PT INR APTT PTT Ratio POC pH POC pCO2 POC pO2 POC HCO3 POC Total CO2 POC Base Excess POC ABG O2 Sat POC Sodium Sodium 139 POC Potassium Potassium 4.1 POC Chloride Chloride 107 Carbon Dioxide 26 Anion Gap 6.0 POC Anion Gap POC BUN BUN 8 Creatinine 0.69 POC Creatinine Est Cr Clr Drug Dosing 106.5 Est GFR ( Amer) 115.2 Est GFR (Non-Af Amer) 99.4 BUN/Creatinine Ratio 11.1 Glucose 159 H POC Glucose POC Glucose (other) Calcium 8.1 L POC Ioniz Calcium Anastasia Phosphorus 3.3 Magnesium 2.0 Total Bilirubin 1.0 AST 29 ALT 32 Alkaline Phosphatase 64 Total Protein 6.0 L Albumin 2.6 L Globulin 3.4 Albumin/Globulin Ratio 0.8 L Blood Type Antibody Screen Crossmatch (1) Abdominal pain Abdominal location: left lower quadrant Qualified Code(s): R10.32 - Left lower quadrant pain (2) Anemia Anemia type: unspecified type Qualified Code(s): D64.9 - Anemia, unspecified
[2019-03-19] MEDS ORDERED: ENOXAPARIN INJ 40 MG/0.4 ML SYR SQ SCH (09:00)
[2019-03-19] MEDS ORDERED: PANTOprazole 40 MG TAB PO SCH (09:00)
[2019-03-19] MEDS: ENOXAPARIN 100 MG/1ML SYR SC SCH ×2 (09:59→20:12)
--- NOTE | 2019-03-19 16:36 | Hospitalist Progress Note ---
Date of Service March 19, 2019 Assessment & Plan (1) Ischemic colitis: POD #1 - s/p emergent sigmoid resection with colostomy formation by Dr Mcnair. Etiology of ischemia uncertain. No obvious risk factors for such (tobacco use, HTN, advanced age, etc). Did NOT have hypotension at time of presentation. Was compliant with xarelto at home making embolic disease less likely. Hypercoagulable w/u for PEs in 2015 was fully negative. Defer management to surgical team. Work-up for ischemic colitis - 1. would check CTA abd/pelvis 2. echo - rule out thrombus - completed but results pending 3. consider sed rate/crp (for vasculitis) Remains on cipro/flagyl. (2) Anemia: severe iron deficiency based on iron studies. this is likely chronic issue. b12/folate normal. cause of iron deficiency? biopsies taken from stomach/duodenum during EGD. no evidence of upper GI bleeding. will need iron replacement. s/p 2 additional units of PRBCs yesterday. CBC acceptable today; repeat in am. (3) Aphthous ulcer of tongue: concerning for IBD but no evidence of IBD on colonoscopy. (4) Dyspnea: check echo, consider CT chest, obtain outpatient PFTs, etc could have pulmonary HTN related to past PEs (5) Pulmonary emboli: 2015. provoked - had the event in setting of ankle surgery. had significant PE burden in March 2015 at time of diagnosis with possible infarction as well. xarelto has been on hold since admission. VTE risk is quite high post-op. Thus, she is on lovenox bridge 100mg q12h. (6) Gastritis: as seen on EGD yesterday H2 Flip IV (7) DVT prophylaxis: lovenox 100mg q12h updated today Subjective patient awake/alert during the visit. her was at bedside. he complains of abdominal soreness/pain. NG tube has been removed. tolerating ice chips. denies dyspnea or orthopnea. just very tired. echo done; results pending. Review of Systems Constitutional: no fever and no chills Respiratory: no cough Cardiovascular: no chest pain Gastrointestinal: no nausea and no vomiting Physical Exam Constitutional: + obese; no acute distress and no altered mental status Respiratory: no respiratory distress Auscultation: + diminished lung sounds (bases) and + rales (bases, w/ course BS b/l) Cardiovascular: Rate/Rhythm: regular rate and regular rhythm Heart Sounds: normal S1 and normal S2; no murmur Vessels: posterior tibial pulses present and dorsalis pedis pulses present; no JVD Gastrointestinal (Abdomen): Inspection/Auscultation: + abdomen distended; + abnormal bowel sounds (decreased) Percussion/Palpation: no hepatosplenomegaly abdominal binder in place; EVELIA drain present. Colostomy bag left side of abdomen present. Psychiatric: A+Ox3, euthymic affect Results & Data Vital Signs (Past 12 Hours) Vital Signs Temp Pulse Pulse Resp BP BP Pulse Ox 03/19/19 12:00 78 19 128/85 94 03/19/19 11:00 85 21 147/74 H 98 03/19/19 10:00 85 18 115/69 94 03/19/19 09:00 80 17 133/78 96 03/19/19 08:00 36.9 C 85 21 146/86 H 94 03/19/19 07:00 80 19 141/77 H 97 03/19/19 06:00 78 17 139/78 95 03/19/19 05:00 87 19 136/74 96 Laboratory Results Laboratory Results - last 24 hr 03/16/19 03/18/19 03/18/19 12:05 16:59 17:36 WBC RBC Hgb POC Hgb 9.2 L Hct POC Hct 27 L MCV MCH MCHC RDW Std Deviation RDW Coeff of Omero Plt Count MPV Immature Gran % (Auto) Neut % (Auto) Lymph % (Auto) Gosper % (Auto) Eos % (Auto) Baso % (Auto) Immature Gran # (Auto) Neut # (Auto) Lymph # (Auto) Gosper # (Auto) Eos # (Auto) Baso # (Auto) Polychromasia Hypochromasia Anisocytosis Ovalocytes PT INR APTT PTT Ratio POC pH 7.39 POC pCO2 36 POC pO2 135 H POC HCO3 22 POC Total CO2 23 L 23 L POC Base Excess -3.0 POC ABG O2 Sat 99.0 H POC Sodium 136 Sodium POC Potassium 3.8 Potassium POC Chloride 103 Chloride Carbon Dioxide Anion Gap POC Anion Gap 15.0 L POC BUN 5 L BUN Creatinine POC Creatinine 0.5 L Est Cr Clr Drug Dosing Est GFR ( Amer) Est GFR (Non-Af Amer) BUN/Creatinine Ratio Glucose POC Glucose POC Glucose (other) 148 H Calcium POC Ioniz Calcium Anastasia 1.13 Phosphorus Magnesium Total Bilirubin AST ALT Alkaline Phosphatase Total Protein Albumin Globulin Albumin/Globulin Ratio Crossmatch See Detail 03/18/19 03/19/19 03/19/19 23:53 00:08 00:29 WBC 15.35 H RBC 4.62 Hgb 10.3 L POC Hgb Hct 33.5 L POC Hct MCV 72.5 L D MCH 22.3 L MCHC 30.7 L RDW Std Deviation 66.4 H RDW Coeff of Omero 25.3 H Plt Count 200 MPV 9.1 Immature Gran % (Auto) 0.3 Neut % (Auto) 91.1 Lymph % (Auto) 4.2 Gosper % (Auto) 4.4 Eos % (Auto) 0.0 Baso % (Auto) 0.0 Immature Gran # (Auto) 0.05 H Neut # (Auto) 13.98 H Lymph # (Auto) 0.65 L Gosper # (Auto) 0.67 H Eos # (Auto) 0.00 Baso # (Auto) 0.00 Polychromasia 1+ Hypochromasia Present Anisocytosis Ovalocytes PT 12.2 H INR 1.2 H APTT 25.9 PTT Ratio 1.0 POC pH POC pCO2 POC pO2 POC HCO3 POC Total CO2 POC Base Excess POC ABG O2 Sat POC Sodium Sodium POC Potassium Potassium POC Chloride Chloride Carbon Dioxide Anion Gap POC Anion Gap POC BUN BUN Creatinine POC Creatinine Est Cr Clr Drug Dosing Est GFR ( Amer) Est GFR (Non-Af Amer) BUN/Creatinine Ratio Glucose POC Glucose 151 H POC Glucose (other) Calcium POC Ioniz Calcium Anastasia Phosphorus Magnesium Total Bilirubin AST ALT Alkaline Phosphatase Total Protein Albumin Globulin Albumin/Globulin Ratio Crossmatch 03/19/19 03/19/19 04:36 04:36 WBC 13.80 H RBC 4.46 Hgb 9.7 L POC Hgb Hct 32.3 L POC Hct MCV 72.4 L MCH 21.7 L MCHC 30.0 L RDW Std Deviation 66.3 H RDW Coeff of Omero 25.1 H Plt Count 221 MPV 9.3 Immature Gran % (Auto) 0.2 Neut % (Auto) 90.3 Lymph % (Auto) 4.8 Gosper % (Auto) 4.7 Eos % (Auto) 0.0 Baso % (Auto) 0.0 Immature Gran # (Auto) 0.03 H Neut # (Auto) 12.46 H Lymph # (Auto) 0.66 L Gosper # (Auto) 0.65 H Eos # (Auto) 0.00 Baso # (Auto) 0.00 Polychromasia 1+ Hypochromasia Present Anisocytosis Present Ovalocytes 1+ PT INR APTT PTT Ratio POC pH POC pCO2 POC pO2 POC HCO3 POC Total CO2 POC Base Excess POC ABG O2 Sat POC Sodium Sodium 139 POC Potassium Potassium 4.1 POC Chloride Chloride 107 Carbon Dioxide 26 Anion Gap 6.0 POC Anion Gap POC BUN BUN 8 Creatinine 0.69 POC Creatinine Est Cr Clr Drug Dosing 106.5 Est GFR ( Amer) 115.2 Est GFR (Non-Af Amer) 99.4 BUN/Creatinine Ratio 11.1 Glucose 159 H POC Glucose POC Glucose (other) Calcium 8.1 L POC Ioniz Calcium Anastasia Phosphorus 3.3 Magnesium 2.0 Total Bilirubin 1.0 AST 29 ALT 32 Alkaline Phosphatase 64 Total Protein 6.0 L Albumin 2.6 L Globulin 3.4 Albumin/Globulin Ratio 0.8 L Crossmatch PG Care Time/CCT Total # of Minutes Spent Total Time Spent with Patient: Total time spent is greater than 50% in coordination of care (as documented) at patient's floor/unit and/or counseling patient: (1) Anemia Anemia type: unspecified type Qualified Code(s): D64.9 - Anemia, unspecified (2) Dyspnea Dyspnea type: dyspnea on exertion Qualified Code(s): R06.09 - Other forms of dyspnea (3) Pulmonary emboli Pulmonary embolism type: unspecified Chronicity: unspecified Acute cor pulmonale presence: without acute cor pulmonale Qualified Code(s): I26.99 - Other pulmonary embolism without acute cor pulmonale (4) Gastritis Gastritis type: unspecified gastritis Chronicity: unspecified Gastritis bleeding: without bleeding Qualified Code(s): K29.70 - Gastritis, unspecified, without bleeding
[2019-03-19] MEDS: ONDANSETRON INJ 2 MG/ML 2 ML VIAL IV PRN (18:32)
[2019-03-20] MEDS: metroNIDAZOLE 500 MG/100 ML BAG IV SCH ×3 (00:31→16:24)
[2019-03-20] MEDS: MoRPHine SULFATE 4 MG/ML 1 ML CARP\\VIAL IV PRN ×2 (01:45→06:16)
[2019-03-20] MEDS: CIPROFLOXACIN 400 MG/200 ML BAG IV SCH ×2 (03:51→16:23)
[2019-03-20 04:51] LABS: Hematocrit (blood only) 31.8 % (37-47); Hemoglobin 9.4 g/dL (12.0-16.0); Mean Corpuscular Hgb Conc 29.6 g/dL (32-36); Mean Corpuscular Volume 71.6 fL (80-100); Mean Platelet Volume 9.1 fL (7.4-10.4); Platelet Count 235 K/uL (130-400); RDW Coefficient of Variation 26.6 % (11.5-14.5); RDW Standard Deviation 68.6 fL (36.4-46.3); Red Blood Count 4.44 M/uL (4.2-5.4); White Blood Count 9.01 K/uL (4.8-10.8)
[2019-03-20 05:14] LABS: BUN Creatinine Ratio 14.8 (10-20); Calcium 8.2 mg/dl (8.5-10.1); Creatinine Clr Calc Pharmacy 100.8 ml/min; Est GFR (African American) 105.5; Potassium 3.8 mmol/L (3.5-5.1)
[2019-03-20 05:15] LABS: C Reactive Protein 8.04 mg/dl (0-0.29)
[2019-03-20] MEDS: ONDANSETRON INJ 2 MG/ML 2 ML VIAL IV PRN ×2 (06:16→13:04)
[2019-03-20] MEDS: D5NSS + 20MEQ KCL 20 MEQ/1,000 ML BAG IV SCH ×2 (06:18→22:28)
--- NOTE | 2019-03-20 06:42 | Progress Note ---
Date of Service March 20, 2019 Assessment & Plan (1) Colon necrosis: pts vitals stable- some nausea overnight has binder in place, mild distention, munoz in place h/h stable- monitor for emesis- NG if persists may have sips/popsocles, leave munoz for now. to floor when ok with medical/ ICU team Subjective see a/p Results & Data Vital Signs (Past 12 Hours) Vital Signs Temp Pulse Pulse Resp BP Pulse Ox 03/20/19 05:00 75 20 149/93 H 92 03/20/19 04:00 36.6 C 79 13 139/85 96 03/20/19 03:00 81 16 126/76 96 03/20/19 02:00 74 19 127/80 93 03/20/19 01:00 71 15 142/82 H 93 03/20/19 00:00 36.7 C 70 17 141/77 H 92 03/19/19 23:40 75 03/19/19 23:00 76 17 130/79 92 03/19/19 22:00 76 21 134/75 92 03/19/19 21:00 85 18 130/85 95 03/19/19 20:00 36.8 C 81 79 18 121/71 91
[2019-03-20] MEDS: ENOXAPARIN 100 MG/1ML SYR SC SCH ×2 (08:03→22:28)
[2019-03-20] MEDS: FAMOTIDINE 20 MG in SYRINGE 3 ML IV SCH ×2 (08:03→22:29)
[2019-03-20] MEDS ORDERED: PROMETHAZINE HCL 25 MG in SODIUM CHLORIDE 0.9% 50 ML IV PRN (08:25)
[2019-03-20] MEDS: MoRPHine SULFATE 10 MG/ML CARP/VIAL IV PRN ×3 (08:38→18:03)
--- NOTE | 2019-03-20 09:12 | Critical Care Progress Note ---
Date of Service March 20, 2019 Assessment & Plan (1) Abdominal pain: Neuro- awake alert. pain control CV- HD stable. Pulmonary- sat well on RA. incentive spirometry. OOB as soon as possible ID- abx for GI cipro/metronidazole(pcn allergy). Renal- cr ok. GI- found to have necrosis of sigmoid colon aon colonoscopy and went to or where about 10 cm of bowel was resected and colostomy was found. unclear cause. echo ok. t/c eval of abdminal vessels. increased nausea, try promethazine. may need NG replaced Heme- leukocytosis. anemia with low MCV likely iron deficiency. history of pulmonary embolism. has been on anticoagulation for 3 years. unsure she needs to continue as she had a provoked PE. per pt has had hypercoagulable workup in the past that was negative. continue enoxaparin for now as higher risk in setting of surgery Endocrine- keep blood sugars <180 Dispo- ok to transfer out of the ICU (2) Anemia: Physical Exam Physical Exam: Constitutional: uncomfortable NAD on RA HEENT: normocephalic atraumatic. MMM. CV: RRR nl s1,s2 no murmurs rubs or gallops Lungs: clear to auscultation bilaterally. no accessory muscle use Abd: soft slightly tender distended. drain with serosanginous Ext: no edema. no cyanosis, no clubbing Skin: warm dry. no rash Neuro: alert and oriented. moving all extremities Psych: normal mood and affect Results & Data Vital Signs (Past 12 Hours) Vital Signs Temp Pulse Pulse Resp BP Pulse Ox 03/20/19 06:00 71 18 157/89 H 93 03/20/19 05:00 75 20 149/93 H 92 03/20/19 04:00 36.6 C 79 13 139/85 96 03/20/19 03:00 81 16 126/76 96 03/20/19 02:00 74 19 127/80 93 03/20/19 01:00 71 15 142/82 H 93 03/20/19 00:00 36.7 C 70 17 141/77 H 92 03/19/19 23:40 75 03/19/19 23:00 76 17 130/79 92 03/19/19 22:00 76 21 134/75 92 Laboratory Results Laboratory Results - last 24 hr 07/02/0103/20/19 03/20/19 04:05 04:05 04:05 WBC 9.01 RBC 4.44 Hgb 9.4 L Hct 31.8 L MCV 71.6 L MCH 21.2 L MCHC 29.6 L RDW Std Deviation 68.6 H RDW Coeff of Omero 26.6 H Plt Count 235 MPV 9.1 ESR 39 H Sodium 140 Potassium 3.8 Chloride 108 H Carbon Dioxide 26 Anion Gap 6.0 BUN 11 Creatinine 0.75 Est Cr Clr Drug Dosing 100.8 Est GFR ( Amer) 105.5 Est GFR (Non-Af Amer) 91.0 BUN/Creatinine Ratio 14.8 Glucose 124 H Calcium 8.2 L C-Reactive Protein 8.04 H (1) Abdominal pain Abdominal location: left lower quadrant Qualified Code(s): R10.32 - Left lower quadrant pain (2) Anemia Anemia type: unspecified type Qualified Code(s): D64.9 - Anemia, unspecified
--- NOTE | 2019-03-20 09:18 | Gastroenterology Progress Note ---
Date of Service March 20, 2019 Assessment & Plan (1) Colon necrosis: Ms. Liliana Langley is a 53 yr old female with colon necrosis S/P resection with placement of a colostomy. She is doing well post operatively. Plan: Plan for OP Colonoscopy prior to reversal of the ostomy with timing to be det ermined by surgery. Will watch patient peripherally. Present on Admission?: Yes Supervising Physician Co-Signing Physician Notes I performed a history and physical examination of the patient, including specifically on physical exam - soft, nontender abdomen, colostomy with liquid s tool. I have discussed the patient's management with Naomy. Please refer to the nurse practitioner's note for the documented findings and plan of care. s/p Sigmoid colon resection with colostomy, Labs imroving. Has nausea and dilated bowel loops on KUB hence NG tube is placed back. Plan: Management post colostomy is per surgical team. She may have some postoperative ileus and would consider ambulation and a dose of Relistor if needed. Colonoscopy as OP. Recall GI if needed. Subjective Ms. Liliana Langley is a 53 yr old female admitted for abdominal pain on 03/16, underwent EGD (mild gastritis) and colonoscopy with 10cm of necrotic colon in the sigmoid followed by emergency exploratory laparotomy; resection, sigmoid colon; and colostomy on 03/18. Today: She has nausea. Pain is greatly improved with intermittent morphine dosing. Pt is drozey but easily awaken, oriented and hemodynamically stable. Colostomy bag with thin brown liquid. BS hypoactive but present. Abdomen is soft. Review of Systems Review of Systems: ROS: Gen: + weakness, no fevers Eyes: No eye redness, or pain, no recent vision changes Resp: No SOB, no cough Cardio: No palpitations/irregular beats, no chest pain GI: + surgical abdominal pain, + nausea Skin: No jaundice, itching or new rashes Physical Exam Constitutional: + ill appearing and + obese Eyes: PERRL, conjunctivae normal, anicteric sclerae ENMT: external ear and nose normal, oropharynx normal Neck: trachea midline, no thyromegaly Respiratory: normal respiratory effort, lungs clear to auscultation Cardiovascular: RRR, no murmur, no edema Gastrointestinal (Abdomen): Percussion/Palpation: abdomen soft BS hypoactive Skin: no rashes, warm and dry Neurologic: PERRL, EOMI, accommodation nl, no face palsy, no dysarthria Psychiatric: A+Ox3, euthymic affect Lymphatic: no cervical or axillary lymphadenopathy Results & Data Vital Signs (Past 12 Hours) Vital Signs Temp Pulse Pulse Resp BP Pulse Ox 03/20/19 06:00 71 18 157/89 H 93 03/20/19 05:00 75 20 149/93 H 92 03/20/19 04:00 36.6 C 79 13 139/85 96 03/20/19 03:00 81 16 126/76 96 03/20/19 02:00 74 19 127/80 93 03/20/19 01:00 71 15 142/82 H 93 03/20/19 00:00 36.7 C 70 17 141/77 H 92 03/19/19 23:40 75 03/19/19 23:00 76 17 130/79 92 03/19/19 22:00 76 21 134/75 92 Diagnostic Findings Echocardiogram with 60%EF and mild LVH, but not sufficient resolution to r/o PFO. Medications Administered ciprofloxacin/metronidazole
--- NOTE | 2019-03-20 10:00 | Surgery Progress Note ---
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 Hoffmann to cover this weekend Incentive spirometry OOb to chair today Dr. Mcnair has seen and examined pt, agrees with above Subjective not feeling good today, "I felt good yesterday" really nauseated but no vomiting. Per nurse she had Zofran throughout the night which did not alleviate her nausea. Just received 25 of IV phenergan. Also Morphine increased to 6 mg IV every 4 hours as needed for pain. was out of bed yesterday for 2 hours pain moderate at incision site and lower abdomen Physical Exam Constitutional: WD/WN, vitals as above no acute distress and not ill appearing Respiratory: normal respiratory effort; no respiratory distress Gastrointestinal (Abdomen): Inspection/Auscultation: + abdomen distended P ercussion/Palpation: + abdomen tender and abdomen soft; no guarding and abdomen not rigid Colostomy is pink with no air or stool in bag Skin: no rashes, warm and dry Psychiatric: Orientation: alert and oriented x 3 Affect: + flat affect Results & Data Vital Signs (Past 12 Hours) Vital Signs Temp Pulse Pulse Resp BP Pulse Ox 03/20/19 06:00 71 18 157/89 H 93 03/20/19 05:00 75 20 149/93 H 92 03/20/19 04:00 36.6 C 79 13 139/85 96 03/20/19 03:00 81 16 126/76 96 03/20/19 02:00 74 19 127/80 93 03/20/19 01:00 71 15 142/82 H 93 03/20/19 00:00 36.7 C 70 17 141/77 H 92 03/19/19 23:40 75 03/19/19 23:00 76 17 130/79 92 03/19/19 22:00 76 21 134/75 92 Laboratory Results 03/20/19 03/20/19 03/20/19 Range/Units 04:05 04:05 04:05 WBC 9.01 (4.8-10.8) K/uL RBC 4.44 (4.2-5.4) M/uL Hgb 9.4 L (12.0-16.0) g/dL Hct 31.8 L (37-47) % MCV 71.6 L (80-100) fL MCH 21.2 L (25-34) pg MCHC 29.6 L (32-36) g/dL RDW Std Deviation 68.6 H (36.4-46.3) fL RDW Coeff of Omero 26.6 H (11.5-14.5) % Plt Count 235 (130-400) K/uL MPV 9.1 (7.4-10.4) fL ESR 39 H (0-21) mm/hr Sodium 140 (136-145) mmol/L Potassium 3.8 (3.5-5.1) mmol/L Chloride 108 H (98-107) mmol/L Carbon Dioxide 26 (21-32) mmol/L Anion Gap 6.0 (3-11) BUN 11 (7-18) mg/dl Creatinine 0.75 (0.6-1.2) mg/dl Est Cr Clr Drug Dosing 100.8 ml/min Est GFR ( Amer) 105.5 Est GFR (Non-Af Amer) 91.0 BUN/Creatinine Ratio 14.8 (10-20) Glucose 124 H (70-99) mg/dl Calcium 8.2 L (8.5-10.1) mg/dl C-Reactive Protein 8.04 H (0-0.29) mg/dl
[2019-03-20] MEDS: METOCLOPRAMIDE HCL INJ 5 MG/ML 2 ML VIAL IV SCH ×2 (11:16→18:04)
--- NOTE | 2019-03-20 12:15 | XRay Report ---
KUB CLINICAL HISTORY: NG tube placement COMPARISON STUDY: CT of the abdomen and pelvis March 16, 2019. FINDINGS: The tip of the nasogastric tube is within the body of the stomach. Skin guillaume are partial ly imaged. Prominent loops gas-filled bowel are partially imaged. There may be trace bilateral pleura l effusions. Bibasilar opacities are present. IMPRESSION: 1. Tip of nasogastric tube projects over the body of the stomach. 2. Prominent gas-filled loops of small large bowel within visualized portions of the abdomen. 3. Bibasilar opacities and trace bilateral pleural effusions Electronically signed by: Steven Garcia M.D. 03/20/2019 12:14 PM
[2019-03-20] MEDS: NYSTATIN SUSP 500,000 U/5 ML UDC PO SCH ×3 (14:45→22:33)
--- NOTE | 2019-03-20 19:11 | Hospitalist Progress Note ---
Date of Service March 20, 2019 Assessment & Plan (1) Ischemic colitis: POD #2 - s/p emergent sigmoid resection with colostomy formation by Dr Mcnair. Etiology of ischemia uncertain. No obvious risk factors for such (tobacco use, HTN, advanced age, etc). Did NOT have hypotension at time of presentation. Was compliant with xarelto at home making embolic disease less likely. Hypercoagulable w/u for PEs in 2015 was fully negative. ECHO without source of thrombus. At some point this hospital stay will need CTA abd/pelvis to r/o PAD of abdominal vasculature. Sed rate/crp modestly elevated but not in ranges expected for vasculitis. Remains on cipro/flagyl. Agree with NG tube for ongoing nausea/abdominal distension - defer management to gen surg. Check KUB x-ray for NG tube placement. I asked nursing staff to let surgery know about EVELIA drain output. (2) Anemia: severe iron deficiency based on iron studies. this is likely chronic issue. b12/folate normal. cause of iron deficiency? biopsies taken from stomach/duodenum during EGD negative (no celiac, etc). no evidence of upper GI bleeding during EGD. will need iron replacement. Defer until gut function has normalized. CBC acceptable today; repeat in am. She is s/p 4 units PRBCs since admission. (3) Dyspnea: Echo wnl. Consider CT chest, obtain outpatient PFTs, etc Cause? (4) Pulmonary emboli: h/o such -- 2015. provoked - had the event in setting of ankle surgery. had significant PE burden in March 2015 at time of diagnosis with possible infarction as well. xarelto has been on hold since admission. VTE risk is quite high post-op. Thus, she is on lovenox bridge 100mg q12h. (5) Gastritis: as seen on EGD H2 Flip IV (6) Candidiasis of mouth and esophagus: nystatin 5cc qid swish and spit (7) DVT prophylaxis: lovenox 100mg q12h sister updated today ok to go to tele unit today Subjective patient had worsening nausea this am and abdominal distension requiring additional anti-emetics. she ultimately had NG tube placed back. during my visit she felt very poorly. had not been out of bed yet. staff report copious drainage from the EVELIA drain - serous fluid only. no stool or flatus via osteomy yet. denies any dyspnea. tele normal overnight. Review of Systems Constitutional: no fever Cardiovascular: no chest pain Gastrointestinal: + abdominal pain and + nausea Physical Exam Constitutional: + acute distress (looks uncomfortable ) and + obese; no altered mental status ENMT: Mouth: + tongue abnormality (thrush plaques now present) Respiratory: normal respiratory effort, lungs clear to auscultation no respiratory distress Auscultation: + diminished lung sounds (bases) Cardiovascular: Rate/Rhythm: regular rate and regular rhythm Heart Sounds: normal S1 and normal S2; no murmur Vessels: posterior tibial pulses present and dorsalis pedis pulses present; no JVD Gastrointestinal (Abdomen): Inspection/Auscultation: + abdomen distended; + abnormal bowel sounds (decreased but improved relative to yesterday's exam) Percussion/Palpation: no hepatosplenomegaly EVELIA drain in place - copious yello w fluid present. ostomy bag in place - no gas/air in bag. abdominal dressings and binder in place. Psychiatric: Orientation: alert and oriented x 3 Affect: + flat affect Results & Data Vital Signs (Past 12 Hours) Vital Signs Temp Pulse Resp BP Pulse Ox 03/20/19 18:00 76 16 149/95 H 95 03/20/19 17:00 81 18 144/85 H 94 03/20/19 16:00 37.0 C 82 23 158/81 H 92 03/20/19 15:00 78 17 159/101 H 94 03/20/19 14:00 80 21 164/99 H 94 03/20/19 13:00 75 18 161/97 H 93 03/20/19 12:00 36.8 C 78 24 166/90 H 94 03/20/19 11:00 74 18 170/92 H 95 03/20/19 10:00 82 18 152/101 H 95 03/20/19 09:00 73 19 168/93 H 93 03/20/19 08:00 76 22 159/85 H 91 Laboratory Results Laboratory Results - last 24 hr 03/20/19 03/20/19 03/20/19 04:05 04:05 04:05 WBC 9.01 RBC 4.44 Hgb 9.4 L Hct 31.8 L MCV 71.6 L MCH 21.2 L MCHC 29.6 L RDW Std Deviation 68.6 H RDW Coeff of Omero 26.6 H Plt Count 235 MPV 9.1 ESR 39 H Sodium 140 Potassium 3.8 Chloride 108 H Carbon Dioxide 26 Anion Gap 6.0 BUN 11 Creatinine 0.75 Est Cr Clr Drug Dosing 100.8 Est GFR ( Amer) 105.5 Est GFR (Non-Af Amer) 91.0 BUN/Creatinine Ratio 14.8 Glucose 124 H Calcium 8.2 L C-Reactive Protein 8.04 H Fluid Creatinine 03/20/19 18:00 WBC RBC Hgb Hct MCV MCH MCHC RDW Std Deviation RDW Coeff of Omero Plt Count MPV ESR Sodium Potassium Chloride Carbon Dioxide Anion Gap BUN Creatinine Est Cr Clr Drug Dosing Est GFR ( Amer) Est GFR (Non-Af Amer) BUN/Creatinine Ratio Glucose Calcium C-Reactive Protein Fluid Creatinine 0.71 PG Care Time/CCT Total # of Minutes Spent Total Time Spent with Patient: Total time spent is greater than 50% in coordination of care (as documented) at patient's floor/unit and/or counseling patient: (1) Anemia Anemia type: unspecified type Qualified Code(s): D64.9 - Anemia, unspecified (2) Dyspnea Dyspnea type: dyspnea on exertion Qualified Code(s): R06.09 - Other forms of dyspnea (3) Gastritis Chronicity: unspecified Gastritis bleeding: without bleeding Gastritis type: unspecified gastritis Qualified Code(s): K29.70 - Gastritis, unspecified, without bleeding (4) Pulmonary emboli Acute cor pulmonale presence: without acute cor pulmonale Chronicity: unspecified Pulmonary embolism type: unspecified Qualified Code(s): I26.99 - Other pulmonary embolism without acute cor pulmonale
[2019-03-21] MEDS: metroNIDAZOLE 500 MG/100 ML BAG IV SCH ×3 (01:19→16:35)
[2019-03-21] MEDS: METOCLOPRAMIDE HCL INJ 5 MG/ML 2 ML VIAL IV SCH (02:23)
[2019-03-21] MEDS: CIPROFLOXACIN 400 MG/200 ML BAG IV SCH ×2 (04:29→16:35)
[2019-03-21 06:29] LABS: Basophils # (auto) 0.01 K/uL (0-0.2); Basophils % (auto) 0.1 %; Eosinophils # (auto) 0.07 K/uL (0-0.5); Eosinophils % (auto) 0.8 %; Hematocrit (blood only) 38.9 % (37-47); Hemoglobin 11.7 g/dL (12.0-16.0); Immature Granulocytes # (auto) 0.02 K/uL (0.00-0.02); Immature Granulocytes % (auto) 0.2 %; Lymphocytes # (auto) 1.08 K/uL (1.2-3.4); Mean Corpuscular Hgb Conc 30.1 g/dL (32-36); Mean Corpuscular Volume 73.1 fL (80-100); Mean Platelet Volume 9.1 fL (7.4-10.4); Monocytes # (auto) 0.77 K/uL (0.11-0.59); Monocytes % (auto) 8.5 %; Neutrophils # (auto) 7.08 K/uL (1.4-6.5); Neutrophils % (auto) 78.4 %; Platelet Count 265 K/uL (130-400); RDW Coefficient of Variation 27.5 % (11.5-14.5); RDW Standard Deviation 71.4 fL (36.4-46.3); Red Blood Count 5.32 M/uL (4.2-5.4); White Blood Count 9.03 K/uL (4.8-10.8)
[2019-03-21 07:04] LABS: BUN Creatinine Ratio 14.1 (10-20); Creatinine Clr Calc Pharmacy 100.5 ml/min; Est GFR (African American) 103.8; Est GFR (Non-African American) 89.6; Potassium 3.9 mmol/L (3.5-5.1)
[2019-03-21 07:16] LABS: Anisocytosis Present; Hypochromasia Present; Poikilocytosis Present; Schistocytes 1+
[2019-03-21] MEDS: FAMOTIDINE 20 MG in SYRINGE 3 ML IV SCH ×2 (08:01→22:06)
[2019-03-21] MEDS: ENOXAPARIN 100 MG/1ML SYR SC SCH ×2 (08:01→22:07)
[2019-03-21] MEDS: NYSTATIN SUSP 500,000 U/5 ML UDC PO SCH ×4 (08:01→22:09)
--- NOTE | 2019-03-21 11:29 | Progress Note ---
Date of Service March 21, 2019 Assessment & Plan (1) Colon necrosis: awake, alert- seems to feel a little better than yesterday good ur output, NG- min out, drain serous- likely from ileus no significant changes in mgt- needs to walk in hallway if possible Subjective see a/p Results & Data Vital Signs (Past 12 Hours) Vital Signs Temp Pulse Pulse Pulse Resp BP Pulse Ox 03/21/19 08:05 36.9 C 77 20 145/85 H 96 03/21/19 07:28 77 03/21/19 03:10 37.1 C 75 20 157/92 H 98 03/21/19 00:05 36.9 C 78 19 172/92 H 98
[2019-03-21] MEDS: D5NSS + 20MEQ KCL 20 MEQ/1,000 ML BAG IV SCH (12:49)
[2019-03-21] MEDS: MoRPHine SULFATE 10 MG/ML CARP/VIAL IV PRN ×2 (15:41→21:49)
--- NOTE | 2019-03-21 16:13 | XRay Report ---
XR chest 1V portable HISTORY: 53 years-old Female dyspnea, eval for acute process acute shortness of breath COMPARISON: Chest radiograph 03/17/2019 TECHNIQUE: Portable AP view of the chest FINDINGS: Cardiac silhouette is enlarged, unchanged. Decreased pulmonary edema. And trace bilateral pleural eff usions with subsegmental bibasilar opacities. Calcification of the thoracic aortic arch. No pneumotho rax. Enteric tube distal tip projects over the abdominal left upper quadrant within the expected loca tion of the mid gastric lumen. Degenerative changes of the shoulders and spine. IMPRESSION: 1. Cardiomegaly with decreased pulmonary edema. 2. Trace pleural effusions subsegmental bibasilar opacities suggestive of atelectasis. The above report was generated using voice recognition software. It may contain grammatical, syntax o r spelling errors. Electronically signed by: Koko Clements M.D. 03/21/2019 4:12 PM
--- NOTE | 2019-03-21 18:11 | Hospitalist Progress Note ---
Date of Service March 21, 2019 Assessment & Plan (1) Ischemic colitis: POD #3 - s/p emergent sigmoid resection with colostomy formation by Dr Mcnair. Etiology of ischemia uncertain. No obvious risk factors for such (tobacco use, HTN, advanced age, etc). Did NOT have hypotension at time of presentation. Was compliant with xarelto at home making embolic disease less likely. Hypercoagulable w/u for PEs in 2015 was fully negative. ECHO without source of thrombus. Will need CTA abd/pelvis to r/o PAD of abdominal vasculature prior to d/c. Sed rate/crp modestly elevated but not in ranges expected for vasculitis. Remains on cipro/flagyl. NG tube in place; awaiting samaritan of bowel function. Appreciate general surgery input. (2) Anemia: severe iron deficiency based on iron studies. this is likely chronic issue. b12/folate normal. cause of iron deficiency? biopsies taken from stomach/duodenum during EGD negative (no celiac, etc). no evidence of upper GI bleeding during EGD. will need iron replacement. Defer until gut function has normalized. H/H stable. She is s/p 4 units PRBCs since admission. (3) Dyspnea: Echo wnl. Repeat cxr today stable. Atelectasis seen. No pneumonia or edema. Needs aggressive pulmonary toilet and incentive spirometry. (4) Pulmonary emboli: h/o such -- 2015. provoked - had the event in setting of ankle surgery. had significant PE burden in March 2015 at time of diagnosis with possible infarction as well. xarelto has been on hold since admission. VTE risk is quite high post-op. Thus, she is on lovenox bridge 100mg q12h. Continue lovenox. (5) Gastritis: as seen on EGD H2 Flip IV (6) Candidiasis of mouth and esophagus: nystatin 5cc qid swish and spit (7) DVT prophylaxis: lovenox 100mg q12h updated at bedside today Subjective bilious output via NG tube abd distension remains no flatus via ostomy had episode this afternoon of "feeling like she was drowning" she had tried to blow her nose and then felt mucous go down the back of her throat Review of Systems Constitutional: no fever Respiratory: + dyspnea; no cough and no wheezing Cardiovascular: no chest pain Gastrointestinal: + abdominal pain; no nausea and no vomiting Physical Exam Constitutional: + obese; no altered mental status looks better today and looks comfortable ENMT: Mouth: + tongue abnormality (thrush plaques) NG tube in place Respiratory: normal respiratory effort, lungs clear to auscultation no respiratory distress Auscultation: + diminished lung sounds (bases - worse than yesterday) Cardiovascular: Rate/Rhythm: regular rate and regular rhythm Heart Sounds: normal S1 and normal S2; no murmur Vessels: posterior tibial pulses present and dorsalis pedis pulses present; no JVD Gastrointestinal (Abdomen): Inspection/Auscultation: + abdomen distended; + abnormal bowel sounds (decreased but improved relative to yesterday's exam) Percussion/Palpation: abdomen nontender and no hepatosplenomegaly abd binder in place; ostomy bag with minimal clear fluid; EVELIA drain with serous fluid; dressings intact Psychiatric: A+Ox3, euthymic affect Results & Data Vital Signs (Past 12 Hours) Vital Signs Temp Pulse Pulse Resp BP Pulse Ox 03/21/19 16:19 36.8 C 72 20 145/78 H 94 03/21/19 16:00 74 03/21/19 11:52 36.9 C 77 20 137/81 97 03/21/19 08:05 36.9 C 77 20 145/85 H 96 03/21/19 07:28 77 Laboratory Results Laboratory Results - last 24 hr 03/20/19 03/20/19 03/21/19 18:00 23:39 05:51 WBC 9.03 RBC 5.32 Hgb 11.7 L Hct 38.9 MCV 73.1 L MCH 22.0 L MCHC 30.1 L RDW Std Deviation 71.4 H RDW Coeff of Omero 27.5 H Plt Count 265 MPV 9.1 Immature Gran % (Auto) 0.2 Neut % (Auto) 78.4 Lymph % (Auto) 12.0 Morrill % (Auto) 8.5 Eos % (Auto) 0.8 Baso % (Auto) 0.1 Immature Gran # (Auto) 0.02 Neut # (Auto) 7.08 H Lymph # (Auto) 1.08 L Morrill # (Auto) 0.77 H Eos # (Auto) 0.07 Baso # (Auto) 0.01 Hypochromasia Present Poikilocytosis Present Anisocytosis Present Schistocytes 1+ Sodium Potassium Chloride Carbon Dioxide Anion Gap BUN Creatinine Est Cr Clr Drug Dosing Est GFR ( Amer) Est GFR (Non-Af Amer) BUN/Creatinine Ratio Glucose POC Glucose 129 H Calcium Fluid Creatinine 0.71 03/21/19 03/21/19 03/21/19 05:51 07:31 11:37 WBC RBC Hgb Hct MCV MCH MCHC RDW Std Deviation RDW Coeff of Omero Plt Count MPV Immature Gran % (Auto) Neut % (Auto) Lymph % (Auto) Morrill % (Auto) Eos % (Auto) Baso % (Auto) Immature Gran # (Auto) Neut # (Auto) Lymph # (Auto) Morrill # (Auto) Eos # (Auto) Baso # (Auto) Hypochromasia Poikilocytosis Anisocytosis Schistocytes Sodium 140 Potassium 3.9 Chloride 109 H Carbon Dioxide 26 Anion Gap 5.0 BUN 11 Creatinine 0.76 Est Cr Clr Drug Dosing 100.5 Est GFR ( Amer) 103.8 Est GFR (Non-Af Amer) 89.6 BUN/Creatinine Ratio 14.1 Glucose 165 H POC Glucose 121 H 136 H Calcium 8.0 L Fluid Creatinine 03/21/19 17:42 WBC RBC Hgb Hct MCV MCH MCHC RDW Std Deviation RDW Coeff of Omero Plt Count MPV Immature Gran % (Auto) Neut % (Auto) Lymph % (Auto) Morrill % (Auto) Eos % (Auto) Baso % (Auto) Immature Gran # (Auto) Neut # (Auto) Lymph # (Auto) Morrill # (Auto) Eos # (Auto) Baso # (Auto) Hypochromasia Poikilocytosis Anisocytosis Schistocytes Sodium Potassium Chloride Carbon Dioxide Anion Gap BUN Creatinine Est Cr Clr Drug Dosing Est GFR ( Amer) Est GFR (Non-Af Amer) BUN/Creatinine Ratio Glucose POC Glucose 115 H Calcium Fluid Creatinine PG Care Time/CCT Total # of Minutes Spent Total Time Spent with Patient: Total time spent is greater than 50% in coordination of care (as documented) at patient's floor/unit and/or counseling patient: (1) Anemia Anemia type: unspecified type Qualified Code(s): D64.9 - Anemia, unspecified (2) Dyspnea Dyspnea type: dyspnea on exertion Qualified Code(s): R06.09 - Other forms of dyspnea (3) Pulmonary emboli Pulmonary embolism type: unspecified Chronicity: unspecified Acute cor pulmonale presence: without acute cor pulmonale Qualified Code(s): I26.99 - Other pulmonary embolism without acute cor pulmonale (4) Gastritis Gastritis type: unspecified gastritis Chronicity: unspecified Gastritis bleeding: without bleeding Qualified Code(s): K29.70 - Gastritis, unspecified, without bleeding
[2019-03-21] MEDS: ONDANSETRON INJ 2 MG/ML 2 ML VIAL IV PRN (21:58)
[2019-03-22] MEDS: metroNIDAZOLE 500 MG/100 ML BAG IV SCH ×3 (00:51→18:20)
[2019-03-22] MEDS: MoRPHine SULFATE 10 MG/ML CARP/VIAL IV PRN ×3 (04:05→21:17)
[2019-03-22] MEDS: D5NSS + 20MEQ KCL 20 MEQ/1,000 ML BAG IV SCH ×2 (04:27→18:23)
[2019-03-22] MEDS: CIPROFLOXACIN 400 MG/200 ML BAG IV SCH ×2 (04:28→16:23)
[2019-03-22 06:58] LABS: Hematocrit (blood only) 35.7 % (37-47); Hemoglobin 10.5 g/dL (12.0-16.0); Mean Corpuscular Hgb Conc 29.4 g/dL (32-36); Mean Corpuscular Volume 74.2 fL (80-100); Platelet Count 237 K/uL (130-400); RDW Coefficient of Variation 27.8 % (11.5-14.5); RDW Standard Deviation 72.9 fL (36.4-46.3); Red Blood Count 4.81 M/uL (4.2-5.4); White Blood Count 7.59 K/uL (4.8-10.8)
--- NOTE | 2019-03-22 07:20 | Progress Note ---
Date of Service March 22, 2019 Assessment & Plan (1) Colon necrosis: vitals stable, H/H ok much more awake this am, min NG output has some colostomy output clamp NG, try sips, popsicles prob leave NG until tomorrow- Dr Mcnair back [employer] Subjective see a/p Results & Data Vital Signs (Past 12 Hours) Vital Signs Temp Pulse Pulse Resp BP Pulse Ox 03/22/19 03:59 36.6 C 67 20 155/91 H 97 03/22/19 00:00 36.7 C 86 19 152/86 H 98 03/21/19 23:42 65 03/21/19 19:35 36.7 C 68 18 143/83 H 99
[2019-03-22 07:25] LABS: BUN Creatinine Ratio 14.2 (10-20); Calcium 8.1 mg/dl (8.5-10.1); Creatinine Clr Calc Pharmacy 119.7 ml/min; Est GFR (African American) 118.7; Est GFR (Non-African American) 102.4; Potassium 3.9 mmol/L (3.5-5.1)
[2019-03-22] MEDS: NYSTATIN SUSP 500,000 U/5 ML UDC PO SCH ×4 (07:38→21:23)
[2019-03-22] MEDS: ENOXAPARIN 100 MG/1ML SYR SC SCH ×2 (07:38→21:20)
[2019-03-22] MEDS: FAMOTIDINE 20 MG in SYRINGE 3 ML IV SCH ×2 (09:29→21:26)
--- NOTE | 2019-03-22 12:39 | Hospitalist Progress Note ---
Date of Service March 22, 2019 Assessment & Plan (1) Ischemic colitis: POD #4 - s/p emergent sigmoid resection with colostomy formation by Dr Mcnair. Etiology of ischemia uncertain. No obvious risk factors for such (tobacco use, HTN, advanced age, etc). Did NOT have hypotension at time of presentation. Was compliant with xarelto at home making embolic disease less likely. Hypercoagulable w/u for PEs in 2015 was fully negative. ECHO without source of thrombus. Will need CTA abd/pelvis to r/o PAD of abdominal vasculature prior to d/c. Sed rate/crp modestly elevated but not in ranges expected for vasculitis. Remains on cipro/flagyl. Continue for now per surgery. NG tube in place; clamped by Dr Hoffmann today. He is allowing sips of clears today. Continue IV fluid. Bowel function slowly improving. Appreciate general surgery input and recommendations. Follow-up on pathology on Saturday from the hemicolectomy. (2) Anemia: severe iron deficiency based on iron studies. this is likely chronic issue. b12/folate normal. cause of iron deficiency? biopsies taken from stomach/duodenum during EGD negative (no celiac, etc). no evidence of upper GI bleeding during EGD. will need iron replacement. Defer until gut function has normalized and she is taking PO. H/H stable. She is s/p 4 units PRBCs since admission. (3) Dyspnea: Echo wnl. Repeat cxr yesterday stable. Atelectasis seen. No pneumonia or edema. Needs aggressive pulmonary toilet and incentive spirometry along with ambulation. (4) Pulmonary emboli: h/o such -- 2015. provoked - had the event in setting of ankle surgery. had significant PE burden in March 2015 at time of diagnosis with possible infarction as well. xarelto has been on hold since admission. VTE risk is quite high post-op. Thus, she is on lovenox bridge 100mg q12h. Continue lovenox. Resume xarelto in dmitri of lovenox when taking PO. (5) Gastritis: as seen on EGD H2 Flip IV (6) Candidiasis of mouth and esophagus: nystatin 5cc qid swish and spit improving (7) DVT prophylaxis: lovenox 100mg q12h d/c tele move to med/surg now that NG tube is clamped (and hopefully it will be d/c tomorrow) consult PT/OT left message for on voicemail 03/22/19 care also d/w Dr Hoffmann today Subjective patient feels better today. less abdominal distension. passing gas and some fluid via ostomy. less NG tube output. Dr Hoffmann placed her on sips of clears and popcicles. no respiratory complaints today. Review of Systems Constitutional: no fever and no chills Respiratory: no cough and no dyspnea Cardiovascular: no chest pain Gastrointestinal: + abdominal pain (but improved today) Physical Exam Constitutional: + obese; no altered mental status ENMT: Mouth: + tongue abnormality (thrush plaques but improved; geographic tongue) Respiratory: normal respiratory effort, lungs clear to auscultation no respiratory distress Auscultation: + diminished lung sounds (bases - similar to yesterday) Cardiovascular: Rate/Rhythm: regular rate and regular rhythm Heart Sounds: normal S1 and normal S2; no murmur Vessels: posterior tibial pulses present and dorsalis pedis pulses present; no JVD Gastrointestinal (Abdomen): Inspection/Auscultation: + abdomen distended (but improved today) and normal bowel sounds Percussion/Palpation: abdomen nontender and no hepatosplenomegaly EVELIA drain with clear yellow serous fluid; ostomy bag w/ improved gas and liquid in bag; dressings in place Psychiatric: A+Ox3, euthymic affect Results & Data Vital Signs (Past 12 Hours) Vital Signs Temp Pulse Resp BP Pulse Ox 03/22/19 11:44 36.7 C 66 18 116/72 95 03/22/19 07:44 36.9 C 63 18 128/76 98 03/22/19 03:59 36.6 C 67 20 155/91 H 97 Laboratory Results Laboratory Results - last 24 hr 03/21/19 03/22/19 03/22/19 17:42 00:44 06:14 WBC RBC Hgb Hct MCV MCH MCHC RDW Std Deviation RDW Coeff of Omero Plt Count MPV Sodium Potassium Chloride Carbon Dioxide Anion Gap BUN Creatinine Est Cr Clr Drug Dosing Est GFR ( Amer) Est GFR (Non-Af Amer) BUN/Creatinine Ratio Glucose POC Glucose 115 H 137 H 130 H Calcium 03/22/19 03/22/19 03/22/19 06:38 06:38 11:20 WBC 7.59 RBC 4.81 Hgb 10.5 L Hct 35.7 L MCV 74.2 L MCH 21.8 L MCHC 29.4 L RDW Std Deviation 72.9 H RDW Coeff of Omero 27.8 H Plt Count 237 MPV 9.0 Sodium 139 Potassium 3.9 Chloride 106 Carbon Dioxide 29 Anion Gap 4.0 BUN 9 Creatinine 0.63 Est Cr Clr Drug Dosing 119.7 Est GFR ( Amer) 118.7 Est GFR (Non-Af Amer) 102.4 BUN/Creatinine Ratio 14.2 Glucose 135 H POC Glucose 108 H Calcium 8.1 L PG Care Time/CCT Total # of Minutes Spent Total Time Spent with Patient: Total time spent is greater than 50% in coordination of care (as documented) at patient's floor/unit and/or counseling patient: (1) Anemia Anemia type: unspecified type Qualified Code(s): D64.9 - Anemia, unspecified (2) Dyspnea Dyspnea type: dyspnea on exertion Qualified Code(s): R06.09 - Other forms of dyspnea (3) Gastritis Chronicity: unspecified Gastritis bleeding: without bleeding Gastritis type: unspecified gastritis Qualified Code(s): K29.70 - Gastritis, unspecified, without bleeding (4) Pulmonary emboli Acute cor pulmonale presence: without acute cor pulmonale Chronicity: unspecified Pulmonary embolism type: unspecified Qualified Code(s): I26.99 - Other pulmonary embolism without acute cor pulmonale
[2019-03-23] MEDS: metroNIDAZOLE 500 MG/100 ML BAG IV SCH ×3 (00:20→16:32)
[2019-03-23] MEDS: CIPROFLOXACIN 400 MG/200 ML BAG IV SCH ×2 (04:05→17:25)
[2019-03-23 07:04] LABS: Est GFR (Non-African American) 105.2; Magnesium 2.1 mg/dl (1.8-2.4); Phosphorus 3.2 mg/dl (2.5-4.9)
[2019-03-23] MEDS: D5NSS + 20MEQ KCL 20 MEQ/1,000 ML BAG IV SCH ×2 (08:03→21:20)
--- NOTE | 2019-03-23 08:38 | Hospitalist Progress Note ---
Date of Service March 23, 2019 Assessment & Plan (1) Ischemic colitis: s/p emergent sigmoid resection with colostomy formation by Dr Mcnair 03/18/19. Etiology of ischemia uncertain. No obvious risk factors for such (tobacco use, HTN, advanced age, etc). Did NOT have hypotension at time of presentation. Was compliant with xarelto at home Hypercoagulable w/u for PEs in 2014 was fully negative. ECHO without source of thrombus. Will need CTA abd/pelvis to r/o PAD of abdominal vasculature prior to d/c. Sed rate/crp modestly elevated but not in ranges expected for vasculitis. Remains on cipro/flagyl. Continue for now per surgery. NG tube in place; clamped by Dr Hoffmann 03/22 surgery is managing diet advancement Bowel function slowly improving. Appreciate general surgery input and recommendations. path pending from OR (2) Anemia: severe iron deficiency based on iron studies. this is likely chronic issue. b12/folate normal. cause of iron deficiency? biopsies taken from stomach/duodenum during EGD negative (no celiac, etc). no evidence of upper GI bleeding during EGD. will need iron replacement. Defer until gut function has normalized and she is taking PO. H/H stable. She is s/p 4 units PRBCs since admission. (3) Dyspnea: Echo wnl. Repeat cxr 03/21 stable. Atelectasis seen. No pneumonia or edema. Continue with aggressive pulmonary toilet and incentive spirometry along with ambulation. (4) Pulmonary emboli: h/o such -- 2015. provoked - had the event in setting of ankle surgery. had significant PE burden in March 2015 at time of diagnosis with possible infarction as well. xarelto has been on hold since admission. VTE risk is quite high post-op. Thus, she is on lovenox bridge 100mg q12h. Continue lovenox. Resume xarelto in dmitri of lovenox when taking PO. (5) Gastritis: as seen on EGD H2 Flip IV (6) Candidiasis of mouth and esophagus: nystatin 5cc qid swish and spit improving (7) DVT prophylaxis: lovenox 100mg q12h consult PT/OT Subjective Patient's pain is controlled she is slightly sedated she is an NG tube in place surgery is managing advancement of her diet. Her abdominal pain is controlled Review of Systems Review of Systems: ROS: She is well-appearing in regards to her development however she is uncomfortable given her NG tube No double vision blurry vision No problems with speech or swallowing No palpitations, chest pain or pressure No Wheezing or breathing issues Mild abdominal pain with nausea but no vomiting has had no stool production in her colostomy but has had gas No burning urine urine frequency or changes in color No focal joint pain or muscle pain No skin rashes or oral lesions No unusual bruising or bleeding No focused back pain or numbness or loss of strength No changes in memory or confusion Physical Exam 2 Physical Exam: The patient appeared well nourished but mild distress Vital signs as documented. Head exam is unremarkable. normocephalic, atraumatic NG tube is in her left nare Neck is without jugular venous distension, thyromegaly, or lymphademopathy Lungs are clear to auscultation and percussion. Cardiac exam reveals Rhythm is regular. First and second heart sounds normal. Abdominal exam reveals normal active bowel sounds, mildly tender to examination Extremities are nonedematous and both pedal pulses are present Neurologic exam is A&Ox3, no focal deficits, strength is equal bilateral Psychologically seems anxious about her test results Skin is warm Dry without bruises or lesions Results & Data Vital Signs (Past 12 Hours) Vital Signs Temp Pulse Resp BP Pulse Ox 03/23/19 07:00 36.9 C 66 16 119/80 93 03/22/19 23:35 36.9 C 67 16 125/76 95 PG Care Time/CCT Total # of Minutes Spent Total Time Spent with Patient: Total time spent is greater than 50% in coordination of care (as documented) at patient's floor/unit and/or counseling patient: (1) Anemia Anemia type: unspecified type Qualified Code(s): D64.9 - Anemia, unspecified (2) Dyspnea Dyspnea type: dyspnea on exertion Qualified Code(s): R06.09 - Other forms of dyspnea (3) Gastritis Chronicity: unspecified Gastritis bleeding: without bleeding Gastritis type: unspecified gastritis Qualified Code(s): K29.70 - Gastritis, unspecified, without bleeding (4) Pulmonary emboli Acute cor pulmonale presence: without acute cor pulmonale Chronicity: unspecified Pulmonary embolism type: unspecified Qualified Code(s): I26.99 - Other pulmonary embolism without acute cor pulmonale
--- NOTE | 2019-03-23 08:52 | Surgery Progress Note ---
Date of Service pt is doing fine, colostomy is working now, pt denies significant abdominal pain, no nausea, no vomiting, no fever, HORACIO 220ml, NG 250ml March 23, 2019 Assessment & Plan (1) Colon necrosis: POD # 2 s/p ex lap, sigmoid resection for ischemic colitis and end colostomy - leukocytosis resolved - vitals stable, afebrile - hemoglobin stable at 9.4 (9.7 yesterday) - Moderate nausea and pain - abdominal distention with no ostomy output Plan: given increasing nausea and distention, place NGT to LIS Keep NPO Continue IV morphine prn pain, could consider SHOW HOST/HOSTESS if pain not controlled with intermittent Morphine continue IV fluids Will start IV reglan 10 mg IV q 8 hours for 1 day continue horacio drain to bulb suction Binder when OOB, may remove in bed if too much pain/discomfort Continue SCDs and Lovenox for DVT prophylaxis Continue Pepcid for GI prophyalxis Dr. Hoffmann to cover this weekend Incentive spirometry OOb to chair today Dr. Mcnair has seen and examined pt, agrees with above 03/23/2019 8:57AM doing fine, D/C munoz, pull out NG today after noon, then clear diet, resume Xarelto 20 mg po afternoon, PT will F/U Subjective patient feels better today. less abdominal distension. passing gas and some fluid via ostomy. less NG tube output. Dr Hoffmann placed her on sips of clears and popcicles. no respiratory complaints today. Physical Exam Constitutional: WD/WN, vitals as above Neck: trachea midline, no thyromegaly Respiratory: normal respiratory effort, lungs clear to auscultation normal respiratory effort Cardiovascular: RRR, no murmur, no edema Rate/Rhythm: regular rhythm Gastrointestinal (Abdomen): Percussion/Palpation: abdomen soft no distend, no tenderness, BS +, colostomy is working, some stool in bag, Musculoskeletal: no cyanosis or clubbing, extremities motor strength 5/5 no tenderness or edema on lower legs, Neurologic: patellar DTR's 2+ bilat, sensation intact Psychiatric: Orientation: alert and oriented x 3 Results & Data Vital Signs (Past 12 Hours) Vital Signs Temp Pulse Resp BP Pulse Ox 03/23/19 07:00 36.9 C 66 16 119/80 93 03/22/19 23:35 36.9 C 67 16 125/76 95 Laboratory Results Abnormal lab results 03/22/19 03/22/19 03/23/19 Range/Units 11:20 18:54 06:17 Creatinine 0.58 L (0.6-1.2) mg/dl Glucose 140 H (70-99) mg/dl POC Glucose 108 H 111 H (70-99) Calcium 8.0 L (8.5-10.1) mg/dl
[2019-03-23] MEDS: MoRPHine SULFATE 10 MG/ML CARP/VIAL IV PRN ×2 (09:30→22:50)
[2019-03-23] MEDS: FAMOTIDINE 20 MG in SYRINGE 3 ML IV SCH ×2 (09:30→21:20)
[2019-03-23] MEDS: ENOXAPARIN 100 MG/1ML SYR SC SCH (09:52)
[2019-03-23] MEDS: NYSTATIN SUSP 500,000 U/5 ML UDC PO SCH ×4 (09:54→21:20)
[2019-03-23] MEDS ORDERED: Nursing to Pharmacy Communication ONE (12:33)
[2019-03-23] MEDS ORDERED: ENOXAPARIN 100 MG/1ML SYR SC ONE (13:00)
[2019-03-23] MEDS: OXYCODONE/ACETAMINOPHEN 5mg/325mg TAB PO PRN ×3 (13:12→21:21)
[2019-03-23] MEDS: RIVAROXABAN 20 MG TAB PO SCH (21:21)
[2019-03-24] MEDS: metroNIDAZOLE 500 MG/100 ML BAG IV SCH ×4 (00:03→23:32)
[2019-03-24] MEDS: CIPROFLOXACIN 400 MG/200 ML BAG IV SCH ×2 (03:48→15:45)
[2019-03-24 05:38] LABS: Hematocrit (blood only) 35.4 % (37-47); Hemoglobin 10.6 g/dL (12.0-16.0); Mean Corpuscular Hgb Conc 29.9 g/dL (32-36); Mean Corpuscular Volume 73.3 fL (80-100); Mean Platelet Volume 9.3 fL (7.4-10.4); Platelet Count 263 K/uL (130-400); RDW Coefficient of Variation 27.7 % (11.5-14.5); RDW Standard Deviation 72.6 fL (36.4-46.3); Red Blood Count 4.83 M/uL (4.2-5.4); White Blood Count 7.39 K/uL (4.8-10.8)
[2019-03-24 06:04] LABS: Creatinine Clr Calc Pharmacy 107.7 ml/min; Est GFR (African American) 114.6; Est GFR (Non-African American) 98.9
[2019-03-24] MEDS: NYSTATIN SUSP 500,000 U/5 ML UDC PO SCH ×4 (07:42→20:21)
[2019-03-24] MEDS: FAMOTIDINE 20 MG in SYRINGE 3 ML IV SCH ×2 (09:03→20:28)
[2019-03-24] MEDS: OXYCODONE/ACETAMINOPHEN 5mg/325mg TAB PO PRN (09:03)
[2019-03-24] MEDS: D5NSS + 20MEQ KCL 20 MEQ/1,000 ML BAG IV SCH (11:44)
--- NOTE | 2019-03-24 12:16 | Surgery Progress Note ---
Date of Service pt is doing fine, no abdominal pain, she tolerated clear diet, no nausea, no vomiting, colostomy is working well, HORACIO 360ml yellow color, pt denies back pain, March 24, 2019 Assessment & Plan (1) Colon necrosis: POD # 2 s/p ex lap, sigmoid resection for ischemic colitis and end colostomy - leukocytosis resolved - vitals stable, afebrile - hemoglobin stable at 9.4 (9.7 yesterday) - Moderate nausea and pain - abdominal distention with no ostomy output Plan: given increasing nausea and distention, place NGT to LIS Keep NPO Continue IV morphine prn pain, could consider SENIOR [employer]INICAL DATA ANALYST if pain not controlled with intermittent Morphine continue IV fluids Will start IV reglan 10 mg IV q 8 hours for 1 day continue horacio drain to bulb suction Binder when OOB, may remove in bed if too much pain/discomfort Continue SCDs and Lovenox for DVT prophylaxis Continue Pepcid for GI prophyalxis Dr. Hoffmann to cover this weekend Incentive spirometry OOb to chair today Dr. Mcnair has seen and examined pt, agrees with above 03/23/2019 8:57AM doing fine, D/C munoz, pull out NG today after noon, then clear diet, resume Xarelto 20 mg po afternoon, PT will F/U 03/24/2019 12:19PM pt is doing fine regular diet, base on HORACIO drainage 360ml/day, yellow color, in oder to R/O injury urate, order HORACIO fluid to chest creatinine, U/S study for kidney, I inform pt about possibility injury urate during surgery for inflammation and ischemia of sigmoid colon, pt understood, she agrees with the studies. will F/U Subjective Patient's pain is controlled she is slightly sedated she is an NG tube in place surgery is managing advancement of her diet. Her abdominal pain is controlled Physical Exam Constitutional: WD/WN, vitals as above well developed and well nourished Neck: trachea midline, no thyromegaly Respiratory: normal respiratory effort, lungs clear to auscultation Cardiovascular: RRR, no murmur, no edema Rate/Rhythm: regular rate and regular rhythm Gastrointestinal (Abdomen): Percussion/Palpation: abdomen soft incision intact, no redness, no drainage, NT, NDcolostomy is working, Neurologic: awake Psychiatric: Orientation: alert and oriented x 3 Results & Data Vital Signs (Past 12 Hours) Vital Signs Temp Pulse Resp BP Pulse Ox 03/24/19 07:10 36.9 C 67 15 122/78 93 Laboratory Results Abnormal lab results 03/24/19 Range/Units 05:26 Hgb 10.6 L (12.0-16.0) g/dL Hct 35.4 L (37-47) % MCV 73.3 L (80-100) fL MCH 21.9 L (25-34) pg MCHC 29.9 L (32-36) g/dL RDW Std Deviation 72.6 H (36.4-46.3) fL RDW Coeff of Omero 27.7 H (11.5-14.5) %
--- NOTE | 2019-03-24 15:28 | Ultrasound Report ---
RENAL ULTRASOUND HISTORY: Abnormal renal function tests. COMPARISON: Abdomen and pelvis CT 03/16/2019. FINDINGS: Right kidney: 10.5 cm. No hydronephrosis. Normal corticomedullary differentiation and cortical thickn ess. Left kidney: 12.2 cm. No hydronephrosis. Normal corticomedullary differentiation and cortical thickne ss. Bladder: No bladder wall thickening. The bilateral ureteral jets were not identified. IMPRESSION: The kidneys and bladder are within normal limits. Electronically signed by: Carson Parrish M.D. 03/24/2019 3:27 PM
[2019-03-24] MEDS: MoRPHine SULFATE 10 MG/ML CARP/VIAL IV PRN ×2 (15:39→20:29)
[2019-03-24] MEDS: RIVAROXABAN 20 MG TAB PO SCH (15:45)
--- NOTE | 2019-03-24 16:06 | Hospitalist Progress Note ---
Date of Service March 24, 2019 Assessment & Plan (1) Ischemic colitis: s/p emergent sigmoid resection with colostomy formation by Dr Mcnair 03/18/19. Etiology of ischemia uncertain. No obvious risk factors for such (tobacco use, HTN, advanced age, etc). Did NOT have hypotension at time of presentation. Was compliant with xarelto at home Hypercoagulable w/u for PEs in 2014 was fully negative. ECHO without source of thrombus. Discussed the need for CTA abd/pelvis to r/o PAD of abdominal vasculature during hospital stay or shortly after discharge. Pathology is resulted in 03 24 with the following 1. ACUTE NECROTIZING COLITIS WITH FEATURES OF ISCHEMIC COLITIS. 2. NEGATIVE FOR MALIGNANCY. Remains on cipro/flagyl. Continue per surgery. NG tube removed 03/23 surgery is managing diet advancement currently on liquid diet Bowel function slowly improving. (2) Anemia: severe iron deficiency based on iron studies. this is likely chronic issue. b12/folate normal. cause of iron deficiency? biopsies taken from stomach/duodenum during EGD negative (no celiac, etc). no evidence of upper GI bleeding during EGD. will need iron replacement. Defer until gut function has normalized and she is taking PO. If prolonged may consider IV iron H/H stable. She is s/p 4 units PRBCs since admission. This will supply some iron for her depleted stores (3) Dyspnea: Echo wnl. Repeat cxr 03/21 stable. Atelectasis seen. No pneumonia or edema. Continue with aggressive pulmonary toilet and incentive spirometry along with ambulation. (4) Pulmonary emboli: h/o such -- 2015. provoked - had the event in setting of ankle surgery. had significant PE burden in March 2015 at time of diagnosis with possible infarction as well. xarelto has been on hold since admission. VTE risk is quite high post-op. Thus, she is on lovenox bridge 100mg q12h. Continue lovenox. Resume xarelto in dmitri of lovenox when taking PO reliably. (5) Gastritis: as seen on EGD H2 Flip IV (6) Candidiasis of mouth and esophagus: nystatin 5cc qid swish and spit improving (7) DVT prophylaxis: lovenox 100mg q12h consult PT/OT Subjective Patient is a excited that her NG tube is out she is tolerating clear liquids she is got no waist in her colostomy bag. Surgery is following and they did do an ultrasound of her kidney as she is having some yellowish discharge out of her EVELIA drain kidney system appears to be intact Review of Systems Review of Systems: ROS: well nourished well developed. No double vision blurry vision No problems with speech or swallowing No palpitations, chest pain or pressure No Wheezing or breathing issues No abdominal pain continues with mild nausea but no vomiting No burning urine urine frequency or changes in color No focal joint pain or muscle pain No skin rashes or oral lesions No unusual bruising or bleeding No focused back pain or numbness or loss of strength No changes in memory or confusion Physical Exam Physical Exam: The patient appeared well nourished and normally developed. Vital signs as documented. Head exam is unremarkable. normocephalic, atraumatic Neck is without jugular venous distension, thyromegaly, or lymphademopathy Lungs are clear to auscultation and percussion. Cardiac exam reveals Rhythm is regular. First and second heart sounds normal. Abdominal exam reveals normal bowel sounds, no masses, no organomegaly colostomy site looks good there is no significant waist output in her colostomy Extremities are nonedematous and both pedal pulses are present Neurologic exam is A&Ox3, no focal deficits, strength is equal bilateral Psychologically seems neither anxious or depressed Skin is warm Dry without bruises or lesions Results & Data Vital Signs (Past 12 Hours) Vital Signs Temp Pulse Resp BP Pulse Ox 03/24/19 07:10 36.9 C 67 15 122/78 93 PG Care Time/CCT Total # of Minutes Spent Total Time Spent with Patient: Total time spent is greater than 50% in coordination of care (as documented) at patient's floor/unit and/or counseling patient: (1) Anemia Anemia type: unspecified type Qualified Code(s): D64.9 - Anemia, unspecified (2) Dyspnea Dyspnea type: dyspnea on exertion Qualified Code(s): R06.09 - Other forms of dyspnea (3) Gastritis Chronicity: unspecified Gastritis bleeding: without bleeding Gastritis type: unspecified gastritis Qualified Code(s): K29.70 - Gastritis, unspecified, without bleeding (4) Pulmonary emboli Acute cor pulmonale presence: without acute cor pulmonale Chronicity: unspecified Pulmonary embolism type: unspecified Qualified Code(s): I26.99 - Other pulmonary embolism without acute cor pulmonale
[2019-03-25] MEDS: D5NSS + 20MEQ KCL 20 MEQ/1,000 ML BAG IV SCH (02:52)
[2019-03-25] MEDS: MoRPHine SULFATE 10 MG/ML CARP/VIAL IV PRN (04:24)
[2019-03-25] MEDS: CIPROFLOXACIN 400 MG/200 ML BAG IV SCH (04:25)
[2019-03-25 07:20] LABS: Albumin Level 2.4 gm/dl (3.4-5.0); BUN Creatinine Ratio 8.7 (10-20); Calcium 8.6 mg/dl (8.5-10.1); Creatinine Clr Calc Pharmacy 107.7 ml/min; Est GFR (African American) 114.6; Est GFR (Non-African American) 98.9; Potassium 3.9 mmol/L (3.5-5.1)
[2019-03-25 07:23] LABS: Albumin Globulin Ratio 0.9 (0.9-2); Bilirubin,Total 0.4 mg/dl (0.2-1); Globulin 2.8 gm/dl (2.5-4.0); Total Protein 5.2 gm/dl (6.4-8.2)
[2019-03-25] MEDS: metroNIDAZOLE 500 MG/100 ML BAG IV SCH (08:27)
[2019-03-25] MEDS: FAMOTIDINE 20 MG in SYRINGE 3 ML IV SCH (08:28)
[2019-03-25] MEDS: NYSTATIN SUSP 500,000 U/5 ML UDC PO SCH ×2 (08:28→13:59)
--- NOTE | 2019-03-25 09:40 | Surgery Progress Note ---
Date of Service pt is doing fine, no abdominal pain, she tolerated regular diet, HORACIO 350ml, clear, HORACIO fluid cr 0.6, renal U/S study normal, March 25, 2019 Assessment & Plan (1) Colon necrosis: POD # 2 s/p ex lap, sigmoid resection for ischemic colitis and end colostomy - leukocytosis resolved - vitals stable, afebrile - hemoglobin stable at 9.4 (9.7 yesterday) - Moderate nausea and pain - abdominal distention with no ostomy output Plan: given increasing nausea and distention, place NGT to LIS Keep NPO Continue IV morphine prn pain, could consider DOUGHMAKER if pain not controlled with intermittent Morphine continue IV fluids Will start IV reglan 10 mg IV q 8 hours for 1 day continue horacio drain to bulb suction Binder when OOB, may remove in bed if too much pain/discomfort Continue SCDs and Lovenox for DVT prophylaxis Continue Pepcid for GI prophyalxis Dr. Hoffmann to cover this weekend Incentive spirometry OOb to chair today Dr. Mcnair has seen and examined pt, agrees with above 03/23/2019 8:57AM doing fine, D/C alexander, pull out NG today after noon, then clear diet, resume Xarelto 20 mg po afternoon, PT will F/U 03/24/2019 12:19PM pt is doing fine regular diet, base on HORACIO drainage 360ml/day, yellow color, in oder to R/O injury urate, order HORACIO fluid to chest creatinine, U/S study for kidney, I inform pt about possibility injury urate during surgery for inflammation and ischemia of sigmoid colon, pt understood, she agrees with the studies. will F/U 03/25/2019 9:38am doing fine, pt can be discharged home today, no heavy lifting > 20 LBS for 4 weeks, she can take a shower today, F/U wv on 04/07/2019 Subjective Patient is a excited that her NG tube is out she is tolerating clear liquids she is got no waist in her colostomy bag. Surgery is following and they did do an ultrasound of her kidney as she is having some yellowish discharge out of her HORACIO drain kidney system appears to be intact Physical Exam Constitutional: WD/WN, vitals as above well developed and well nourished Neck: trachea midline, no thyromegaly Respiratory: normal respiratory effort, lungs clear to auscultation Cardiovascular: RRR, no murmur, no edema Rate/Rhythm: regular rate and regular rhythm Gastrointestinal (Abdomen): Percussion/Palpation: abdomen soft NT, ND , BS +, colostomy is working, Musculoskeletal: no edema on legs Neurologic: awake Psychiatric: Orientation: alert and oriented x 3 Results & Data Vital Signs (Past 12 Hours) Vital Signs Temp Pulse Resp BP BP Pulse Ox 03/25/19 06:58 36.8 C 57 L 20 119/77 98 03/24/19 23:05 37.1 C 68 16 111/70 98 Laboratory Results Abnormal lab results 03/25/19 Range/Units 06:22 BUN 6 L (7-18) mg/dl BUN/Creatinine Ratio 8.7 L (10-20) Glucose 139 H (70-99) mg/dl AST 96 H (15-37) U/L ALT 90 H (12-78) U/L Alkaline Phosphatase 44 L (45-117) U/L Total Protein 5.2 L (6.4-8.2) gm/dl Albumin 2.4 L (3.4-5.0) gm/dl
[2019-03-25] MEDS ORDERED: CIPROFLOXACIN 500 MG TAB PO SCH (16:00)
[2019-03-25] MEDS ORDERED: metroNIDAZOLE 500 MG TAB PO SCH (16:00)
--- NOTE | 2019-03-25 16:37 | Discharge Summary ---
Date of Service March 25, 2019 Admission HPI Per Admitting Provider 53 y/o F c/o abd pain. Pt states that this started suddenly last night after taking her xarelto. She had an episode of emesis at that time. Abd pain starts laterally and moves into the center of her abd. Her pain worsened and she had n/v this AM. Denies blood in her emesis. She has been constipated lately, no blood in her stool. She has never had abd pain like this in the past. Pt denies fever, SOB, chest pain, LE pain or swelling. Pt does feel somewhat improved s/p ED interventions, but still with abd pain. Principal Diagnosis ischemic colitis s/p surgical resection and colostomy Discharge Exam Constitutional well developed and average body habitus Eyes no conjunctival abnormality and no scleral abnormality Neck normal visual inspection and trachea midline Respiratory normal respiratory effort; no respiratory distress Auscultation: lungs clear to auscultation bilaterally Cardiovascular RRR, no murmur, no edema Discharge Data Allergies Allergy/AdvReac Type Severity Reaction Status Date / Time Penicillins Allergy Severe HIVES, Verified 03/18/19 12:48 SOB, FACIAL SWELLING benzonatate AdvReac Intermediate rash Verified 03/18/19 12:48 [From Dior Young] Consultations 03/16/19 13:12 ED Decision to Admit Stat 03/16/19 13:13 ED Decision to Admit Stat 03/16/19 14:59 Consult Case Management - Discharge Planning Routine Consult Outdoor Landscape Architect Routine 03/16/19 17:06 Consult Gastroenterology Routine 03/18/19 14:41 Consult General Surgery Stat Procedures Performed Operation Date: 03/18/19 07:50 Actual Procedures p Exploratory Laparotomy(Not Applicable) - Mary Kay Mcnair MD Operation Date: 03/18/19 09:30 Actual Procedures p EGD Biopsy Cytology - Bautista Ellis MD s Colonoscopy Biopsy Cytology - Bautista Ellis MD Ordered Studies 03/16/19 11:01 CT abd pelvis IV con only Stat 03/24/19 12:11 US renal/blad retro comp Routine Hospital Course (1) Ischemic colitis: s/p emergent sigmoid resection with colostomy formation by Dr Mcnair 03/18/19. Etiology of ischemia uncertain. No obvious risk factors for such (tobacco use, HTN, advanced age, etc). Did NOT have hypotension at time of presentation. Was compliant with xarelto at home Hypercoagulable w/u for PEs in 2014 was fully negative. ECHO without source of thrombus. Discussed the need for CTA abd/pelvis to r/o PAD of abdominal vasculature during hospital stay or shortly after discharge. Pathology is resulted in 7 9 with the following 1. ACUTE NECROTIZING COLITIS WITH FEATURES OF ISCHEMIC COLITIS. 2. NEGATIVE FOR MALIGNANCY. Bowel function improved and tolerated po and surgery feels she will be stable for discharge (2) Anemia: severe iron deficiency based on iron studies. this is likely chronic issue. b12/folate normal. cause of iron deficiency? biopsies taken from stomach/duodenum during EGD negative (no celiac, etc). no evidence of upper GI bleeding during EGD. will need iron replacement. Defer until gut function has normalized and she is taking PO. If prolonged may consider IV iron H/H stable. She is s/p 4 units PRBCs since admission. This will supply some iron for her depleted stores (3) Dyspnea: Echo wnl. Repeat cxr 03/21 stable. Atelectasis seen. No pneumonia or edema. (4) Pulmonary emboli: h/o such -- 2015. provoked - had the event in setting of ankle surgery. had significant PE burden in March 2015 at time of diagnosis with possible infarction as well. xarelto has been on hold since admission. VTE risk is quite high post-op. Resume xarelto (5) Gastritis: as seen on EGD (6) Candidiasis of mouth and esophagus: nystatin 5cc qid swish and spit improved (7) DVT prophylaxis: xarelto Total Time Total Time Spent Total Time Spent (In Minutes): greater than 30 minutes were required to prepare discharge Discharge Plan Discharge Items Patient Disposition: Home - Home Health Services Reason For Visit: ANEMIA Discharge Diagnosis: Sigmoid colon ischemia Discharge Goals: Decrease discomfort and Improve function Activity: Per 'Additional Instructions' section Non-emergency contact: Surgeon Call non-emergency contact if: your pain is not controlled, your pain is worsening, your pain is concerning for you, you have a fever, your temperature is above 101, your wound has increased redness, your wound has increased drainage and your wound pain has increased Follow-up/Referrals: Paulo Weston III, MD [Primary Care Provider] - 03/31/19 2:30 pm (Please, follow up at Dr. Weston's office with his associate, Dr. Stevens, on SaturdayMarch 31 at 2:30 pm. *If you need to change this appointment, call their office at [phone].) Diet: Regular Addtl Provider Instructions: Surgical discharge instructions: - no heavy lifting over 10 pounds for at least 6 weeks - no strenuous activity until cleared by surgeon - no submerging incision underwater for 2 weeks (no bathing, swimming, or hot tubs) - no driving while taking narcotic pain medication or until you are pain free - You may shower. Gently allow water to run over incision and pat dry. Cover with small bandage. - Surgical guillaume will be removed in surgical office in a few weeks - Wear abdominal binder for support, may remove at bedtime if needed - Walking and light activity encouraged multiple times a day to prevent blood clots from forming - Take Percocet as needed for moderate to severe pain. - May take extra strength Ibuprofen as needed for mild pain - Percocet can cause constipation. You may take stool softener (Colace) as needed. - Follow-up in surgical office in 1 week, please call office at [phone] to make an appointment. Prescriptions: New oxycodone-acetaminophen [Percocet] 5-325 mg Tablet 1 tab PO Q4H PRN (Reason: pain) Qty: 20 RF: 0 Continued Xarelto 20 mg tablet 20 mg PO PM RF: 0 Stand-Alone Forms: Call Back Authorization, [facility], [facility]/Other Patient Handouts: Surgery Prevent DVT After, Colostomy Stoma Care Discharge Orders: Discharge Order (Routine); Ordered 03/25/19 Ordered By: Sebastian Aden Admission Data Admit Date/Time: 03/16/19 13:29 Attending Provider: Sebastian Aden Admit Provider: Tessy Sahni Primary Care Provider: Paulo Weston III Other Providers: Tessy Sahni ; Logan Turpin ; Angel Mondragon ; Ronen Garcia ; Mary Kay Mcnair ; Maldonado Mae ; Home,Nursing Agency Service: Medical Other Interventions: Discharge Summary Assessment (RN) Last Done: 03/25/19 12:04 DC Date/Time DO NOT enter until pt leaves facility: 03/25/19 14:13
[2019-03-25] MEDS ORDERED: FAMOTIDINE 20 MG TAB PO SCH (21:00)
== END 2019-03-25 14:13 | disposition home health service (06) | DRG 329 ==
LOC: ED 10:33 → SUATTDRO 13:29 → 1E 13:29 → 2N 03-20 19:34 → 3N 03-22 12:56